=== PATIENT | female | born 1965 | race Two or more races ===

== ENCOUNTER 2021-05-21 07:18 | Outpatient (REF) | payer OTHER, SELFPAY ==
[2021-05-21 08:27] LABS: Alanine Aminotransferase 13 U/L (0-31); Albumin Level 4.3 g/dL (3.5-5.0); Alkaline Phosphatase 88 U/L (39-117); Anion Gap 10 (12-20); Aspartate Amino Transferase 19 U/L (5-31); Bilirubin Total 0.4 mg/dL (0.0-1.0); Blood Urea Nitrogen 16 mg/dL (9-16); Calcium 9.7 mg/dL (8.4-10.2); Carbon Dioxide 29 mmol/L (22-29); Chloride 105 mmol/L (96-108); Cholesterol 255 mg/dL; Estimated Glomerular Filt Rate > 60; Glucose Fasting 80 mg/dL (60-99); HDL Cholesterol 139 mg/dL; LDL Cholesterol Calculated 108 mg/dl; Potassium 4.3 mmol/L (3.3-5.1); Sodium 140 mmol/L (135-145); Total Protein 7.3 g/dL (6.5-8.0); Triglycerides 40 mg/dL
[2021-05-21 08:49] LABS: Vitamin D 25-OH Total 38.7 ng/mL (>30)
== END 2021-05-21 07:19 | disposition home or self-care (01) ==
LOC: HO.LAB 07:18
PROVIDERS: PCP Internal Medicine; Visit Provider Internal Medicine
DX: E78.00 Pure hypercholesterolemia, unspecified (principal); E55.9 Vitamin D deficiency, unspecified
CPT/HCPCS: 36415; 80053; 80061; 82306

== ENCOUNTER 2021-09-10 07:43 | Outpatient (REF) | payer OTHER, SELFPAY ==
--- NOTE | ~2021-09-10 | MM_ITS ---
EXAMINATION: MM SCREENING DIGITAL BREAST TOMOSYNTHESIS, BILATERAL CLINICAL INFORMATION: Screening. Asymptomatic. The lifetime risk of breast cancer based on the Tyrer-Cuzick Model is 15%. COMPARISON: Mammography: 07/08/2020, 02/27/2019, 02/17/2018, 01/30/2017, 01/11/2016 TECHNIQUE: Digital breast tomosynthesis is performed in both the craniocaudal and mediolateral oblique views along with computer-aided detection (CAD). Synthesized 2D images are generated from the tomosynthesis. FINDINGS: The breasts are heterogeneously dense, which may obscure small masses (ACR BI-RADS breast composition Category c). Parenchymal pattern is similar to prior studies. Scattered bilateral stable parenchymal asymmetries are present. There is no developing density. There is no interval mass or architectural abnormality. Again, scattered bilateral fine and some coarse lucent centered calcifications are present, greater in number on left. No interval suspicious calcifications. The axilla and skin contours are unremarkable. MM/MM tomosynthesis screening BI IMPRESSION: No significant changes from prior exams. ASSESSMENT: BI-RADS 2: Benign RECOMMENDATION: Routine annual mammography screening. This patient's information was entered into a reminder system with a target due date for their next mammogram.
== END 2021-09-10 07:44 | disposition home or self-care (01) ==
LOC: HO.MAMMO 07:43
PROVIDERS: Visit Provider Internal Medicine
DX: Z12.31 Encounter for screening mammogram for malignant neoplasm of breast (principal)
CPT/HCPCS: 77063; 77067

== ENCOUNTER → 2021-10-27 09:07 | Outpatient (BNVA) | payer OTHER, SELFPAY | PROVIDERS: PCP Internal Medicine; Visit Provider Physician Assistant | DX: S62.623B Displaced fracture of middle phalanx of left middle finger, initial encounter for open fracture (principal); W31.9XXA Contact with unspecified machinery, initial encounter | CPT/HCPCS: 12031; 73140; 90714; 90715; 99204 ==

== ENCOUNTER → 2021-10-29 09:56 | Outpatient (BNVA) | payer OTHER, SELFPAY | PROVIDERS: PCP Internal Medicine; Visit Provider Physician Assistant Medical | DX: S61.313A Laceration without foreign body of left middle finger with damage to nail, initial encounter (principal); W31.9XXA Contact with unspecified machinery, initial encounter | CPT/HCPCS: 99213 ==

== ENCOUNTER → 2021-11-02 07:57 | Outpatient (BNVA) | payer OTHER, SELFPAY | PROVIDERS: PCP Internal Medicine; Visit Provider Internal Medicine | DX: S62.663B Nondisplaced fracture of distal phalanx of left middle finger, initial encounter for open fracture (principal); W31.9XXA Contact with unspecified machinery, initial encounter | CPT/HCPCS: 99213 ==

== ENCOUNTER → 2021-11-05 08:29 | Outpatient (BNVA) | payer OTHER, SELFPAY | PROVIDERS: PCP Internal Medicine; Visit Provider Internal Medicine | DX: S62.663B Nondisplaced fracture of distal phalanx of left middle finger, initial encounter for open fracture (principal); W31.9XXA Contact with unspecified machinery, initial encounter; L29.9 Pruritus, unspecified; T36.1X5A Adverse effect of cephalosporins and other beta-lactam antibiotics, initial encounter | CPT/HCPCS: 99214 ==

== ENCOUNTER → 2021-11-08 08:02 | Outpatient (BNVA) | payer OTHER, SELFPAY | PROVIDERS: PCP Internal Medicine; Visit Provider Internal Medicine | DX: S61.213A Laceration without foreign body of left middle finger without damage to nail, initial encounter (principal); W23.0XXA Caught, crushed, jammed, or pinched between moving objects, initial encounter | CPT/HCPCS: 99212; 99214 ==

== ENCOUNTER → 2021-11-11 13:45 | Outpatient (BNVA) | payer OTHER, SELFPAY | PROVIDERS: PCP Internal Medicine; Visit Provider Internal Medicine | DX: S61.313A Laceration without foreign body of left middle finger with damage to nail, initial encounter (principal); W31.9XXA Contact with unspecified machinery, initial encounter | CPT/HCPCS: 99213 ==

== ENCOUNTER → 2021-11-16 08:56 | Outpatient (BNVA) | payer OTHER, SELFPAY | PROVIDERS: PCP Internal Medicine; Visit Provider Internal Medicine | DX: S61.313A Laceration without foreign body of left middle finger with damage to nail, initial encounter (principal); W31.9XXA Contact with unspecified machinery, initial encounter | CPT/HCPCS: 99213 ==

== ENCOUNTER → 2021-11-23 07:58 | Outpatient (BNVA) | payer OTHER, SELFPAY | PROVIDERS: PCP Internal Medicine; Visit Provider Internal Medicine | DX: S61.313D Laceration without foreign body of left middle finger with damage to nail, subsequent encounter (principal); S62.663D Nondisplaced fracture of distal phalanx of left middle finger, subsequent encounter for fracture with routine healing; W31.9XXD Contact with unspecified machinery, subsequent encounter; R11.0 Nausea | CPT/HCPCS: 73140; 99214 ==

== ENCOUNTER → 2021-11-25 13:50 | Outpatient (BNVA) | payer OTHER, SELFPAY | PROVIDERS: Visit Provider Physician Assistant | DX: S67.193A Crushing injury of left middle finger, initial encounter (principal); S62.603A Fracture of unspecified phalanx of left middle finger, initial encounter for closed fracture; W31.9XXA Contact with unspecified machinery, initial encounter | CPT/HCPCS: 99212 ==

== ENCOUNTER → 2021-11-30 08:14 | Outpatient (BNVA) | payer OTHER, SELFPAY | PROVIDERS: Visit Provider Internal Medicine | DX: S62.633D Displaced fracture of distal phalanx of left middle finger, subsequent encounter for fracture with routine healing (principal); W31.9XXD Contact with unspecified machinery, subsequent encounter | CPT/HCPCS: 99213 ==

== ENCOUNTER → 2021-12-07 12:59 | Outpatient (BNVA) | payer OTHER, SELFPAY | PROVIDERS: Visit Provider Internal Medicine | DX: S62.663D Nondisplaced fracture of distal phalanx of left middle finger, subsequent encounter for fracture with routine healing (principal); W31.9XXD Contact with unspecified machinery, subsequent encounter; M25.542 Pain in joints of left hand | CPT/HCPCS: 99213 ==

== ENCOUNTER → 2021-12-15 11:28 | Outpatient (BNVA) | payer OTHER, SELFPAY | PROVIDERS: Visit Provider Physician Assistant | DX: S62.639D Displaced fracture of distal phalanx of unspecified finger, subsequent encounter for fracture with routine healing (principal) | CPT/HCPCS: 99212 ==

== ENCOUNTER → 2021-12-23 09:35 | Outpatient (BNVA) | payer OTHER, SELFPAY | PROVIDERS: Visit Provider Internal Medicine | DX: S62.613D Displaced fracture of proximal phalanx of left middle finger, subsequent encounter for fracture with routine healing (principal); W31.9XXD Contact with unspecified machinery, subsequent encounter | CPT/HCPCS: 99213 ==

== ENCOUNTER 2022-03-22 09:30 | Outpatient (RCR) | payer OTHER, SELFPAY ==
--- NOTE | 2021-12-01 13:01 | MHC.OT.OEV ---
[address] [phone] F: [phone] Occupational Therapy Evaluation Diagnosis: R 3RD FINGER CRUSH INJURY Date of Onset: 10/27/21 Date of Surgery: Attending Provider: Pedro Gu Prescribed Treatment: EVAL AND DEBI KILPATRICK Follow Up Appointment: 12/07/21 History of Current Condition: 56-year-old [id number] female who presents the office today after sustaining a crush injury while at work on 10/27/2021 to the left middle finger. XRAYS REVEALED Comminuted fracture distal phalangeal tuft left third distal phalanx with associated laceration soft tissues. SUTURES WERE PLACED AFTER INJURY AND REMOVED TWO WEEKS LATER. FINISHED ANTIBIOTICS 11/30/20. 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 REQUIRED TO LIFT ABOUT 50 POUNDS AT TIMES. HOBBIES: TO EXERCISE, READING, PLAY WITH GRANDKIDS (SIX GRANDCHILDREN RANGES FROM 17-3 YEARS OLD) Living Situation, Family and/or Social Support: LIVES WITH SPOUSE Current Level of Function and Occupation Self Care, Employment, Leisure: [employer] SINCE INJURY. DIFFICULTIES WITH USING A KNIFE/ CUTTING, WASHING DISHES, LIFTING GROCERY BAGS. TROUBLE WITH BUTTONING, PULLING UP PANTS. Sleep: MODERATE DIFFICULTIES WITH SLEEPING Driving: PAIN WITH USING TURN SIGNAL/ LEFT HAND TASKS Pain Assessment Pain Score: 7-9/10 Pain Scale Used: Numeric (0 - 10) Pain Location and Description: LEFT MIDDLE FINGER, DISTAL TIP 7/10 AT REST 9/10 WITH USE Aggravating Factors: FLEXING FINGER, BUMPING/ TOUCHING NAIL BED Alleviating Factors: IBUPROFEN, RESTING; HAS NOT TRIED ICE/HEAT Skin and Soft Tissue Assessment Skin and Soft Tissue: Nail Changes Ecchymosis Comments: ECCHYMOSIS TO NAIL BED IN L MF, WELL ESCHAR TISSUE TO DISTAL FINGER PAD NAIL REMAINS INTACT Sensory Assessment Temperature: Light Touch: Left Impaired Proprioception: Vibration: Comments: REPORTS HYPERSENSITIVITY TO DISTAL END OF MF SEMMES TIKA IMPAIRED TO LIGHT TOUCH L DISTAL END OF MF ULNAR > RADIAL ASPECT Edema Assessment Upper Extremity: Lower Extremity: Comments: CIRCUMFERENCE DIPj L 5.0 CM, R 4.8 CM CIRCUMFERENCE PIPj L 5.9 CM, R 5.6 CM Dexterity Assessment Dexterity: Left Impaired Comments: FUNCTIONAL DEXTERITY TEST: LEFT 54 SECONDS (MIN FUNCTIONAL), RIGHT 20 SECONDS GUARDING LEFT MF WITH DEXTERITY TESTING AROM(PROM) Strength Wrist Flexion: L 52, R 54 Extension: L 65, R 65 Ulnar Deviation: Radial Deviation: Comments: Flexion: Extension: Ulnar Deviation: Radial Deviation: Comments: Digits Index MCP: PIP: DIP: Long MCP: L 88, R 86 PIP: L 0/68, R 86 DIP: L 0/0, R 62 Ring MCP: PIP: DIP: Small MCP: PIP: DIP: Comments: Gross Grasp: R 22 Lateral Pinch: R 5 Two-Point Pinch: R 3 Three-Jaw Lavon: R 4 Comments: VEGETABLE SORTER AND PINCH TESTING DEFERRED ON LEFT Patient Education Primary Language: Excel Vba Developer Required: No Current Knowledge: Understands information with skills for self-management Teaching Method: Demonstration Handouts Phone Call Verbal Education Needs Identified on Evaluation: ADL's Disease Information Equipment Use Exercise Pain Safety How did patient/family demonstrate learning? Patient demonstrates Patient verbalizes Barriers to Learning: None Readiness for Learning: Accepting Who was educated? Patient Comments: Plan of Care Assessment: MS FITZGERALD IS 5 WEEKS S/P TUFT FRACTURE DUE TO A CRUSH INJURY. 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 A 78% LIMITATION IS REPORTED PER THE QUICK DASH ASSESSMENT. SHE WOULD CONTINUE TO BENEFIT FROM SKILLED OT TO ADDRESS ROM, STRENGTH, COORDINATION, DESENSITIZATION STRATEGIES, WOUND CARE, AND WORK CONDITIONING TASKS. STG Duration: 2 WEEKS Short Term Goals: IND HEP IND DESENSITIZATION STRATEGIES IND USE OF HEAT/ICE INCREASE DIP FLEX TO 20 DEGREES INCREASE PIP FLEX TO 80 DEGREES REPORT <5/10 PAIN AT REST LTG Duration: 4 WEEKS Formation Testing Operator Goals: L VEGETABLE SORTER >15 POUNDS INCREASE DIP FLEX TO 40 DEGREES IMPROVE DEXTERITY TO FUNCTIONAL PER FUNCTIONAL DEXTERITY TEST FOR ADLs QUICK DASH <50% TOLERATE LIFTING ABOUT 15 POUNDS WITH <5/10 PAIN USING PROPER BODY MECHANICS Frequency and Duration: The patient will be seen 3X/WEEK FOR 4 WEEKS Treatment Plan: Therapeutic Exercise Therapeutic Activity Home Exercise Program Splinting Neuro Re-ed Patient Education Desensitization/Sensory Re-ed Edema Control ADL Training Ultrasound NMES Iontophoresis Paraffin Fluidotherapy MHP Cold Packs Joint Mobilization Soft Tissue Mobilization Kinesiotaping Electronically Signed By: MARY GILLILAND OTR/L Reviewed/agree with student documentation: N/A Therapist: Please sign and return to therapist, Thank you for your referral.
--- NOTE | 2022-03-22 09:20 | MHC.OT.DC ---
[address] [phone] F: [phone] Occupational Therapy Discharge Note Provider: Pedro Gu Diagnosis: R 3RD FINGER CRUSH INJURY Date of Surgery: Date of Evaluation: 12/01/21 Date of Discharge: 03/22/22 Treatments to Date: Cancellations to Date: 7 No Shows to Date: 1 Discharge Status: Discharge Summary: GOOD INC IN DIPJ FLEX AFTER TREATMENT , GAINS NOT CARRIED OVER FROM LAST APPT CON'T MILD DIGIT EDEMA. FINGERNAIL TRIMED. TENDER AT MEDIAL TIP. WILL BENEFIT FROM MORE AGGRESSIVE HEP Pt GOING TO THE GYM, SHOULD BE ABLE TO TOLERATE LIFTING WHEN SHE RETURNS TO WORK CX AND NO SHOWED LAST SCHEDULED APPTS Electronically Signed By: FAUSTO LIM OT CHT CLT Reviewed/agree with student documentation: N/A Therapist: Please Sign and return to therapist, thank you for your referral.
--- NOTE | 2022-03-22 10:34 | MHC.OT.DC ---
[address] [phone] F: [phone] Occupational Therapy Discharge Note Provider: Pedro Gu Diagnosis: R 3RD FINGER CRUSH INJURY Date of Surgery: Date of Evaluation: 12/01/21 Date of Discharge: 03/22/22 Treatments to Date: 23 Cancellations to Date: 7 No Shows to Date: 1 Discharge Status: Improved Function Independent with HEP Discharge Summary: Pt lapse in rx due to Covid sx . Pt working on ROM and hand strength Carried over gains from last appt PIPj flex 90 deg and DIPj flex 40 deg and inc DIPj flexion today to 45 deg Pt is indep with her HEP , has a digit flexion strap and her own goniometer to self assess She plans to return to the gym , now out of quarantine and she is anxious to RTW Electronically Signed By: FAUSTO LIM OT CHT CLT Reviewed/agree with student documentation: N/A Therapist: Please Sign and return to therapist, thank you for your referral.
== END 2022-03-22 10:34 ==
LOC: HO.OT 09:30
PROVIDERS: Visit Provider Internal Medicine
DX: S62.632D Displaced fracture of distal phalanx of right middle finger, subsequent encounter for fracture with routine healing (principal)
CPT/HCPCS: 29130; 29131; 97035; 97110; 97112; 97140; 97166; 97530; 97760

== ENCOUNTER 2022-07-15 11:56 | Outpatient (REF) | payer OTHER, SELFPAY ==
--- NOTE | ~2022-07-15 | XR_ITS ---
EXAMINATION: XR SHOULDER, RIGHT CLINICAL INFORMATION: Pain COMPARISON: None TECHNIQUE: AP external rotation, Grashey, scapular Y, and axillary views of the right shoulder. FINDINGS: Mild acromioclavicular arthritis. No fracture. Glenohumeral and acromioclavicular alignment is anatomic with normal joint space. No abnormal soft tissue calcifications. XR/XR shoulder RT min 2V IMPRESSION: Mild acromioclavicular arthritis. No acute findings.
== END 2022-07-15 11:57 | disposition home or self-care (01) ==
LOC: HO.XRAY 11:56
PROVIDERS: PCP Internal Medicine; Visit Provider Internal Medicine
DX: M25.511 Pain in right shoulder (principal)
CPT/HCPCS: 73030

== ENCOUNTER 2022-09-09 09:43 | Outpatient (REF) | payer OTHER, SELFPAY | END 2022-09-09 09:44 | disposition home or self-care (01) | LOC: HO.MRI 09:43 | PROVIDERS: Visit Provider Internal Medicine | DX: Z13.89 Encounter for screening for other disorder (principal) ==

== ENCOUNTER 2022-09-16 07:47 | Outpatient (REF) | payer OTHER, SELFPAY ==
--- NOTE | ~2022-09-16 | MM_ITS ---
EXAMINATION: MM SCREENING DIGITAL BREAST TOMOSYNTHESIS, BILATERAL CLINICAL INFORMATION: Screening. Asymptomatic. The lifetime risk of breast cancer based on the Tyrer-Cuzick Model is 14%. COMPARISON: Mammography: 09/10/2021, 07/08/2020, 02/27/2019 TECHNIQUE: Digital breast tomosynthesis is performed in both the craniocaudal and mediolateral oblique views along with computer-aided detection (CAD). Synthesized 2D images are generated from the tomosynthesis. FINDINGS: There are scattered areas of fibroglandular density (ACR BI-RADS breast composition Category b). Breast tissue composition borders on heterogeneously dense. Parenchymal pattern is similar to prior studies. There is no developing density or interval architectural abnormality. Again, there are scattered minor asymmetries similar to prior studies. There are scattered punctate calcifications in each breast similar in number and distribution to prior studies. The axilla and skin contours are unremarkable. MM/MM tomosynthesis screening BI IMPRESSION: No mammographic evidence of malignancy. ASSESSMENT: BI-RADS 2: Benign RECOMMENDATION: Routine annual mammography screening. This patient's information was entered into a reminder system with a target due date for their next mammogram.
== END 2022-09-16 07:48 | disposition home or self-care (01) ==
LOC: HO.MAMMO 07:47
PROVIDERS: PCP Internal Medicine; Visit Provider Internal Medicine
DX: Z12.31 Encounter for screening mammogram for malignant neoplasm of breast (principal)
CPT/HCPCS: 77063; 77067

== ENCOUNTER 2022-09-17 07:26 | Outpatient (REF) | payer OTHER, SELFPAY ==
[2022-09-17 07:43] LABS: MANUAL DIFF FLAG NO
[2022-09-17 08:08] LABS: Basophils Percent Auto 0.8 % (0-2); Eosinophils Absolute Auto 0.5 X10*3/uL (0.0-0.4); Eosinophils Percent Auto 9.6 % (0-4); Hematocrit 45.1 % (37.0-47.0); Hemoglobin 14.4 g/dl (12.0-16.0); Imm Gran Abs Auto 0.01 X10*3/uL (0.00-0.03); Imm Gran Pct Auto 0.2 % (0.0-0.4); Lymphocytes Absolute Auto 2.3 X10*3/uL (1.2-4.9); Lymphocytes Percent Auto 45.2 % (20-40); Mean Corpuscular HGB Conc 31.9 g/dl (31.0-35.0); Mean Corpuscular Hemoglobin 27.3 pg (27.0-33.0); Mean Corpuscular Volume 85.6 fL (80.0-98.0); Mean Platelet Volume 10.3 fL (9.4-12.3); Monocytes Absolute Auto 0.4 X10*3/uL (0.1-1.2); Monocytes Percent Auto 8.6 % (2-11); Neutrophils Absolute Auto 1.8 x10*3/uL (2.0-8.3); Neutrophils Percent Auto 35.6 % (45-73); Platelet Count 270 X10*3/uL (160-400); Red Blood Count 5.27 X10*6/uL (4.20-5.50); Red Cell Distribution Width 13.2 % (11.0-16.0); White Blood Count 5.1 X10*3/uL (4.8-10.8)
[2022-09-17 08:40] LABS: Alanine Aminotransferase 13 U/L (0-31); Albumin Level 4.5 g/dL (3.5-5.0); Alkaline Phosphatase 91 U/L (39-117); Anion Gap 15 (12-20); Aspartate Amino Transferase 20 U/L (5-31); Bilirubin Total 0.3 mg/dL (0.0-1.0); Blood Urea Nitrogen 12 mg/dL (9-16); Calcium 9.9 mg/dL (8.4-10.2); Carbon Dioxide 28 mmol/L (22-29); Chloride 104 mmol/L (96-108); Cholesterol 253 mg/dL; Estimated Glomerular Filt Rate > 60; Glucose Fasting 81 mg/dL (60-99); HDL Cholesterol 109 mg/dL; LDL Cholesterol Calculated 128 mg/dl; Potassium 4.2 mmol/L (3.3-5.1); Sodium 143 mmol/L (135-145); Total Protein 7.4 g/dL (6.5-8.0); Triglycerides 84 mg/dL
[2022-09-17 09:02] LABS: Appearance Urine Clear; Color Urine Yellow; Glucose Urine UA Negative (Negative); Leukocyte Esterase Urine Trace (Negative); Nitrite Urine Negative (Negative); Specific Gravity - Urine <= 1.005 (1.005-1.025); UMIC TRIGGER UACC YES; Urine Blood Negative (Negative); Urine Ketones Negative (Negative); Urine Protein Negative (Neg-Trace)
[2022-09-17 09:03] LABS: TSH reflex Free T4 0.86 uIU/mL (0.32-4.0); Vitamin D 25-OH Total 34.4 ng/mL (>30)
[2022-09-17 09:08] LABS: Bacteria Urine None Seen (None Seen); Hyaline Casts Urine 0-2 /LPF (0-2); RBC Urine 0-2 /HPF (0-2); Squamous Epithelial Cell Urine 0-2 /HPF (0-2); WBC Urine 0-5 /HPF (0-5)
== END 2022-09-17 07:27 | disposition home or self-care (01) ==
LOC: HO.LAB 07:26
PROVIDERS: PCP Internal Medicine; Visit Provider Internal Medicine
DX: Z00.00 Encounter for general adult medical examination without abnormal findings (principal); E78.00 Pure hypercholesterolemia, unspecified; E55.9 Vitamin D deficiency, unspecified
CPT/HCPCS: 36415; 80053; 80061; 81001; 81003; 82306; 84443; 85025

== ENCOUNTER 2022-11-16 06:36 | Day surgery (SDC) | payer OTHER, SELFPAY ==
[2022-11-16] VITALS (17 sets, daily range): BP systolic 108–138; BP diastolic 66–84; PULSE 61–84; RESP 15–21; TEMP 36.4–36.8; O2SAT 90–99; BMI 28.0
[2022-11-16] MEDS: Lactated Ringers 1,000 ML 100 ML IVCONT (07:26)
--- NOTE | 2022-11-16 11:05 | P.OP_ITS ---
Operative Note Operative Note Date of Service: 11/16/22 Narrative: Date of Service: 11/16/22 Pre-op diagnosis: Right RTC tear Post-op diagnosis: same Procedure: Right RTC repair Implants: Cerrato and Nephew Helacoil x 4 Surgeon: Kevin Palomino MD Anesthesia: GETA and regional Was an Apprentice Carpenter used for this Procedure?: Yes Apprentice Carpenter: Mary Richey Estimated blood loss (mL): 20 IV fluids (mL): 1,000 Pathology: none sent Condition: stable Disposition: PACU Procedure in detail: Patient was brought to the operating room and placed the the beach chair position. All bony prominences were well padded and the limb was prepped and draped in standard sterile fashion. A time out was called to identify proper site, proper procedure and proper surgeon. IV antibiotics per weight were administered. I began by making a posterolateral stab incision with a 15 blade. A blunt trochar was placed into the glenohumeral joint and I insufflated the joint with saline and a 30 degree arthroscope was placed. I established an outside- in anterior portal just distal to the biceps tendon. I then began my inspection of the glenohumeral joint. There was normal biceps anchor and labrum. There were no cartilage changes. The sbuscapularis was intract. There was a full thickness superior cuff tear with mild retraction. I then removed the trochar and entered the subacromial space. A direct lateral portal was then established and I performed a bursectomy. The cuff was then examined. There was a full thickness crescentic tear of the supra and infraspinatus that was mobile. The tear was mobile. I establiched an additional posterosuperior portal. I then placed two medial row double loaded anchors and then, using the Scorpion suture pasing device, I brought the suture limbs through the medial cuff. I then debrided the bare area down to bleeding bone and, using a cross bridge configuration, brought four limbs to each of two lateral 5.5mm anchors. This re-approximated the cuff anatomy anatomically. I then performed a 5 mm subacromial decompression. Once I was satisfied with the repair final images were captured and I removed all instrumentation. Portals were closed with nylon. Patient was placed in an abduction sling, extubated and brought to the recovery room in stable condition. There were no known complications.
--- NOTE | 2022-11-16 11:29 | MHC.SHP ---
Pre-Procedural Eval Section A Date of Service: 11/16/22 The patient is an INPATIENT: No Changes since office visit: No Cold of Flu in the past 2 weeks, No New Medical Problems, No Changes in Medication and No Patient answered all questions The History & Physical has been completed within 30 days and I have reviewed it.: Yes Section B Chief Complaint: Complete rotator cuff tear or rupture of right Allergies: Allergies Allergy/AdvReac Type Severity Reaction Status Date / Time amoxicillin [AMOXICILLIN] Allergy Mild RASH Verified 11/16/22 06:59 Penicillins Allergy Rash Verified 11/16/22 06:59 Plan I have reviewed the history and physical and performed a pertinent physical examination on my patient. No changes have occurred unless specified. Time Spent With Patient Time: Total time managing care of this patient today ____ minutes.
[2022-11-16] MEDS: Acetaminophen 1,000 MG/100 ML PIGGYBACK 400 MG IV (11:37)
[2022-11-16] MEDS: fentaNYL citrate/PF 100 MCG/2 ML VIAL 25 MCG IVPUSH ×2 (11:38→12:08)
[2022-11-16] MEDS: oxyCODONE HCl Immed Release 5 MG TABLET PO (11:38)
--- NOTE | 2022-11-16 15:33 | HO.ANESPROP2 ---
HPI - Anesthesia Eval Consult details Narrative: 57 F for right rotator cuff repair PMFSH Active Problems Active Problems: All Active Problems (Updated 11/16/22 @ 06:55 by Salina Wyatt, RN) S/P rotator cuff repair (Acute) Annual physical exam (Acute) Pure hypercholesterolemia (Acute) Frequent bowel movements (Acute) Fracture of finger of left hand (Acute) Closed fracture of tuft of distal phalanx of finger (Acute) Right shoulder pain (Acute) Painful arc syndrome of right shoulder (Acute) Cervical radiculopathy (Acute) Rotator cuff tear arthropathy of right shoulder (Acute) Overweight (BMI 25.0-29.9) (Acute) Depression (Acute) Anxiety (Acute) Insomnia (Acute) Rosacea (Acute) Vitamin D deficiency (Acute) Migraine (Acute) Past Medical History Medical History (Updated 11/16/22 @ 06:55 by Salina Wyatt RN) Anxiety Chronic recurrent major depressive disorder Depression Hyperlipidemia, unspecified Insomnia Migraine Overweight (BMI 25.0-29.9) Rosacea Unspecified hemorrhoids Vitamin D deficiency Family History Family History Father CVD (cardiovascular disease) Diabetes mellitus HTN (hypertension) Mother Diabetes mellitus HTN (hypertension) Family history of problems with anesthesia: No Surgical History Surgical History (Updated 11/16/22 @ 12:36 by Mary Richey PA-C) H/O colonoscopy (~06/2018) H/O tubal ligation Hx laparoscopic cholecystectomy History of Problems with Anesthesia: No Social History Social History Housing: House Alcohol intake: former Patient Tobacco Use Status: Never used Tobacco Second Hand Smoke Exposure: No service: No Current occupational status: employed 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 Cognitive needs: No Hearing needs: No Vision needs: Yes Meds Allergies Allergy/AdvReac Type Severity Reaction Status Date / Time amoxicillin [AMOXICILLIN] Allergy Mild RASH Verified 11/16/22 06:59 Penicillins Allergy Rash Verified 11/16/22 06:59 Home Medications Medication Instructions Recorded Confirmed Last Taken Type ergocalciferol (vitamin D2) 25,000 1 unit PO DAILY 11/16/22 11/16/22 Unknown History unit capsule Exam Exam Date and Time: November 16, 2022 1533 Height,Weight and Vital Signs: Height 5 ft 2 in Weight 69.4 kg Last Vital Signs Temp 98.3 F 11/16/22 13:24 Pulse 66 11/16/22 13:24 Resp 19 11/16/22 13:24 BP 116/73 11/16/22 13:24 Pulse Ox 96 11/16/22 13:24 O2 Del Method 11/16/22 13:24 O2 Flow Rate 1 11/16/22 12:54 Airway Mallampati Class: III TM Dist: >3cm Neck ROM: Full Loose/Missing/Broken Teeth: Yes Heart: S1,S2 Lungs: b/l breath sounds Assessment and Plan Assessment Anesthesia Assessment: Anesthesia Plan Discussed and Chart Reviewed Final Anesthetic Review Family History of Problems with Anesthesia: No History of Problems with Anesthesia: No NPO: Yes ASA Class: II Final Preanesthetic Review: Meds/Allgs Chart Reviewed, Consent Obtained/Reviewed and Anes Risks/Benef Reviewed Patient Risk: Intermediate Procedure Risk: Intermediate Anesthetic Plan Anesthetic Plan: GA and Regional Block Disposition: Standard PACU
== END 2022-11-16 14:18 | disposition home or self-care (01) ==
PROVIDERS: PCP Internal Medicine; Visit Provider Orthopaedic Surgery
PROC: (CPT 29805; principal; 2022-11-16 08:40)
DX: M75.121 Complete rotator cuff tear or rupture of right shoulder, not specified as traumatic (principal); M12.811 Other specific arthropathies, not elsewhere classified, right shoulder; E78.5 Hyperlipidemia, unspecified; E55.9 Vitamin D deficiency, unspecified; G47.00 Insomnia, unspecified; G43.909 Migraine, unspecified, not intractable, without status migrainosus; F33.9 Major depressive disorder, recurrent, unspecified; E66.3 Overweight; Z68.28 Body mass index [BMI] 28.0-28.9, adult; Z88.0 Allergy status to penicillin
CPT/HCPCS: 29827; 29826; C1713; J0131; J0171; J0690; J1100; J2250; J2405; J2550; J2795; J3010

== ENCOUNTER → 2022-11-28 13:07 | Outpatient (BNVA) | payer OTHER, SELFPAY | PROVIDERS: Visit Provider Physician Assistant | DX: Z13.89 Encounter for screening for other disorder (principal) ==

== ENCOUNTER → 2022-12-26 10:53 | Outpatient (BNVA) | payer OTHER, SELFPAY | PROVIDERS: PCP Internal Medicine; Visit Provider Physician Assistant | DX: Z13.89 Encounter for screening for other disorder (principal) ==

== ENCOUNTER → 2023-02-06 10:51 | Outpatient (BNVA) | payer OTHER, SELFPAY | PROVIDERS: PCP Internal Medicine; Visit Provider Physician Assistant | DX: Z13.89 Encounter for screening for other disorder (principal) ==

== ENCOUNTER → 2023-04-03 09:54 | Outpatient (BNVA) | payer OTHER, SELFPAY | PROVIDERS: PCP Internal Medicine; Visit Provider Physician Assistant ==

== ENCOUNTER 2023-05-03 10:00 | Outpatient (RCR) | payer OTHER, SELFPAY ==
--- NOTE | 2022-12-01 17:15 | MHC.PT.EP ---
[facility] [place] Office [place] Office [place] Office [address] Brent Miranda [address] [phone] F: [phone] F: [phone] F: [phone] F: [phone] Physical Therapy Plan of Care Date of Evaluation: Date of Surgery: 11/16/2022 Diagnosis: R shoulder / RTC repair Assessment: Patient is a 57 year old female presenting to PT s/p R RTC repair on 11/16/2022. She presents today with impairments in pain, ROM, shoulder strength, posture, protocol limitations. 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 Clinical presentation today is most consistent with signs and sx associated with s/p R RTC repair on 11/16/2022 and pt will benefit from skilled PT to address the following problems and impairments noted upon evaluation: pain, ROM, shoulder strength, posture, protocol limitations. These problems limit the patient with the following functional activities: ADLs, reaching, lifting. The prescribed treatment plan of care is medically necessary. Co-morbidities of none were identified and taken into considerations of plan of care. Pt was educated on HEP, role of PT, prognosis, POC. Frequency and Duration: The patient will be seen 2 x week x 20 weeks Short Term Goals: Pt will demonstrate full R elbow AROM in 3 weeks. Pt will demonstrate full PROM in 5 weeks. Pt will demonstrate R shoulder strength at least 3/5 in 8 weeks. Pt will demonstrate full AROM in 10 weeks for improved ability to reach. Halfway Goals: Pt will demonstrate R shoulder MMT strength at least 4/5 in 15 weeks. Pt will demonstrate R shoulder MMT strength 5/5 in 20 weeks without compensation for improved ability to perform ADLs at her PLOF. Pt will demonstrate improved SPADI score to <50 in 20 weeks for return to PLOF. Pt will demonstrate ability to lift and reach household items onto a shelf without scapular and UT compensation in 20 weeks for return to PLOF. Treatment Plan: Modalities to reduce pain, spasms and effusion. Manual therapy to restore motion and function. Therapeutic exercise to improve strength and flexibility. Neuromuscular re-education for posture and balance. Therapeutic activities to return to functional activities of daily living. Electronically signed by: Samantha Schwarz PT, DPT, ATC Please sign and return to therapist. Thank you for your referral.
--- NOTE | 2023-05-03 11:02 | MHC.PT.DC ---
[facility] [place] Office [place] Office [address] Office [address] Brent Miranda [address] [phone] F: [phone] F: [phone] F: [phone] F: [phone] Physical Therapy Discharge Report Diagnosis: R shoulder / RTC repair Date of Surgery: 11/16/2022 Date of Evaluation: 12/01/22 Date of Discharge: 05/03/23 Treatments to Date: 44 Cancellations to Date: 0 No Shows to Date: 0 Discharge Status: Achieved Goals Improved Function Independent with HEP Discharge Summary: 05/03/2023: Pt has made good progress since start of care. She is currently demonstrating improvements in all aspects and function. She does however continue to be limited with end range AROM against gravity. She also continues to lack some strength deficits in terms of function. She is independent and compliant with her HEP. At this point we have maximized benefits of skilled PT and skilled PT is no longer indicated. She understands that with continuing with her HEP she will continue to make strength and ROM gains. She also understands that the healing process for this type of surgery is lengthy and that it will take close to a full year before she is starting to feel like she is at her PLOF. At this point I feel confident in her compliance and motivation to continue at home. She is understanding and in agreement with this plan. Electronically signed by: Samantha Schwarz, PT, DPT, ATC Please sign and return to therapist. Thank you for your referral.
== END 2023-05-03 11:02 | disposition home or self-care (01) ==
LOC: HO.PTCHIC 10:00
PROVIDERS: PCP Internal Medicine; Visit Provider Physician Assistant
DX: Z98.890 Other specified postprocedural states (principal)
CPT/HCPCS: 97110; 97140; 97161; 97530

== ENCOUNTER → 2023-05-15 09:57 | Outpatient (BNVA) | payer OTHER, SELFPAY | PROVIDERS: PCP Internal Medicine; Visit Provider Orthopaedic Surgery ==

== ENCOUNTER 2023-06-08 12:48 | Outpatient (AMB) | payer OTHER, SELFPAY ==
--- NOTE | 2023-06-08 12:51 | MHC.OFFVIS ---
Intake Vital Signs 06/08/23 12:55 Height 5 ft 2 in Weight 152 lb BMI 27.8 Intake Visit Reasons: OV - Right RTC Repair 11/16/22 - Need RTW note Intake Note: Eboni is a 57 year old right hand dominant female who presents today for a follow up s/p right shoulder /RTC repair, 11/16/22 NE. Patient reports she is doing well, occasional pain with activity. States good ROM. Currently working light duty and is looking for a clearance to return back to full duty no restrictions. She no longer wants to be precribed meloxicam, finds relief with tylenol and icing. Allergies amoxicillin [AMOXICILLIN] Allergy (Mild, Verified 06/08/23 12:54) RASH Penicillins Allergy (Verified 06/08/23 12:54) Rash HPI OV - Right RTC Repair 11/16/22 - Need RTW note HPI Details 57-year-old right hand dominant female who presents in the office today for 6 months status post right rotator cuff repair, which was performed on 11/16/[address] Palomino. The patient reports she is doing well. She confirms occasional pain with activities. She confirms good ROM. She reports she is no longer taking Meloxicam. She states she finds relief with Tylenol and icing. 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 Patient reports having a pain in her back. REPLACED BY [facility] Medical History Anxiety Chronic recurrent major depressive disorder Depression Hyperlipidemia, unspecified Insomnia Migraine Overweight (BMI 25.0-29.9) Rosacea Unspecified hemorrhoids Vitamin D deficiency Surgical History H/O colonoscopy (~06/2018) H/O tubal ligation Hx laparoscopic cholecystectomy S/P rotator cuff repair (~11/16/22) Family History Father CVD (cardiovascular disease) Diabetes mellitus HTN (hypertension) Mother Diabetes mellitus HTN (hypertension) Social History Housing: House Alcohol intake: former Patient Tobacco Use Status: Never used Tobacco Second Hand Smoke Exposure: No service: No Current occupational status: employed 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 Cognitive needs: No Hearing needs: No Vision needs: Yes Review of Systems Const All systems reviewed & are unremarkable except as noted in HPI and below Physical Exam Vital Signs: BMI result Body Mass Index 27.8 Const General: cooperative and no acute distress Orientation/consciousness: patient oriented x3 Resp Effort & Inspection: normal respiratory effort and able to speak in complete sentences Cardio Rate: regular rate Peripheral pulses: Peripheral pulses 2+ throughout GI Palpation (GI): Soft to palpation Skin Lesions: no lesions Rashes: no rashes Neuro General: patient oriented x3 Extrem Other: Right shoulder: Full shoulder ROM in forward flexion and abduction. Able to reach T12. NVI. Psych Mental Status: mental status grossly normal Assessment & Plan Assessment & Plan (1) S/P rotator cuff repair: Onset Date: ~11/16/22 Comment: Dr. Palomino Code(s): Z98.890 - Other specified postprocedural states Plan Ms. Cobian is a 57-year-old right hand dominant female who presents in the office today for 6 months status post right rotator cuff repair, which was performed on 11/16/[address] Palomino. The patient reports she is doing well. She confirms occasional pain with activities. She confirms good ROM. She reports she is no longer taking Meloxicam. She states she finds relief with Tylenol and icing. 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 The patient was given a work note stating she can work light duty with lifting restriction of 20 pounds. She will increase 5 pounds each week. She has a complaint of lower back pain. Therefore, I placed a referral to Pain Management for further evaluation and treatment of her back pain. Follow up will be in 6 weeks, or sooner if needed. Orders: Referrals Pain Management Referral M54.50 - Low back pain, unspecified Patient Instructions: Scribed for Mary Richey PA-C by Dominique Caballero medical dir, on 06/08/2023 at 12:52 pm, EST. Your attestation Coding Level of Care Code Est Pt Level 3 (38240) Diagnoses S/P rotator cuff repair Z98.890
[2023-06-08 12:55] VITALS: BMI 27.8
== END 2023-06-08 13:54 | disposition home or self-care (01) ==
PROVIDERS: PCP Internal Medicine; Visit Provider Physician Assistant
DX: Z47.89 Encounter for other orthopedic aftercare (principal); Z98.890 Other specified postprocedural states; M54.50 Low back pain, unspecified
CPT/HCPCS: 99213

== ENCOUNTER → 2023-06-08 12:48 | Outpatient (BNVA) | payer OTHER, SELFPAY | PROVIDERS: PCP Internal Medicine; Visit Provider Physician Assistant ==

== ENCOUNTER 2023-07-21 10:53 | Outpatient (AMB) | payer OTHER, SELFPAY ==
--- NOTE | 2023-07-21 11:16 | A.OFFVIS_ITS ---
Intake Vital Signs 07/21/23 11:20 Height 5 ft 2 in Weight 152 lb BMI 27.8 Intake Visit Reasons: OV-Right RTC Repair 11/16/22 Intake Note: Eboni is a 57 year old right hand dominant female who presents today for a follow up s/p right shoulder /RTC repair, 11/16/22 NE. Patient reports she is doing great, no pain or discomfort. She states that she went back to work and she is doing well. Patient reports PT went well and she is performing her exercises at home. Allergies amoxicillin [AMOXICILLIN] Allergy (Mild, Verified 07/21/23 11:20) RASH Penicillins Allergy (Verified 07/21/23 11:20) Rash HPI OV-Right RTC Repair 11/16/22 HPI Details 57-year-old female who presents in the office today 9 months status post right rotator cuff repair, which was performed on 11/16/[address] Palomino. The patient reports she is doing great with no pain or discomfort. She confirms she returned to work and is doing well. She states Physical Therapy went well and confirms she is working on the exercise at home. She reports pain in the left shoulder that mimics the right shoulder pain. [facility] Medical History Anxiety Chronic recurrent major depressive disorder Depression Hyperlipidemia, unspecified Insomnia Migraine Overweight (BMI 25.0-29.9) Rosacea Unspecified hemorrhoids Vitamin D deficiency Surgical History H/O colonoscopy (~06/2018) H/O tubal ligation Hx laparoscopic cholecystectomy S/P rotator cuff repair (~11/16/22) Family History Father CVD (cardiovascular disease) Diabetes mellitus HTN (hypertension) Mother Diabetes mellitus HTN (hypertension) Social History Housing: House Alcohol intake: former Patient Tobacco Use Status: Never used Tobacco Second Hand Smoke Exposure: No service: No Current occupational status: employed 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 Cognitive needs: No Hearing needs: No Vision needs: Yes Review of Systems Const All systems reviewed & are unremarkable except as noted in HPI and below Physical Exam Vital Signs: BMI result Body Mass Index 27.8 Const General: cooperative, healthy appearing and no acute distress Resp Effort & Inspection: normal respiratory effort and able to speak in complete sentences Cardio Rate: regular rate Peripheral pulses: Peripheral pulses 2+ throughout GI Palpation (GI): Soft to palpation Skin Lesions: no lesions Rashes: no rashes Extrem Other: Right shoulder: Normal to inspection. No ecchymosis, erythema, or edema. Full shoulder ROM in all planes. Negative cross-body reach. Negative empty can. Ne gative drop arm. NVI. Assessment & Plan Assessment & Plan (1) S/P rotator cuff repair: Onset Date: ~11/16/22 Code(s): Z98.890 - Other specified postprocedural states Plan Ms. Cobian is a 57-year-old female who presents in the office today 9 months status post right rotator cuff repair, which was performed on 11/16/[address] Palomino. The patient reports she is doing great with no pain or discomfort. She confirms she returned to work and is doing well. She states Physical Therapy went well and confirms she is working on the exercise at home. She reports pain in the left shoulder that mimics the right shoulder pain. 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 She will follow up for the right shoulder PRN, or sooner if needed. She presents with a complaint about left shoulder pain, which she states is similar to the right shoulder pain she has had in the past. We discussed that she can schedule an appointment for further evaluation and treatment. We discussed that I would recommend a cortisone injection before moving forward with an MRI. She confirms working on home exercises that she learned for the right shoulder on the left shoulder. Follow up for the left shoulder is to be scheduled, or sooner if needed. Patient Instructions: Scribed for Mary Richey PA-C by Dominique Caballero medical professionals, on 07/21/2023 at 10:55 am, EST. Coding Level of Care Code Est Pt Level 3 (60727) Diagnoses S/P rotator cuff repair Z98.890
[2023-07-21 11:20] VITALS: BMI 27.8
== END 2023-07-21 11:27 | disposition home or self-care (01) ==
PROVIDERS: PCP Internal Medicine; Visit Provider Physician Assistant
DX: M12.811 Other specific arthropathies, not elsewhere classified, right shoulder (principal)
CPT/HCPCS: 99213

== ENCOUNTER → 2023-07-21 10:53 | Outpatient (BNVA) | payer OTHER, SELFPAY | PROVIDERS: PCP Internal Medicine; Visit Provider Physician Assistant ==

== ENCOUNTER 2023-08-04 10:42 | Outpatient (REF) | payer OTHER, SELFPAY ==
--- NOTE | ~2023-08-04 | XR_ITS ---
EXAMINATION: XR SHOULDER, LEFT CLINICAL INFORMATION: Pain in unspecified shoulder COMPARISON: Right shoulder 07/15/2022 TECHNIQUE: AP , Grashey and and axillary views of the left shoulder. FINDINGS: The bones and soft tissues are normal. No fracture. Glenohumeral and acromioclavicular alignment is anatomic with glenohumeral normal joint space. Mild degenerative change of the acromioclavicular joint. No abnormal soft tissue calcifications. XR/XR shoulder LT min 2V IMPRESSION: Mild degenerative change of the acromioclavicular joint.
== END 2023-08-04 10:43 | disposition home or self-care (01) ==
LOC: HO.HOSX 10:42
PROVIDERS: Visit Provider Physician Assistant
DX: M75.102 Unspecified rotator cuff tear or rupture of left shoulder, not specified as traumatic (principal)
CPT/HCPCS: 20610; 73030; J1040

== ENCOUNTER 2023-08-04 11:27 | Outpatient (AMB) | payer OTHER, SELFPAY ==
[2023-08-04 11:31] VITALS: BMI 27.8
--- NOTE | 2023-08-04 11:31 | A.OFFVIS_ITS ---
Intake Vital Signs 08/04/23 11:31 Height 5 ft 2 in Weight 152 lb BMI 27.8 Handedness Right Intake Visit Reasons: OV-Right RTC Repair 11/16/22 Intake Note: Eboni is a 57 year old right hand dominant female who presents today for a evaluation for her left shoulder pain. Patient reports still having some discomfort on her left shoulder and would like to have an injection. Allergies amoxicillin [AMOXICILLIN] Allergy (Mild, Verified 08/04/23 11:46) RASH Penicillins Allergy (Verified 08/04/23 11:46) Rash HPI OV-Right RTC Repair 11/16/22 HPI Details 57-year-old female who presents in the [facility] today for an evaluation of left shoulder pain. The patient reports continued discomfort. She states she would like a cortisone injection. She is 9 months status post right rotator cuff repair, which was performed on 11/16/[address] Palomino. [facility] Medical History Anxiety Chronic recurrent major depressive disorder Depression Hyperlipidemia, unspecified Insomnia Migraine Overweight (BMI 25.0-29.9) Rosacea Unspecified hemorrhoids Vitamin D deficiency Surgical History H/O colonoscopy (~06/2018) H/O tubal ligation Hx laparoscopic cholecystectomy S/P rotator cuff repair (~11/16/22) Family History Father CVD (cardiovascular disease) Diabetes mellitus HTN (hypertension) Mother Diabetes mellitus HTN (hypertension) Social History Housing: House Alcohol intake: former Patient Tobacco Use Status: Never used Tobacco Second Hand Smoke Exposure: No service: No Current occupational status: employed 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 Cognitive needs: No Hearing needs: No Vision needs: Yes Review of Systems Const All systems reviewed & are unremarkable except as noted in HPI and below Physical Exam Vital Signs: BMI result Body Mass Index 27.8 Const General: cooperative, healthy appearing and no acute distress Resp Effort & Inspection: normal respiratory effort and able to speak in complete sen tences Cardio Rate: regular rate Peripheral pulses: Peripheral pulses 2+ throughout GI Palpation (GI): Soft to palpation Skin Lesions: no lesions Rashes: no rashes Extrem Other: Left shoulder: Normal to inspection. No ecchymosis, erythema, or edema. Full shoulder ROM in all planes. Negative cross-body reach. 3/5 strength with empty can. Negative drop arm. NVI. Office Procedures Joint Injection/Drain Joint Injection/Drain Primary Site: left shoulder Prep: site was prepped using aseptic technique, ethochloride spray was applied and injection warnings given Injected: 80 mg of, DepoMedrol, with 8 mL of (2% plain lido ) and in the subcromial space Approach Used: posterolateral Procedure: The patient tolerated the procedure well, but had some pain with the injection and there was some relief with the local anesthesia Coding 05434 - Large joint Procedure code (CPT) selection complete Results Reviewed Results Reviewed: 08/04/23 11:51 Lidocaine HCl 2 % MPF [Xylocaine 2 % MPF] 5 ml .ROUTE .STK-MED ONE methylPREDNISolone acetate [DEPO-MedroL] 80 mg .ROUTE .STK-MED ONE Assessment & Plan Assessment & Plan (1) Painful arc syndrome of left shoulder: Code(s): M75.102 - Unspecified rotator cuff tear or rupture of left shoulder, not specified as traumatic Plan Ms. Cobian is a 57-year-old female who presents in the office today for an evaluation of left shoulder pain. The patient reports continued discomfort. She states she would like a cortisone injection. She is 9 months status post right rotator cuff repair, which was performed on 11/16/[address] Palomino. The patient was offered a cortisone injection in the left shoulder with 80 mg of DepoMedrol. The patient was explained the risk, benefits, and alternatives to receiving this injection. After receiving consent for the injection, the patient had the procedure done while in office today. The patient tolerated the procedure well with no complications. Follow up will be PRN, or sooner if needed. X-rays of the left shoulder which were obtained while in the office today and were reviewed by me, Mary Richey PA-C, revealed no acute fractures or dislocation. Orders: Orders XR shoulder LT min 2V Today M25.519 - Pain in unspecified shoulder Patient Instructions: Scribed for Mary Richey PA-C by Dominique Rodeen, medical lab assistant, on 08/04/2023 at 11:45 am, EST. Coding Level of Care Code Est Pt Level 3 (45827) Diagnoses Painful arc syndrome of left shoulder M75.102 CPT Codes Coding - 98081 Large joint: 22396 - Large joint ([id number])
== END 2023-08-04 12:15 | disposition home or self-care (01) ==
PROVIDERS: PCP Internal Medicine; Visit Provider Physician Assistant
DX: M75.102 Unspecified rotator cuff tear or rupture of left shoulder, not specified as traumatic (principal)
CPT/HCPCS: 20610; 99213

== ENCOUNTER 2023-09-08 06:38 | Outpatient (REF) | payer OTHER, SELFPAY ==
[2023-09-08 06:50] LABS: MANUAL DIFF FLAG NO
[2023-09-08 07:27] LABS: Basophils Percent Auto 0.8 % (0-2); Eosinophils Absolute Auto 0.5 X10*3/uL (0.0-0.4); Eosinophils Percent Auto 9.9 % (0-4); Hemoglobin 14.5 g/dl (12.0-16.0); Imm Gran Abs Auto 0.02 X10*3/uL (0.00-0.03); Imm Gran Pct Auto 0.4 % (0.0-0.4); Lymphocytes Absolute Auto 2.3 X10*3/uL (1.2-4.9); Lymphocytes Percent Auto 47.9 % (20-40); Mean Corpuscular HGB Conc 32.2 g/dl (31.0-35.0); Mean Platelet Volume 10.5 fL (9.4-12.3); Monocytes Absolute Auto 0.4 X10*3/uL (0.1-1.2); Monocytes Percent Auto 7.4 % (2-11); Neutrophils Absolute Auto 1.6 x10*3/uL (2.0-8.3); Neutrophils Percent Auto 33.6 % (45-73); Platelet Count 265 X10*3/uL (160-400); Red Blood Count 5.17 X10*6/uL (4.20-5.50); Red Cell Distribution Width 13.4 % (11.0-16.0); White Blood Count 4.8 X10*3/uL (4.8-10.8)
[2023-09-08 07:56] LABS: Alanine Aminotransferase 16 U/L (0-31); Albumin Level 4.5 g/dL (3.5-5.0); Alkaline Phosphatase 94 U/L (39-117); Anion Gap 13 (12-20); Aspartate Amino Transferase 21 U/L (5-31); Bilirubin Total 0.5 mg/dL (0.0-1.0); Blood Urea Nitrogen 15 mg/dL (9-16); Calcium 9.9 mg/dL (8.4-10.2); Carbon Dioxide 25 mmol/L (22-29); Chloride 105 mmol/L (96-108); Cholesterol 263 mg/dL (<200); Estimated Glomerular Filt Rate > 60; Glucose Fasting 83 mg/dL (60-99); HDL Cholesterol 130 mg/dL (>40); LDL Cholesterol Calculated 122 mg/dL (<100); Potassium 4.4 mmol/L (3.3-5.1); Sodium 139 mmol/L (135-145); Total Protein 7.6 g/dL (6.5-8.0); Triglycerides 59 mg/dL (<150)
[2023-09-08 08:23] LABS: TSH reflex Free T4 1.07 uIU/mL (0.32-4.0); Vitamin D 25-OH Total 38.7 ng/mL (>30)
== END 2023-09-08 06:39 | disposition home or self-care (01) ==
LOC: HO.LAB 06:38
PROVIDERS: PCP Internal Medicine; Visit Provider Internal Medicine
DX: Z00.00 Encounter for general adult medical examination without abnormal findings (principal); E55.9 Vitamin D deficiency, unspecified; E78.00 Pure hypercholesterolemia, unspecified; R30.0 Dysuria
CPT/HCPCS: 36415; 80053; 80061; 82306; 84443; 85025

== ENCOUNTER 2023-09-22 07:34 | Outpatient (REF) | payer OTHER, SELFPAY | END 2023-09-22 07:35 | disposition home or self-care (01) | LOC: HO.MAMMO 07:34 | PROVIDERS: PCP Internal Medicine; Visit Provider Internal Medicine | DX: Z12.31 Encounter for screening mammogram for malignant neoplasm of breast (principal) | CPT/HCPCS: 77063; 77067 ==

== ENCOUNTER → 2023-09-22 07:45 | Outpatient (BNV) | payer OTHER, SELFPAY | PROVIDERS: PCP Internal Medicine; Visit Provider Radiology Diagnostic Radiology | DX: Z12.31 Encounter for screening mammogram for malignant neoplasm of breast (principal) | CPT/HCPCS: 77063; 77067 ==

== ENCOUNTER 2023-09-22 08:34 | Outpatient (AMB) | payer OTHER, SELFPAY ==
[2023-09-22 08:35] VITALS: BP 122/78; PULSE 79; O2SAT 97; BMI 27.9
--- NOTE | 2023-09-22 08:35 | A.OFFPC_ITS ---
Vital Signs 09/22/23 08:35 Height 5 ft 2 in Weight 152 lb 6 oz BMI 27.9 BP 122/78 Blood Pressure Location Lt brachial Position Sitting Pulse 79 Pulse Source Pulse Oximeter Pulse Oximetry (%) 97 Oxygen Delivery Method Room Air Intake Visit Reasons: physical Commercial Or Institutional Cleaner Required: No Accompanied by: Self / Same As Patient Allergies amoxicillin [AMOXICILLIN] Allergy (Mild, Verified 09/22/23 09:16) RASH Penicillins Allergy (Verified 09/22/23 09:16) Rash Medication List - Last Reconciled 09/22/23 by North Reynolds MD cholecalciferol (vitamin D3) 50 mcg PO DAILY lorazepam 0.5 mg (1/2 x 1 mg) PO BID PRN Tobacco use date assessed: 09/22/23 Dental Screening Dental Screen Date: 09/22/23 Did you have a dental visit in the last 12 months?: Yes Did you have a dental problem in the last 6 months where you did not have access to dental care?: No Was dental information given to patient?: Patient has dentist HPI physical HPI Details Patient comes in today for her annual physical examination States that she feels okay She denies any headaches or dizziness Denies any chest pains, no SOB No nausea/vomiting, no abdominal pain No change in bowel habits noted Denies any acute urinary symptoms Had her follow up labs done a couple of weeks ago - to discuss her results Patient just had her annual mammogram done earlier today She is due for repeat mammogram and is scheduled to see GI next month for initial intake Last pap smear was done in 2019; she has never had an abnormal pap smear in the past and we can schedule this for next year She is also now due for osteoporosis screening as it is now over 5 years since she last had her menstrual period COUNTS INCLUDE 234 BEDS AT THE [facility] Medical History Overweight (BMI 25.0-29.9) Depression Insomnia Rosacea Vitamin D deficiency Chronic recurrent major depressive disorder Unspecified hemorrhoids Anxiety Hyperlipidemia, unspecified Migraine Surgical History S/P rotator cuff repair (~11/16/22) Hx laparoscopic cholecystectomy H/O colonoscopy (~06/2018) H/O tubal ligation Family History Father CVD (cardiovascular disease) Diabetes mellitus HTN (hypertension) Mother Diabetes mellitus HTN (hypertension) Social History Housing: House Alcohol intake: former Patient Tobacco Use Status: Never used Tobacco Second Hand Smoke Exposure: No service: No Current occupational status: employed 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 Cognitive needs: No Hearing needs: No Vision needs: Yes Questionnaire PHQ-9 Over the last 2 weeks, how often have you been bothered by any of the following problems? 1. Little interest or pleasure in doing things: not at all 2. Feeling down, depressed, or hopeless: not at all 3. Trouble falling or staying asleep, or sleeping too much: not at all 4. Feeling tired or having little energy: not at all 5. Poor appetite or overeating: not at all 6. Feeling bad about yourself - or that you are a failure or have let yourself or your family down: not at all 7. Trouble concentrating on things, such as reading the newspaper or watching television: not at all 8. Moving or speaking so slowly that other people could have noticed. Or the opposite - being so fidgety or restless that you have been moving around a lot more than usual: not at all 9. Thoughts that you would be better off or of hurting yourself in some way: not at all Total score: 0 Depression Screening Interpretation: Negative Depression Screening Done: Yes 29249 - PHQ-9 Billing: Yes Source: Developed by Drs. Alexander Shipley, Ceci Bob, Marvel Marrero and colleagues, with an educational amarjit from [employer]. Thrive Questionnaire Date Thrive assessed: 09/22/23 I am a: Patient What is your living situation today?: I have a steady place to live Within the past 12 months, did the food you bought not last and you didn't have the money to get more?: Never true Within the past 12 months, did you worry whether your food would run out before you got money to buy more?: Never true Do you have trouble paying for medicines?: No Do you have trouble getting transportation to medical appointments?: No Do you have trouble paying your heating and electricity bill?: No Do you have trouble taking care of your child, family member or friend?: No Do you have trouble with day-to-day activities such as bathing, preparing meals, shopping, managing finances, etc.?: No Are you currently unemployed and looking for a job?: No Are you interested in more education?: No Please select the resources that you would like help with: None Currently or been in a relationship where the following occur: no concerns reported AUDIT C Alcohol Use Questionnaire (AUDIT-C) 1. How often do you have a drink containing alcohol?: Never 3. How often do you have six or more drinks on one occasion?: Never Total Score: 0 Score Reviewed/Action Taken: Yes CASSANDRA-7 AMB Questionnaire CASSANDRA-7 Date CASSANDRA - 7 assessed: 09/22/23 Feeling nervous, anxious, or on edge: 2 = More than half the days Not being able to stop or control worryin = More than half the days Worrying too much about different things: 0 = Not at all Trouble relaxin = Not at all Being so restless that it is hard to sit still: 0 = Not at all Becoming easily annoyed or irritable: 0 = Not at all Feeling afraid as if something awful might happen: 0 = Not at all Total CASSANDRA-7 score (0-4 normal; 5-9 mild; 10-14 moderate; 15-21 severe): 4 Source: Developed by Drs. Alexander Shipley, Ceci Bob, Marvel Marrero and colleagues, with an educational amarjit from [employer]. Review of Systems Const Denies chills, Denies fatigue, Denies fever(s), Denies headache(s) and Denies malaise Eyes Denies blurry vision, Denies change in vision, Denies irritation and Denies itchy eyes ENT Denies dysphagia, Denies dizziness, Denies otalgia, Denies headache(s), Denies nasal congestion, Denies neck pain, Denies odynophagia, Denies sinus pain and Denies sore throat Card Denies chest pain, Denies rapid heart rate, Denies irregular heart rhythm, Denies palpitations and Denies dyspnea Resp Denies chest congestion, Denies cough, Denies dyspnea and Denies wheezing GI Denies abdominal pain, Denies bloating, Denies constipation, Denies dysphagia, Denies heartburn, Denies diarrhea, Denies nausea, Denies odynophagia and Denies vomiting Denies hematuria, Denies urinary frequency, Denies dysuria, Denies urinary incontinence and Denies urinary urgency Musc Denies back pain, Denies arthralgias, Denies joint swelling, Denies muscle weakness and Denies neck pain Skin/Breast Denies breast pain, Denies breast mass, Denies change in pigmentation, Denies lesions, Denies rash and Denies unusual bruising Neuro Denies dizziness, Denies headache(s) and Denies paresthesias Psych Denies anxiety and Denies depression Endo Denies fatigue and Denies palpitations William/Lymph Denies easy bruising Aller/Immun Denies itchy eyes and Denies wheezing Physical exam (Primary Care) Vital Signs: Last Vital Signs Pulse 79 09/22/23 08:35 BP 122/78 09/22/23 08:35 Pulse Ox 97 09/22/23 08:35 Oxygen Delivery Method Room Air 09/22/23 08:35 BMI result Body Mass Index 27.9 Tobacco/Smoking Status: Tobacco use Status Tobacco use date assessed 09/22/23 09/22/23 08:39 Patient Tobacco Use Status Never used Tobacco 09/22/23 08:39 PHQ-9: PHQ-9 Score PHQ-9: Total score 0 09/22/23 08:39 Depression Screening Interpretation: Negative Thrive Assessment: Date of Thrive Assessment Date Thrive assessed 09/22/23 09/22/23 08:47 Currently or been in a relationship where the following occur: no concerns reported Const General: no acute distress, alert and awake Orientation/consciousness: patient oriented x3 HENMT Head: Yes normocephalic and Yes atraumatic Ears: external ears normal, TM's normal bilaterally and EAC's normal General nose exam: No nasal discharge present Face and sinus: Yes normal facial exam and Yes sinuses nontender Teeth and gingiva: dentition normal Throat: Yes posterior oropharynx normal and Yes tonsils normal (no TP congestion) Eyes Eyelids: Yes eyelids normal Conjunctivae: conjunctivae normal Pupils: Equal, round and reactive pupils present EOM: EOMs intact bilaterally Neck Neck: Yes no lymphadenopathy and Yes supple Thyroid: Thyroid normal Resp Auscultation: clear to auscultation bilaterally, no rales and no wheezes Cardio Rate: regular rate Rhythm: regular rhythm Heart sounds: no murmurs GI Palpation (GI): Soft to palpation, nontender and No hepatosplenomegaly present Auscultation: normal bowel sounds General: Yes no CVA tenderness Back/Spine/Pelvis Back: no CVA tenderness Thoracic/Lumbar Spine: thoracic and lumbar spine normal to inspection Skin Lesions: no lesions Rashes: no rashes Neuro General: patient oriented x3, moves all extremities, no focal motor deficits and CN's II-XI intact bilaterally Cranial nerves: Yes Equal, round and reactive pupils present Cognition (Neuro): normal cognition Gait exam (Neuro): Normal gait present Extrem General: Yes no clubbing, cyanosis or edema Results Reviewed Results Reviewed: Laboratory Tests 09/08/23 06:48 WBC 4.8 Hgb 14.5 Hct 45.0 Plt Count 265 Sodium 139 Potassium 4.4 Creatinine 0.71 Estimated GFR > 60 Fasting Glucose 83 Calcium 9.9 AST 21 ALT 16 Triglycerides 59 Cholesterol 263 H LDL Cholesterol, Calc 122 H HDL Cholesterol 130 25-OH Vitamin D Total 38.7 TSH 1.07 Assessment and Plan Assessment & Plan (1) Annual physical exam: Code(s): Z00.00 - Encounter for general adult medical examination without abnormal findings Plan: Results of her labs done a couple of weeks ago reviewed and discussed with patient She just had her mammogram done earlier this morning Is scheduled to see GI next month for intake and will then have her repeat colonoscopy scheduled Will have her pap smear done next year with her next annual physical exam BMD will be ordered - this will be her index screen (2) Pure hypercholesterolemia: Code(s): E78.00 - Pure hypercholesterolemia, unspecified Plan: Advised that her HDL cholesterol remains very high but as this is beneficial to her, no further intervention is needed other than diet modification to help lower her LDL cholesterol Reinforced low cholesterol diet Will recheck her fasting lipids in 6 months for follow up (3) Migraine: Code(s): G43.909 - Migraine, unspecified, not intractable, without status migrainosus Qualifiers: Migraine type: unspecified Status migrainosus presence: without status migrainosus Intractability: not intractable Qualified Code(s): G43.909 - Migraine, unspecified, not intractable, without status migrainosus Plan: Stable Was taking Meloxicam 15 mg QD PRN in the past but she is currently now back on Ibuprofen 800 mg TID for her shoulder pain; advised that this should also help with her headaches if they occur but patient states that she has NOT had any increased headaches in a while (4) Vitamin D deficiency: Code(s): E55.9 - Vitamin D deficiency, unspecified Plan: Corrected - continue OTC Vitamin D3 2000 units QD (5) Rotator cuff tear arthropathy of right shoulder: Comment: Right rotator cuff repair 11/16/2022 [place] Code(s): M75.101 - Unspecified rotator cuff tear or rupture of right shoulder, not specified as traumatic; M12.811 - Other specific arthropathies, not elsewhere classified, right shoulder Plan: S/P right rotator cuff surgery with Dr. Palomino in October 2022 States that her right shoulder symptoms have improved with physical therapy but still flare up on and off Follow up with orthopedics as scheduled (6) Rosacea: Code(s): L71.9 - Rosacea, unspecified Plan: Follow up with dermatology as scheduled/as needed (7) Insomnia: Code(s): G47.00 - Insomnia, unspecified Qualifiers: Insomnia type: unspecified Qualified Code(s): G47.00 - Insomnia, unspecified Plan: Sleep hygiene reinforced States that Lorazepam helps when needed Advised again that she can also try taking OTC Melatonin either 3 mg or 6 mg Q HS PRN if she wants to (8) Anxiety: Code(s): F41.9 - Anxiety disorder, unspecified Plan: Continue Lorazepam 0.5 mg BID PRN (9) Depression: Comment: hx of, not current Code(s): F32.A - Depression, unspecified Qualifiers: Depression Type: major depressive disorder Major depression recurrence: recurrent Active/Remission status: currently active Major depression episode severity: unspecified Qualified Code(s): F33.9 - Major depressive disorder, recurrent, unspecified Plan: Stable - states that exercising regularly helps her manage her depression Has declined offer for Rx in the past and continues to decline - prefers not to take any more Rx as much as possible (10) Overweight (BMI 25.0-29.9): Code(s): E66.3 - Overweight Plan: Reinforced diet/exercise as tolerated/lose weight (11) Osteoporosis screening: Code(s): Z13.820 - Encounter for screening for osteoporosis Plan: Will send patient for BMD for osteoporosis screening - this will be her index screen Plan Follow up in 6 months Orders: Orders XR DEXA axial skeleton Today Z78.0 - Asymptomatic menopausal state Comprehensive [place]. Panel Fast 6 Months E78.00 - Pure hypercholesterolemia, unspecified UA CC w/rflx Micro + Cult 6 Months R30.0 - Dysuria Lipid Panel 6 Months E78.00 - Pure hypercholesterolemia, unspecified Coding Level of Care Code Est Pt Prev Care 40-64y(27980) Diagnoses Annual physical exam Z00.00 Pure hypercholesterolemia E78.00 Migraine without status migrainosus, not intractable, unspecified migraine type G43.909 Migraine type: unspecified Status migrainosus presence: without status migrainosus Intractability: not intractable Vitamin D deficiency E55.9 Rotator cuff tear arthropathy of right shoulder M75.101; M12.811 Rosacea L71.9 Insomnia, unspecified type G47.00 Insomnia type: unspecified Anxiety F41.9 Episode of recurrent major depressive disorder, unspecified depression episode severity F33.9 Depression Type: major depressive disorder Major depression recurrence: recurrent Active/Remission status: currently active Major depression episode severity: unspecified Overweight (BMI 25.0-29.9) E66.3 Osteoporosis screening Z13.820
== END 2023-09-22 09:43 | disposition home or self-care (01) ==
PROVIDERS: Visit Provider Internal Medicine
DX: Z00.00 Encounter for general adult medical examination without abnormal findings (principal); E78.00 Pure hypercholesterolemia, unspecified; G43.909 Migraine, unspecified, not intractable, without status migrainosus; F33.9 Major depressive disorder, recurrent, unspecified; E55.9 Vitamin D deficiency, unspecified; M75.101 Unspecified rotator cuff tear or rupture of right shoulder, not specified as traumatic; M12.811 Other specific arthropathies, not elsewhere classified, right shoulder; L71.9 Rosacea, unspecified; G47.00 Insomnia, unspecified; F41.9 Anxiety disorder, unspecified; E66.3 Overweight; Z13.820 Encounter for screening for osteoporosis
CPT/HCPCS: 99396

== ENCOUNTER 2023-10-06 10:58 | Outpatient (AMB) | payer OTHER, SELFPAY ==
--- NOTE | 2023-10-06 11:30 | MHC.OFFVIS ---
Intake Intake Visit Reasons: Newprob-Right knee pain Intake Note: Eboni is a 57 year old female who presents today for a evaluation of her right knee pain. Patient reports off and on pain for a month, also having some swelling. No hx of injections. Hx of 3 + months talking ibuprofen with no relief. She is interested in getting an injection. Allergies amoxicillin [AMOXICILLIN] Allergy (Mild, Verified 10/06/23 11:33) RASH Penicillins Allergy (Verified 10/06/23 11:33) Rash HPI Newprob-Right knee pain HPI Details 57-year-old female who presents in the office today for an evaluation of right knee pain. The patient reports intermittent pain for a month. She also reports some edema in the right knee. She confirms taking ibuprofen for 3+ months with no relief. She denies a history of cortisone injections. She is interested in getting a cortisone injection while in the office today. [facility] Medical History Overweight (BMI 25.0-29.9) Depression Insomnia Rosacea Vitamin D deficiency Chronic recurrent major depressive disorder Unspecified hemorrhoids Anxiety Hyperlipidemia, unspecified Migraine Surgical History S/P rotator cuff repair (~11/16/22) Hx laparoscopic cholecystectomy H/O colonoscopy (~06/2018) H/O tubal ligation Family History Father CVD (cardiovascular disease) Diabetes mellitus HTN (hypertension) Mother Diabetes mellitus HTN (hypertension) Social History Housing: House Alcohol intake: former Patient Tobacco Use Status: Never used Tobacco Second Hand Smoke Exposure: No service: No Current occupational status: employed 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 Cognitive needs: No Hearing needs: No Vision needs: Yes Review of Systems Const All systems reviewed & are unremarkable except as noted in HPI and below Physical Exam Const General: cooperative, healthy appearing and no acute distress Resp Effort & Inspection: normal respiratory effort and able to speak in complete sentences Cardio Rate: regular rate Peripheral pulses: Peripheral pulses 2+ throughout GI Palpation (GI): Soft to palpation Skin Lesions: no lesions Rashes: no rashes Extrem Other: Right knee: Normal to inspection. No ecchymosis, erythema, or joint effusion. No tenderness to palpation to the lateral joint line. Tenderness to palpation to the medial joint line Full knee extension and flexion. Negative Micah's. NVI. Office Procedures Joint Injection/Drain Joint Injection/Drain Primary Site: right knee Prep: site was prepped using aseptic technique, ethochloride spray was applied and injection warnings given Injected: 80 mg of, DepoMedrol, with 8 mL of (2% plain lido ) and in the joint Procedure: The patient tolerated the procedure well, but had some pain with the injection and there was some relief with the local anesthesia Coding 69978 - Large joint Procedure code (CPT) selection complete Assessment & Plan Assessment & Plan (1) Internal derangement of right knee: Code(s): M23.91 - Unspecified internal derangement of right knee Plan Ms. Cobian is a 57-year-old female who presents in the office today for an evaluation of right knee pain. The patient reports intermittent pain for a month. She also reports some edema in the right knee. She confirms taking ibuprofen for 3+ months with no relief. She denies a history of cortisone injections. She is interested in getting a cortisone injection while in the office today. The patient was offered a cortisone injection in the right knee with 80 mg of DepoMedrol. The patient was explained the risk, benefits, and alternatives to receiving this injection. After receiving consent for the injection, the patient had the procedure done while in office today. The patient tolerated the procedure well with no complications. Follow up will be PRN, or sooner if needed. X-rays of the right knee which were obtained while in the office today and were reviewed by me, Mary iRchey PA-C, revealed no acute fracture or dislocation. Orders: Orders XR knee standing BI Today M25.569 - Pain in unspecified knee XR knee RT 2V Today M25.569 - Pain in unspecified knee Patient Instructions: Scribed for Mary Richey PA-C by Dominique Caballero medical territory manager, on 10/06/2023 at 11:03 am, EST. Coding Level of Care Code Est Pt Level 4 (15921) Diagnoses Internal derangement of right knee M23.91 CPT Codes Coding - 32545 Large joint: 58119 - Large joint ([id number])
== END 2023-10-06 12:16 | disposition home or self-care (01) ==
PROVIDERS: PCP Internal Medicine; Visit Provider Physician Assistant
DX: M23.91 Unspecified internal derangement of right knee (principal)
CPT/HCPCS: 20610; 99213

== ENCOUNTER 2023-10-06 11:08 | Outpatient (REF) | payer OTHER, SELFPAY ==
--- NOTE | ~2023-10-06 | XR_ITS ---
EXAMINATION: XR KNEE, RIGHT XR KNEE AP STANDING CLINICAL INFORMATION: Pain. COMPARISON: Radiographs dated 01/01/2011. TECHNIQUE: Lateral and axial views of the right knee were obtained. AP bilateral standing view of the knees was obtained. FINDINGS: Bony alignment and mineralization are normal. The bilateral lateral and medial joint space compartments and the right patellofemoral compartment are well-maintained. No fracture, dislocation or effusion is seen. There is no varus or valgus configuration. No foreign body is noted. XR/XR knee RT 3V IMPRESSION: Unremarkable AP bilateral knees and right knee radiographs.
--- NOTE | ~2023-10-06 | XR_ITS ---
EXAMINATION: XR KNEE, RIGHT XR KNEE AP STANDING CLINICAL INFORMATION: Pain. COMPARISON: Radiographs dated 01/01/2011. TECHNIQUE: Lateral and axial views of the right knee were obtained. AP bilateral standing view of the knees was obtained. FINDINGS: Bony alignment and mineralization are normal. The bilateral lateral and medial joint space compartments and the right patellofemoral compartment are well-maintained. No fracture, dislocation or effusion is seen. There is no varus or valgus configuration. No foreign body is noted. XR/XR knee standing BI IMPRESSION: Unremarkable AP bilateral knees and right knee radiographs.
== END 2023-10-06 11:09 | disposition home or self-care (01) ==
LOC: HO.HOSX 11:08
PROVIDERS: Visit Provider Physician Assistant
DX: M23.91 Unspecified internal derangement of right knee (principal)
CPT/HCPCS: 20610; 73562; 73564; 73565; J1040

== ENCOUNTER 2023-10-20 10:35 | Outpatient (REF) | payer OTHER, SELFPAY ==
--- NOTE | ~2023-10-20 | MM_ITS ---
EXAMINATION: BONE DENSITOMETRY CLINICAL INDICATION: Asymptomatic menopausal state. COMPARISON: This is the patient's baseline examination. TECHNIQUE: Using a [employer] DXA System (software version: 13.1) manufactured by [employer], dual-energy x-ray absorptiometry was performed of the lumbar spine and left hip. The images are of good technical quality. Summary results are attached. FINDINGS: LEFT FEMUR, NECK: BMD 0.957 g/cm2, Z-score 0.4, T-score -0.6, normal. LEFT FEMUR, TOTAL: BMD 0.999 g/cm2, Z-score 0.5, T-score -0.1, normal. AP SPINE L1-L4: BMD 0.851 g/cm2, Z-score -2.1, T-score -2.7, osteoporosis. IDENTIFIED RISK FACTORS: Hysterectomy, menopause. HISTORY OF FRACTURE: None listed. MEDICATIONS: Vitamin D. MM/XR DEXA axial skeleton IMPRESSION: 1. DIAGNOSIS: Osteoporosis based on the lowest T-score value of -2.7 in the lumbar spine applying World Health Organization criteria. 2. 10-YEAR FRACTURE RISK PREDICTION, FRAX: According to the guidelines, FRAX calculation should only be performed on patients in the osteopenia bone density category. Therefore, FRAX was not performed on this patient. 3. Treatment Recommendations: NOF guidelines recommend consideration for treatment in postmenopausal women and men age 50 and older presenting with the following: -A hip or vertebral (clinical or morphometric) fracture. -T-score less than or equal to -2.5 at the femoral neck or spine after appropriate evaluation to exclude secondary causes. -Low bone mass at the hip or spine and a 10-year fracture probability by FRAX of greater than or equal to 3% for hip fracture or greater than or equal to 20% for major osteoporotic fracture based on the [place] adapted WHO algorithm. 4. Other Recommendations: All treatment decisions require clinical judgment and consideration of individual patient factors, including patient preferences, comorbidities, previous drug use, risk factors not captured in the FRAX model (e.g. frailty, falls, vitamin D deficiency, increased bone turnover, interval significant decline in bone density) and possible under or overestimation of fracture risk by FRAX. Additional medical evaluation for secondary cause of low bone mineral density may be appropriate. FUTURE SCAN RECOMMENDATION: People with diagnosed cases of osteoporosis or at high risk for fracture should have regular bone mineral density tests. For patients eligible for Medicare, routine testing is allowed once every 2 years. The testing frequency can be increased to one year for patients who have rapidly progressing disease, those who are receiving or discontinuing medical therapy to restore bone mass, or have additional risk factors.
== END 2023-10-20 10:36 | disposition home or self-care (01) ==
LOC: HO.MAMMO 10:35
PROVIDERS: PCP Internal Medicine; Visit Provider Internal Medicine
DX: Z13.820 Encounter for screening for osteoporosis (principal); Z78.0 Asymptomatic menopausal state
CPT/HCPCS: 77080

== ENCOUNTER 2023-10-24 07:55 | Outpatient (AMB) | payer OTHER, SELFPAY ==
--- NOTE | 2023-10-24 08:25 | MHC.OFFVIS ---
Intake Vital Signs 10/24/23 08:26 Height 5 ft 3 in Weight 152 lb BMI 26.9 BP 125/65 Blood Pressure Location Lt brachial Position Sitting Pulse 78 Intake Visit Reasons: Colonoscopy Screening Intake Note: Patient 2nd pre colonoscopy screening. Patient cc: hemorrhoids on and off, denies any other GI issues. 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 female here today for pre colonoscopy screening.? Patient was sent to us by her PCP.? Patient had her 1st colonoscopy in 2018 tubular adenoma found in transverse colon.? Patient denies any gastrointestinal symptoms in the past or at present.? Denies family history of gastrointestinal disease, colon polyps, or cancer.? Denies history of difficulty with sedation or anesthesia in the past.? Negative for history of sleep apnea.? Denies any history of cardiac, renal, pulmonary, or hepatic disease.?? No history of infectious? diseases like hepatitis A, B, C, HIV or tuberculosis.? Patient is not on any anticoagulation therapy. [facility] Medical History Overweight (BMI 25.0-29.9) Depression Insomnia Rosacea Vitamin D deficiency Chronic recurrent major depressive disorder Unspecified hemorrhoids Anxiety Hyperlipidemia, unspecified Migraine Surgical History S/P rotator cuff repair (~11/16/22) Hx laparoscopic cholecystectomy H/O colonoscopy (~06/2018) H/O tubal ligation Family History Father CVD (cardiovascular disease) Diabetes mellitus HTN (hypertension) Mother Diabetes mellitus HTN (hypertension) Social History Housing: House Alcohol intake: former Patient Tobacco Use Status: Never used Tobacco Second Hand Smoke Exposure: No service: No Current occupational status: employed 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 Cognitive needs: No Hearing needs: No Vision needs: Yes Review of Systems Const Denies weight gain and Denies weight loss ENT Reports no additional complaints, Denies dysphagia and Denies odynophagia Card Reports no additional complaints Resp Reports no additional complaints GI Denies abdominal pain, Denies belching, Denies melena, Denies bloating, Denies change in bowel habits, Denies dysphagia, Denies excessive flatus, Denies dyspepsia, Denies heartburn, Denies diarrhea, Denies loose stools, Denies nausea, Denies odynophagia and Denies vomiting Musc Reports no additional complaints Neuro Reports no additional complaints Psych Reports no additional complaints Endo Reports no additional complaints Physical Exam Vital Signs: Last Vital Signs Pulse 78 10/24/23 08:26 BP 125/65 10/24/23 08:26 BMI result Body Mass Index 26.9 Const General: healthy appearing, no acute distress and well developed Nutritional Appearance: well nourished Orientation/consciousness: patient oriented x3 HEENT Head: Yes normal to inspection, Yes normocephalic and Yes atraumatic Face and sinus: Yes normal facial exam Mouth: Normal oral and palatal mucosa present Throat: Yes posterior oropharynx normal, Yes tonsils normal and Yes uvula midline Eyes General: appearance normal, both eyes and all related structures Neck Neck: Yes normal visual inspection, Yes full ROM and Yes trachea midline Thyroid: Thyroid normal Resp Effort & Inspection: normal respiratory effort, able to speak in complete sentences, no tracheal deviation and symmetric chest movement Auscultation: clear to auscultation bilaterally Cardio Rate: regular rate Heart sounds: S1 normal heart sound present and S2 normal heart sound present GI Inspection: Yes normal to inspection and No distended Palpation (GI): Soft to palpation, not firm, nontender and No hepatosplenomegaly present Auscultation: normal bowel sounds General: Yes no CVA tenderness Back/Spine/Pelvis Back: no CVA tenderness Skin General skin exam: elasticity normal, turgor normal and dry skin Neuro General: patient oriented x3 Psych Appearance: grossly normal Mental Status: mental status grossly normal Affect: normal affect Assessment & Plan Assessment & Plan (1) Screen for colon cancer: Code(s): Z12.11 - Encounter for screening for malignant neoplasm of colon Plan: Patient denies any GI, cardiac or respiratory symptoms.? Denies any issues with anesthesia in the past.? Denies any history of sleep apnea.? No history infectious diseases in the past or present.? Not on any anticoagulation therapy.? No family or personal history of colon cancer or polyps.? Patient denies melena, hematochezia, unintentional weight loss or ribbon like stools.? Discussed at length the pre-procedure,? prep, diet & medications as well as what to expect prior, during and after the procedure.?? Stressed the importance of good bowel prep. ?Recommended the use of Vaseline or Calmoseptine OTC & baby wipes with bowel movements to promote comfort.? ?Patient verbalizes understanding and agrees to plan of care.? She was given the opportunity to ask questions and all questions answered.? We will see her after the procedure.? Medications: New polyethylene glycol 3350 (Miralax) As directed by gastroenterology department at [facility] 238 grams PO ONCE 238 grams 0RF Z12.11 - Encounter for screening for malignant neoplasm of colon bisacodyl (Dulcolax (bisacodyl)) take 4 tabs at noon the day before your colonoscopy 20 mg (4 x 5 mg) PO ONCE 1 day 4 tabs 0RF Z12.11 - Encounter for screening for malignant neoplasm of colon bisacodyl (Dulcolax (bisacodyl)) take 4 tabs at noon the day before your colonoscopy 20 mg (4 x 5 mg) PO ONCE 1 day 4 tabs 0RF Z12.11 - Encounter for screening for malignant neoplasm of colon polyethylene glycol 3350 (Miralax) As directed by gastroenterology department at [facility] 238 grams PO ONCE 238 grams 0RF Z12.11 - Encounter for screening for malignant neoplasm of colon Coding Level of Care Code New Pt Level 3 (95343) Diagnoses Screen for colon cancer Z12.11 Time Spent (min) 40 Comment 30 minutes spent with patient and additional 10 minutes spent reviewing her records
[2023-10-24 08:26] VITALS: BP 125/65; PULSE 78; BMI 26.9
== END 2023-10-24 08:51 | disposition home or self-care (01) ==
PROVIDERS: PCP Internal Medicine; Visit Provider Nurse Practitioner Family
DX: Z12.11 Encounter for screening for malignant neoplasm of colon (principal); Z01.818 Encounter for other preprocedural examination
CPT/HCPCS: 99203

== ENCOUNTER → 2023-10-24 07:55 | Outpatient (BNVA) | payer OTHER, SELFPAY | PROVIDERS: PCP Internal Medicine; Visit Provider Nurse Practitioner Family ==

== ENCOUNTER 2024-01-16 09:06 | Day surgery (SDC) | payer OTHER, SELFPAY ==
--- NOTE | 2024-01-15 10:08 | HO.ANESPROP2 ---
Documented by User: Ingris Kwan NP 01/15/24 10:08 HPI - Anesthesia Eval Consult details Narrative: 58yo F for Colonoscopy PMFSH Active Problems Active Problems: All Active Problems (Updated 10/06/23 @ 11:43 by Dominique Caballero) Internal derangement of right knee (Acute) Osteoporosis screening (Acute) Painful arc syndrome of left shoulder (Acute) Stiffness of right hand joint (Acute) Hand pain, right (Acute) S/P rotator cuff repair (Acute ~11/16/22) Annual physical exam (Acute) Pure hypercholesterolemia (Acute) Frequent bowel movements (Acute) Fracture of finger of left hand (Acute) Closed fracture of tuft of distal phalanx of finger (Acute) Right shoulder pain (Acute) Painful arc syndrome of right shoulder (Acute) Cervical radiculopathy (Acute) Rotator cuff tear arthropathy of right shoulder (Acute) Overweight (BMI 25.0-29.9) (Acute) Depression (Acute) Anxiety (Acute) Insomnia (Acute) Rosacea (Acute) Vitamin D deficiency (Acute) Migraine (Acute) Past Medical History Medical History Overweight (BMI 25.0-29.9) Depression Insomnia Rosacea Vitamin D deficiency Chronic recurrent major depressive disorder Unspecified hemorrhoids Anxiety Hyperlipidemia, unspecified Migraine Family History Family History Father CVD (cardiovascular disease) Diabetes mellitus HTN (hypertension) Mother Diabetes mellitus HTN (hypertension) Family history of problems with anesthesia: No Surgical History Surgical History S/P rotator cuff repair (~11/16/22) Hx laparoscopic cholecystectomy H/O colonoscopy (~06/2018) H/O tubal ligation History of Problems with Anesthesia: No Social History Social History Housing: House Alcohol intake: former Patient Tobacco Use Status: Never used Tobacco Second Hand Smoke Exposure: No Use of substances other than those prescribed or required for medical reasons: No Are you DNR?: No Advance Directives: No Advance Directives Information Provided: Yes service: No Current occupational status: employed 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 Cognitive needs: No Hearing needs: No Vision needs: Yes Meds Allergies Allergy/AdvReac Type Severity Reaction Status Date / Time amoxicillin [AMOXICILLIN] Allergy Severe RASH Verified 01/16/24 09:44 Penicillins Allergy Severe Rash Verified 01/16/24 09:44 Home Medications Medication Instructions Recorded Confirmed Last Taken Type cholecalciferol (vitamin D3) 50 50 mcg PO DAILY 03/17/23 09/22/23 Unknown History mcg (2,000 unit) capsule Assessment and Plan Assessment Anesthesia Assessment: Chart Reviewed Final Anesthetic Review Family History of Problems with Anesthesia: No History of Problems with Anesthesia: No Documented by User: Maria Alejandra Spencer MD 01/16/24 10:13 [facility] Active Problems Active Problems: All Active Problems (Updated 01/16/24 @ 10:00 by Maria Alejandra Spencer MD) Internal derangement of right knee (Acute) Osteoporosis screening (Acute) Painful arc syndrome of left shoulder (Acute) Stiffness of right hand joint (Acute) Hand pain, right (Acute) S/P rotator cuff repair (Acute ~11/16/22) Annual physical exam (Acute) Pure hypercholesterolemia (Acute) Frequent bowel movements (Acute) Fracture of finger of left hand (Acute) Closed fracture of tuft of distal phalanx of finger (Acute) Right shoulder pain (Acute) Painful arc syndrome of right shoulder (Acute) Cervical radiculopathy (Acute) Rotator cuff tear arthropathy of right shoulder (Acute) Overweight (BMI 25.0-29.9) (Acute) Depression (Acute) Anxiety (Acute) Insomnia (Acute) Rosacea (Acute) Vitamin D deficiency (Acute) Migraine (Acute) Past Medical History Medical History Overweight (BMI 25.0-29.9) Depression Insomnia Rosacea Vitamin D deficiency Chronic recurrent major depressive disorder Unspecified hemorrhoids Anxiety Hyperlipidemia, unspecified Migraine Family History Family History Father CVD (cardiovascular disease) Diabetes mellitus HTN (hypertension) Mother Diabetes mellitus HTN (hypertension) Family history of problems with anesthesia: No Surgical History Surgical History S/P rotator cuff repair (~11/16/22) Hx laparoscopic cholecystectomy H/O colonoscopy (~06/2018) H/O tubal ligation History of Problems with Anesthesia: No Social History Social History Housing: House Alcohol intake: former Patient Tobacco Use Status: Never used Tobacco Second Hand Smoke Exposure: No Use of substances other than those prescribed or required for medical reasons: No Are you DNR?: No Advance Directives: No Advance Directives Information Provided: Yes service: No Current occupational status: employed 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 Cognitive needs: No Hearing needs: No Vision needs: Yes Meds Allergies Allergy/AdvReac Type Severity Reaction Status Date / Time amoxicillin [AMOXICILLIN] Allergy Severe RASH Verified 01/16/24 09:44 Penicillins Allergy Severe Rash Verified 01/16/24 09:44 Home Medications Medication Instructions Recorded Confirmed Last Taken Type cholecalciferol (vitamin D3) 50 50 mcg PO DAILY 03/17/23 09/22/23 Unknown History mcg (2,000 unit) capsule Exam Height,Weight and Vital Signs: Height 5 ft 2 in Weight 69.003 kg Vital Signs Temp Pulse Resp BP Pulse Ox O2 Del Method 01/16/24 09:54 98.4 F 81 16 130/85 97 Room Air Airway Mallampati Class: II TM Dist: >3cm (Small chin. TMD barely 3cm) Neck ROM: Full Loose/Missing/Broken Teeth: No (Denies broken, loose, missing teeth) Heart: RRR Lungs: CTAB Assessment and Plan Assessment Anesthesia Assessment: Anesthesia Plan Discussed and Chart Reviewed Final Anesthetic Review Family History of Problems with Anesthesia: No History of Problems with Anesthesia: No NPO: Yes ASA Class: II Final Preanesthetic Review: No Changes in Pt Med Stat, Meds/Allgs Chart Reviewed, Consent Obtained/Reviewed and Anes Risks/Benef Reviewed Patient Risk: Low Procedure Risk: Low Assessment/Block/Sedation in SS: Assess/Block/Sedation-SS Anesthetic Plan Anesthetic Plan: TIVA Disposition: Standard PACU
[2024-01-16 09:42] VITALS: BMI 27.8
[2024-01-16 09:54] VITALS: BP 130/85; PULSE 81; RESP 16; TEMP 36.9; O2SAT 97
--- NOTE | 2024-01-16 10:11 | P.HPSUR_ITS ---
Pre-Procedural Eval Section A - 24 Hr Update-Section A only Date of Service: 01/16/24 Section B - Complete if H&P > 30 days Chief Complaint: Encounter for screening for malignant neoplasm of Relevant Family History (Specify if Yes): No Relevant Social History: None Present Medications: see Short Stay Collaborative assessment Medical History: Significant History (Overweight (BMI 25.0-29.9) Depression In somnia Rosacea Vitamin D deficiency Chronic recurrent major depressive disorder Unspecified hemorrhoids Anxiety Hyperlipidemia, unspecified Migraine) History of Previous Operations: Relevant previous surgery/procedure and date(s) (S/P rotator cuff repair (~11/16/22) Hx laparoscopic cholecystectomy H/O colonoscopy (~06/2018) H/O tubal ligation) Allergies: Allergies Allergy/AdvReac Type Severity Reaction Status Date / Time amoxicillin [AMOXICILLIN] Allergy Severe RASH Verified 01/16/24 09:44 Penicillins Allergy Severe Rash Verified 01/16/24 09:44 Review of Systems Sugical H&P ROS: Negative: Constitution, Cardiovascular, Respiratory, Neurological, Psychiatric, Hem-Onc, Allergic/Immunologic, Gastrointestinal, Genitourinary, Musculoskeletal, Integumentary, Endocrine and Eyes/Ears/Nose/Throat Exam Surgical H&P Exam: Normal: HEENT, Normal: Heart, Normal: Lungs, Normal: Extremities, Normal: Abdomen, Normal: Skin and Normal: Neurological Plan Diagnosis/Plan: Unchanged I have reviewed the history and physical and performed a pertinent physical examination on my patient. No changes have occurred unless specified. Time Spent With Patient Time: Total time managing care of this patient today ____ minutes.
--- NOTE | 2024-01-16 10:12 | P.OP_ITS ---
Operative Note Operative Note Date of Service: 01/16/24 Narrative: Operative Information Procedure Description: Colonoscopy Indication: screening Anesthesia: MAC COLONOSCOPY Instrument: Olympus variable stiffness pediatric scope 190L Colonoscopy Monitoring: Vital signs and clinical assessment, continuous EKG monitoring, Pulse oximetry, Carbon Dioxide monitoring and blood pressure monitoring were done throughout the procedure. Colon withdrawal time was 10 minutes. Procedure: The patient was placed in the left lateral decubitis position and pre-procedure medications were administered. After a digital rectal examination of the ano-rectum, the video colonoscope was inserted into the rectum and advanced through the colon to the cecum/TI. The colonoscope was slowly withdrawn in a retrograde panoramic fashion and the colon mucosa was carefully examined including a retroflexed view of the rectum. Findings and interventions are described below. Procedure Difficulty: easy Findings: Terminal Ileum-normal Cecum:normal Right sided retroflexion- normal Ascending Colon: scattered diverticula seen Transverse Colon -normal Descending Colon: moderate diverticulosis Sigmoid Colon: moderate severe diverticulosis Rectum: Retroflexion with medium sized internal hemorrhoids, grade I, 5-7 mm sessile polyp removed with cold forceps Anorectum - normal Colon preparation: [place] Bowel Preparation Scale Right colon; 2 Transverse colon: 2 Left colon; 3 (0 = Unprepared colon segment with mucosa not seen due to solid stool that cannot be cleared. 1 = Portion of mucosa of the colon segment seen, but other areas of the colon segment not well seen due to staining, residual stool and/or opaque liquid. 2 = Minor amount of residual staining, small fragments of stool and/or opaque liquid, but mucosa of colon segment seen well. 3 = Entire mucosa of colon segment seen well with no residual staining, small fragments of stool or opaque liquid) Impression and Post Procedure Diagnosis: polyp internal hemorrhoids diverticular disease Plan: High fiber diet leaflet Avoid straining at stool, epsom salts and sitz bath, anusol supps or cream Repeat Colonoscopy in 5-7 years if adenomatous polyp, 10 yrs if hyperplastic or earlier if clinically indicated Above findings were reviewed with the patient and relevant handouts were provided if indicated.
[2024-01-16 10:42] VITALS: BP 107/68; PULSE 80; RESP 16; TEMP 36.3; O2SAT 96
[2024-01-16 10:57] VITALS: BP 126/80; PULSE 60; RESP 16; O2SAT 100
[2024-01-16 11:12] VITALS: BP 128/79; PULSE 60; RESP 16; TEMP 36.3; O2SAT 100
== END 2024-01-16 12:08 | disposition home or self-care (01) ==
PROVIDERS: PCP Internal Medicine; Visit Provider Internal Medicine Gastroenterology
PROC: 0DJD8ZZ Inspection of Lower Intestinal Tract, Via Natural or Artificial Opening Endoscopic (ICD-10-PCS; CPT 45378; principal; 2024-01-16 12:30)
DX: Z12.11 Encounter for screening for malignant neoplasm of colon (principal); K62.1 Rectal polyp; K57.30 Diverticulosis of large intestine without perforation or abscess without bleeding; K64.0 First degree hemorrhoids; E78.5 Hyperlipidemia, unspecified; F33.9 Major depressive disorder, recurrent, unspecified; F41.9 Anxiety disorder, unspecified; E55.9 Vitamin D deficiency, unspecified; E66.3 Overweight; Z68.26 Body mass index [BMI] 26.0-26.9, adult; Z79.899 Other long term (current) drug therapy; Z88.0 Allergy status to penicillin; Z90.49 Acquired absence of other specified parts of digestive tract; Z98.890 Other specified postprocedural states
CPT/HCPCS: 45380; 88305; J2704

== ENCOUNTER → 2024-01-16 09:06 | Outpatient (BNV) | payer OTHER, SELFPAY | PROVIDERS: PCP Internal Medicine; Visit Provider Internal Medicine Gastroenterology | DX: Z12.11 Encounter for screening for malignant neoplasm of colon (principal); K57.90 Diverticulosis of intestine, part unspecified, without perforation or abscess without bleeding; K64.0 First degree hemorrhoids | CPT/HCPCS: 45380 ==

== ENCOUNTER 2024-01-26 10:40 | Outpatient (AMB) | payer OTHER, SELFPAY ==
[2024-01-26 10:59] VITALS: BP 123/76; PULSE 62; BMI 27.4
--- NOTE | 2024-01-26 10:59 | A.OFFVIS_ITS ---
Intake Vital Signs 01/26/24 10:59 Height 5 ft 2 in Weight 149 lb 14.629 oz BMI 27.4 BP 123/76 Blood Pressure Location Rt brachial Position Sitting Pulse 62 Pulse Source Pulse Oximeter Intake Visit Reasons: s/p colon Intake Note: Patient here s/p colonoscopy on 01-16-24. Pt states she is feeling well. Pt denies any N/V/D. Allergies amoxicillin [AMOXICILLIN] Allergy (Severe, Verified 01/26/24 11:00) RASH Penicillins Allergy (Severe, Verified 01/26/24 11:00) Rash HPI s/p colon HPI Details LAST VISIT Screen for colon cancer Patient denies any GI, cardiac or respiratory symptoms.? Denies any issues with anesthesia in the past.? Denies any history of sleep apnea.? No history infectious diseases in the past or present.? Not on any anticoagulation therapy.? No family or personal history of colon cancer or polyps.? Patient denies melena, hematochezia, unintentional weight loss or ribbon like stools.? Discussed at length the pre-procedure,? prep, diet & medications as well as what to expect prior, during and after the procedure.?? Stressed the importance of good bowel prep. ?Recommended the use of Vaseline or Calmoseptine OTC & baby wipes with bowel movements to promote comfort.? ?Patient verbalizes understanding and agrees to plan of care.? She was given the opportunity to ask questions and all questions answered.? We will see her after the procedure.? Plan Medications New polyethylene glycol 3350 (Miralax) As directed by gastroenterology department at [facility] 238 grams PO ONCE 238 grams 0RF Z12.11 bisacodyl (Dulcolax (bisacodyl)) take 4 tabs at noon the day before your colonoscopy 20 mg (4 x 5 mg) PO ONCE 1 day 4 tabs 0R F Z12.11 COLONOSCOPY Findings: Terminal Ileum-normal Cecum:normal Right sided retroflexion- normal Ascending Colon: scattered diverticula seen Transverse Colon -normal Descending Colon: moderate diverticulosis Sigmoid Colon: moderate severe diverticulosis Rectum: Retroflexion with medium sized internal hemorrhoids, grade I, 5-7 mm sessile polyp removed with cold forceps Anorectum - normal Colon preparation: [place] Bowel Preparation Scale Right colon; 2 Transverse colon: 2 Left colon; 3 (0 = Unprepared colon segment with mucos a not seen due to solid stool that cannot be cleared. 1 = Portion of mucosa of the colon segme nt seen, but other areas of the colon segment not well seen due to staining, residual stool and/or opaque liquid. 2 = Minor amount of residual staining, s mall fragments of stool and/or opaque liquid, but mucosa of colon segment seen well. 3 = Entire mucosa of colon segment seen well with no residual staining, small fragments of stool or opaque liquid) Impression and Post Procedure Diagnosis: polyp internal hemorrhoids diverticular disease Plan: High fiber diet leaflet Avoid straining at stool, epsom salts and sitz bath, anusol supps or cream Repeat Colonoscopy in 5-7 years if adenomatous polyp, 10 yrs if hyperplastic or earlier if clinically indicated PATHOLOGY RESULTS: Diagnosis Colon, rectal polyp: Hyperplastic polyp TODAY'S VISIT Patient is here today for follow-up and to discuss colonoscopy results. Patient denies any ill effects from the prep, anesthesia or procedure itself. However patient does reports to feeling constipated for couple days after the procedure. Currently patient states that she is moving her bowels well without any issues. Patient is trying to increase fiber in her diet. Not usually eating vegetables but patient does include food in her diet. Hyperplastic polyp found, diverticulosis and internal hemorrhoids. Colonoscopy will be repeated in 10 years, sooner if clinically necessary. Patient denies any melena, hematochezia, unintentional weight loss or ribbon like stools. Patient denies any dyspepsia, dysphagia or odynophagia. Patient denies any GI concerning symptoms today. [facility] Medical History (Updated 01/26/24 @ 11:30 by Mariana Johnson [facility]-) Diverticular disease Overweight (BMI 25.0-29.9) Depression Insomnia Rosacea Vitamin D deficiency Chronic recurrent major depressive disorder Unspecified hemorrhoids Anxiety Hyperlipidemia, unspecified Migraine Surgical History (Updated 01/26/24 @ 11:02 by Cuca Gaming MA) S/P colonoscopy (01/16/24) S/P rotator cuff repair (~11/16/22) Hx laparoscopic cholecystectomy H/O colonoscopy (~06/2018) H/O tubal ligation Family History Father CVD (cardiovascular disease) Diabetes mellitus HTN (hypertension) Mother Diabetes mellitus HTN (hypertension) Social History Housing: House Alcohol intake: former Patient Tobacco Use Status: Never used Tobacco Second Hand Smoke Exposure: No service: No Current occupational status: employed 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 Cognitive needs: No Hearing needs: No Vision needs: Yes Review of Systems Const Denies weight gain and Denies weight loss ENT Reports no additional complaints, Denies dysphagia and Denies odynophagia Card Reports no additional complaints Resp Reports no additional complaints GI Denies abdominal pain, Denies belching, Denies melena, Denies bloating, Denies change in bowel habits, Denies dysphagia, Denies excessive flatus, Denies dyspepsia, Denies heartburn, Denies diarrhea, Denies loose stools, Denies nausea, Denies odynophagia and Denies vomiting Musc Reports no additional complaints Neuro Reports no additional complaints Psych Reports no additional complaints Endo Reports no additional complaints Physical Exam Vital Signs: Last Vital Signs Pulse 62 01/26/24 10:59 BP 123/76 01/26/24 10:59 BMI result Body Mass Index 27.4 Const General: healthy appearing, no acute distress and well developed Nutritional Appearance: obese Orientation/consciousness: patient oriented x3 Resp Effort & Inspection: normal respiratory effort, able to speak in complete sentences, no tracheal deviation and symmetric chest movement Auscultation: clear to auscultation bilaterally Cardio Rate: regular rate GI Inspection: Yes normal to inspection, No distended and Yes obesity Palpation (GI): Soft to palpation, not firm, nontender and No hepatosplenomegaly present Auscultation: normal bowel sounds General: Yes no CVA tenderness Back/Spine/Pelvis Back: no CVA tenderness Skin General skin exam: elasticity normal, turgor normal and dry skin Neuro General: patient oriented x3 Psych Appearance: grossly normal Mental Status: mental status grossly normal Assessment & Plan Assessment & Plan (1) Diverticular disease: Code(s): K57.90 - Diverticulosis of intestine, part unspecified, without perforation or abscess without bleeding (2) Status post colonoscopy: Code(s): Z98.890 - Other specified postprocedural states Plan Colonoscopy with in 10 years, sooner if necessary. Diverticulosis found, high- fiber diet recommended. List of food high in fiber given to patient. Patient can also start probiotic daily. She will follow-up on as needed basis. Patient is agreeable to this plan and verbalizes understanding of instructions. She was given the opportunity to ask questions and all questions answered. Thank you for allowing me to participate in her care Coding Level of Care Code Est Pt Level 3 (52660) Diagnoses Diverticular disease K57.90 Status post colonoscopy Z98.890 Time Spent (min) 25 Comment 15 minutes spent with patient and additional 10 minutes spent reviewing her records
== END 2024-01-26 11:27 | disposition home or self-care (01) ==
PROVIDERS: PCP Internal Medicine; Referring Provider Internal Medicine; Visit Provider Nurse Practitioner Family
DX: K57.90 Diverticulosis of intestine, part unspecified, without perforation or abscess without bleeding (principal); Z98.890 Other specified postprocedural states
CPT/HCPCS: 99213

== ENCOUNTER → 2024-01-26 10:40 | Outpatient (BNVA) | payer OTHER, SELFPAY | PROVIDERS: PCP Internal Medicine; Visit Provider Nurse Practitioner Family ==

== ENCOUNTER 2024-04-05 12:13 | Outpatient (AMB) | payer OTHER, SELFPAY ==
--- NOTE | 2024-04-05 12:28 | MHC.OFFVIS ---
Vital Signs 04/05/24 12:29 Height 5 ft 2 in Weight 149 lb BMI 27.2 Intake Visit Reasons: OV - Right Knee Pain - Last Injection done 09/2023 Intake Note: Eboni is a 57 year old female who presents today for a follow up of her right knee internal derangement, last injection 10/06/23. Patient reports that she is having continued increasing pain and swelling. She explains that her swelling is felt throughout the whole leg. She is taking Ibuprofen 800, Ice and biofreeze application with little to no relief. She is unsure if she would like to repeat injection at this time. Allergies amoxicillin [AMOXICILLIN] Allergy (Severe, Verified 04/05/24 12:33) RASH Penicillins Allergy (Severe, Verified 04/05/24 12:33) Rash HPI HPI OV - Right Knee Pain - Last Injection done 09/2023: Details: 58-year-old female who presents in the office today for a follow up of right knee pain. I last saw the patient in the office on 10/06/2023 when she received a cortisone injection. While in the office the patient reports continued increased pain and edema. She states the edema is throughout the entire right lower extremity. Confirms the use of Ibuprofen 800 mg, ice, and Biofreeze, with no relief. Patient reports intermittent numbness in the entire right lower extremity. [facility] Medical History Diverticular disease Overweight (BMI 25.0-29.9) Depression Insomnia Rosacea Vitamin D deficiency Chronic recurrent major depressive disorder Unspecified hemorrhoids Anxiety Hyperlipidemia, unspecified Migraine Surgical History S/P colonoscopy (01/16/24) S/P rotator cuff repair (~11/16/22) Hx laparoscopic cholecystectomy H/O colonoscopy (~06/2018) H/O tubal ligation Family History Father CVD (cardiovascular disease) Diabetes mellitus HTN (hypertension) Mother Diabetes mellitus HTN (hypertension) Social History Housing: House Alcohol intake: former Patient Tobacco Use Status: Never used Tobacco Second Hand Smoke Exposure: No service: No Current occupational status: employed 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 Cognitive needs: No Hearing needs: No Vision needs: Yes Review of Systems Const All systems reviewed & are unremarkable except as noted in HPI and below Physical Exam Vital Signs: BMI result Body Mass Index 27.2 Const General: cooperative, healthy appearing and no acute distress Resp Effort & Inspection: normal respiratory effort and able to speak in complete sentences Cardio Rate: regular rate Peripheral pulses: Peripheral pulses 2+ throughout GI Palpation (GI): Soft to palpation Skin Lesions: no lesions Rashes: no rashes Extrem Other: Right knee: Normal to inspection. No ecchymosis, erythema, or joint effusion. No tenderness to palpation to the lateral joint line. Tenderness to palpation to the medial joint line Full knee extension and flexion. Negative Micah's. NVI. Office Procedures Joint Injection/Drain Joint Injection/Drain Primary Site: right knee Prep: site was prepped using aseptic technique, ethochloride spray was applied and injection warnings given Injected: 80 mg of, DepoMedrol, with 8 mL of (2% plain lido ) and in the joint Procedure: The patient tolerated the procedure well, but had some pain with the injection and there was some relief with the local anesthesia Coding 57123 - Large joint Procedure code (CPT) selection complete Assessment & Plan Assessment & Plan (1) Internal derangement of right knee: Code(s): M23.91 - Unspecified internal derangement of right knee Category: Medical Plan Ms. Cobian is a 58-year-old female who presents in the office today for a follow up of right knee pain. I last saw the patient in the office on 10/06/2023 when she received a cortisone injection. While in the office the patient reports continued increased pain and edema. She states the edema is throughout the entire right lower extremity. Confirms the use of Ibuprofen 800 mg, ice, and Biofreeze, with no relief. Patient reports intermittent numbness in the entire right lower extremity. The patient was offered a cortisone injection in the right knee with 80 mg of DepoMedrol. The patient was explained the risk, benefits, and alternatives to receiving this injection. After receiving consent for the injection, the patient had the procedure done while in the office today. The patient tolerated the procedure well with no complications. Due to the patient reporting numbness in the right lower extremity we have scheduled an appointment with Physiatry for further evaluation and treatment. Follow up will Orthopedics will be PRN, or sooner if needed. Patient Instructions: Scribed by Dominique Caballero medical claims examiner, for Mary Richey PA-C on 04/05/2024 at 12:16 pm, EST. Coding Level of Care Code Est Pt Level 3 (03876) Diagnoses Internal derangement of right knee M23.91 CPT Codes Coding - 78541 Large joint: 32546 - Large joint ([id number])
[2024-04-05 12:29] VITALS: BMI 27.2
== END 2024-04-05 13:58 | disposition home or self-care (01) ==
PROVIDERS: PCP Internal Medicine; Visit Provider Physician Assistant
DX: M23.91 Unspecified internal derangement of right knee (principal)
CPT/HCPCS: 20610; 99213

== ENCOUNTER → 2024-04-05 12:13 | Outpatient (BNVA) | payer OTHER, SELFPAY | PROVIDERS: PCP Internal Medicine; Visit Provider Physician Assistant | DX: M23.91 Unspecified internal derangement of right knee (principal) | CPT/HCPCS: 20610; J1010 ==

== ENCOUNTER 2024-05-02 09:52 | Outpatient (AMB) | payer OTHER, SELFPAY ==
--- NOTE | 2024-05-02 09:54 | A.OFFVIS_ITS ---
Vital Signs 05/02/24 09:56 Height 5 ft 2 in Weight 147 lb BMI 26.9 Intake Visit Reasons: Newprob-whole lower back pain Intake Note: Eboni is a 58 year old female who presents today for a new problem visit with complaints of bilateral lower back pain. Referred by Mary Richey. Patient reports she has been having numbness and tingling in her right knee for about a year. She works lifting 50 lbs and standing all day which causes her more discomfort. She came in for a cortisone injection in her right knee with Mary Richey on 04/05/24 and was advised to schedule an appointment for a possible pinched nerve. She expresses her back pain is intermittent. As she is having numbness in the right lower extremity. Allergies amoxicillin [AMOXICILLIN] Allergy (Severe, Verified 05/02/24 09:56) RASH Penicillins Allergy (Severe, Verified 05/02/24 09:56) Rash Medication List - Last Reconciled 05/02/24 by Helen Summers MD acetaminophen (Tylenol Extra Strength) 1,000 mg PO Q6H PRN cholecalciferol (vitamin D3) 50 mcg PO DAILY ibuprofen 800 mg PO TID lorazepam 0.5 mg (1/2 x 1 mg) PO BID PRN HPI Comments Details: Right leg numbness (knee, tingling to foot, then thigh) since September. No injury. Was not working, was recovering from RTC right shoulder surgery. When she started working again, the numbness got worse and knee pain. Right knee was swollen. She already had 2 steroid injections from ortho, not anymore swollen, knee pain subsided. But still the numbness sometimes, not as constant. Denies any associated with back pain. No foot drop. [facility] Medical History (Updated 05/02/24 @ 10:20 by Helen Summers MD) Patellofemoral pain syndrome Diverticular disease Overweight (BMI 25.0-29.9) Depression Insomnia Rosacea Vitamin D deficiency Chronic recurrent major depressive disorder Unspecified hemorrhoids Anxiety Hyperlipidemia, unspecified Migraine Surgical History S/P colonoscopy (01/16/24) S/P rotator cuff repair (~11/16/22) Hx laparoscopic cholecystectomy H/O colonoscopy (~06/2018) H/O tubal ligation Family History Father CVD (cardiovascular disease) Diabetes mellitus HTN (hypertension) Mother Diabetes mellitus HTN (hypertension) Social History Housing: House Alcohol intake: former Patient Tobacco Use Status: Never used Tobacco Second Hand Smoke Exposure: No service: No Current occupational status: employed 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 Cognitive needs: No Hearing needs: No Vision needs: Yes Review of Systems Const All systems reviewed & are unremarkable except as noted in HPI and below Physical Exam Vital Signs: BMI result Body Mass Index 26.9 Constitutional: Patient appears to be in no acute distress, well nourished and well developed. Patient was appropriately conversant and oriented. Good historian. MSK: No specific abnormalities found on inspection of the spine and all extremities. No pain with palpation over the lumbar area. Lumbar ROM was full. Bilateral hip, knee and ankle ROM WNL. No ligamentous laxity or crepitance. No increased effusion. Straight-leg raising test negative. FABERE test negative. No tenderness or effusion or redness or right knee. No medial or joint line tenderness. Good patellar movement. Negative patellar grind. No Ng's cyst. No calf tenderness or swelling. No footdrop. Strength is 5/5 in all muscle groups tested. No increased tone noted. Neurological: Neurologic examination of the upper and lower extremities was nonfocal with inta ct sensation, muscle stretch reflexes and without focal motor deficits . Bales?s negative bilaterally. Babinski was down going bilaterally. Clonus was negative. Gait is non-antalgic without loss of balance. Results Reviewed Results Reviewed: I independently reviewed the results of the following: Right knee x-ray showed narrowing of patellofemoral space with tracking laterally. Although the x-ray reading was read as unremarkable. Images shown to patient. I reviewed records from the following: Ortho Assessment & Plan Assessment & Plan (1) Patellofemoral pain syndrome: Code(s): M22.2X9 - Patellofemoral disorders, unspecified knee Category: Medical Qualifiers: Laterality: right Qualified Code(s): M22.2X1 - Patellofemoral disorders, right knee (2) Peroneal neuropathy: Code(s): G57.30 - Lesion of lateral popliteal nerve, unspecified lower limb Category: Medical Qualifiers: Laterality: right Qualified Code(s): G57.31 - Lesion of lateral popliteal nerve, right lower limb Plan She had right leg numbness associated with knee pain. Denies any back pain. No signs of lumbar radiculopathy or myelopathy. Suspect that she may or may not have had a peroneal neuropathy because of the knee effusion. But there are no more evidence of that now. Continue to watch. Did notice poor tracking patella on x-ray. Encouraged physical therapy. Patient has long-term goal of running the marathon. If numbness should come back, patient to call our office. We can consider EMG if that happens. Assessment and plan discussed with patient, and patient was agreeable. All questions were answered thoroughly. Follow up in physiatry as needed. Helen Summers MD, RENAN Board Certified, [place] Board [employer] and Rehabilitation (ABPMR) Board Certified, [place] Board of Electrodiagnostic Medicine (ABEM) Orders: Orders PT Evaluation and Treatment Today G57.30 - Lesion of lateral popliteal nerve, unspecified lower limb, M22.2X9 - Patellofemoral disorders, unspecified knee Coding Level of Care Code New Pt Level 4 (16508) Diagnoses Patellofemoral pain syndrome of right knee M22.2X1 Laterality: right Neuropathy of right peroneal nerve G57.31 Laterality: right
[2024-05-02 09:56] VITALS: BMI 26.9
== END 2024-05-02 10:18 | disposition home or self-care (01) ==
PROVIDERS: PCP Internal Medicine; Visit Provider Physical Medicine & Rehabilitation
DX: M22.2X1 Patellofemoral disorders, right knee (principal); G57.31 Lesion of lateral popliteal nerve, right lower limb
CPT/HCPCS: 99203

== ENCOUNTER → 2024-05-02 09:52 | Outpatient (BNVA) | payer OTHER, SELFPAY | PROVIDERS: PCP Internal Medicine; Visit Provider Physical Medicine & Rehabilitation ==

== ENCOUNTER 2024-05-17 07:46 | Outpatient (REF) | payer OTHER, SELFPAY ==
[2024-05-17 08:36] LABS: Alanine Aminotransferase 13 U/L (0-31); Albumin Level 4.3 g/dL (3.5-5.0); Alkaline Phosphatase 91 U/L (39-117); Anion Gap 10 (12-20); Aspartate Amino Transferase 18 U/L (5-31); Bilirubin Total 0.4 mg/dL (0.0-1.0); Blood Urea Nitrogen 13 mg/dL (9-16); Calcium 9.9 mg/dL (8.4-10.2); Carbon Dioxide 30 mmol/L (22-29); Chloride 107 mmol/L (96-108); Cholesterol 254 mg/dL (<200); Estimated Glomerular Filt Rate > 60; Glucose Fasting 84 mg/dL (60-99); HDL Cholesterol 125 mg/dL (>40); LDL Cholesterol Calculated 122 mg/dL (<100); Potassium 4.4 mmol/L (3.3-5.1); Sodium 143 mmol/L (135-145); Total Protein 7.4 g/dL (6.5-8.0); Triglycerides 37 mg/dL (<150)
[2024-05-17 09:17] LABS: Appearance Urine Clear; Color Urine Yellow; Glucose Urine UA Negative (Negative); Leukocyte Esterase Urine Negative (Negative); Nitrite Urine Negative (Negative); Urine Blood Negative (Negative); Urine Ketones Negative (Negative); Urine Protein Negative (Neg-Trace)
== END 2024-05-17 07:47 | disposition home or self-care (01) ==
LOC: HO.LAB 07:46
PROVIDERS: PCP Internal Medicine; Visit Provider Internal Medicine
DX: Z00.00 Encounter for general adult medical examination without abnormal findings (principal); R30.0 Dysuria; E78.00 Pure hypercholesterolemia, unspecified
CPT/HCPCS: 36415; 80053; 80061; 81003

== ENCOUNTER 2024-06-21 11:00 | Outpatient (RCR) | payer OTHER, SELFPAY ==
--- NOTE | 2024-05-31 11:50 | MHC.PT.EP ---
[facility] [place] Office [place] Office [place] Office [address] [phone] F: [phone] F: [phone] F: [phone] F: [phone] Physical Therapy Plan of Care Date of Evaluation: 05/31/24 Date of Surgery: n/a Diagnosis: patellofemoral disorders of knee Assessment: Patient is a 58 year old female presenting to PT with complaints of pain in her R knee. Pt reports onset of pain began about 2 years ago due to insidious onset. She presents today with impairments in pain, ROM, hip strength, knee strength. 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 Pt expresses snf goal of reducing pain, and is motivated to work towards this in PT. Clinical presentation today is most consistent with signs and sx associated with R knee pain and pt will benefit from skilled PT 2 week x 4 weeks to address the following problems and impairments noted upon evaluation: pain, ROM, hip strength, knee strength. These problems limit the patient with the following functional activities: ambulating, stair negotiation, ADLs, work. The prescribed treatment plan of care is medically necessary. Co-morbidities of none were identified and taken into considerations of plan of care. Pt was educated on HEP, role of PT, prognosis, POC. Frequency and Duration: The patient will be seen 2 x week x 4 weeks Short Term Goals: Pt will demonstrate R knee flexion of 130 in 2 weeks. Pt will demonstrate R knee MMT strength of 5/5 in 2 weeks. Pt will demonstrate improved hip MMT strength by 1/3 grade in 2 weeks for improved lumbopelvic stability. Care Home Goals: Pt will demonstrate improved LEFI score by 9 points in 4 weeks for improved functional mobility. Pt will demonstrate ability to ambulate with min to no pain x 1 mile in 4 weeks for return to PLOF. Pt will demonstrate ability to negotiate stairs with min to no pain in 4 weeks for return to PLOF. Treatment Plan: Modalities to reduce pain, spasms and effusion. Manual therapy to restore motion and function. Therapeutic exercise to improve strength and flexibility. Neuromuscular re-education for posture and balance. Therapeutic activities to return to functional activities of daily living. Electronically signed by: Samantha Schwarz, PT, DPT, ATC Please sign and return to therapist. Thank you for your referral.
--- NOTE | 2024-07-05 08:08 | MHC.PT.DC ---
[facility] [place] Office [place] Office [place] Office [address] [facility] [phone] F: [phone] F: [phone] F: [phone] F: [phone] Physical Therapy Discharge Report Diagnosis: patellofemoral disorders of knee Date of Surgery: n/a Date of Evaluation: 05/31/24 Date of Discharge: 07/05/24 Treatments to Date: 4 Cancellations to Date: 2 No Shows to Date: 0 Discharge Status: Patient Elected to Stop Discharge Summary: Pt called stating she was ready to be d/c. Electronically signed by: Samantha Schwarz, PT, DPT, ATC Please sign and return to therapist. Thank you for your referral.
== END 2024-07-05 08:08 | disposition home or self-care (01) ==
LOC: HO.PTCHIC 11:00
PROVIDERS: PCP Internal Medicine; Visit Provider Physical Medicine & Rehabilitation
DX: M22.2X1 Patellofemoral disorders, right knee (principal); G57.31 Lesion of lateral popliteal nerve, right lower limb
CPT/HCPCS: 97110; 97140; 97161

== ENCOUNTER 2024-08-06 12:44 | Outpatient (AMB) | payer OTHER, SELFPAY ==
--- NOTE | 2024-08-06 12:47 | A.OFFPC_ITS ---
Vital Signs 08/06/24 12:48 Height 5 ft 2 in Weight 148 lb 8 oz BMI 27.2 BP 118/82 Blood Pressure Location Lt brachial Position Sitting Pulse 86 Pulse Source Pulse Oximeter Pulse Oximetry (%) 98 Oxygen Delivery Method Room Air Intake Visit Reasons: pain underneath right rib Measuring Clerk Required: No Accompanied by: Self / Same As Patient Allergies amoxicillin [AMOXICILLIN] Allergy (Severe, Verified 08/11/24 21:14) RASH Penicillins Allergy (Severe, Verified 08/11/24 21:14) Rash Medication List - Last Reconciled 08/11/24 by North Reynolds MD acetaminophen (Tylenol Extra Strength) 1,000 mg PO Q6H PRN cholecalciferol (vitamin D3) 50 mcg PO DAILY famotidine 20 mg PO BID 14 days ibuprofen 800 mg PO TID lorazepam 0.5 mg (1/2 x 1 mg) PO BID PRN omeprazole 20 mg PO DAILY 90 days Tobacco use date assessed: 08/06/24 Dental Screening Dental Screen Date: 08/06/24 Did you have a dental visit in the last 12 months?: Yes Did you have a dental problem in the last 6 months where you did not have access to dental care?: No Was dental information given to patient?: Patient has dentist HPI pain underneath right rib HPI Details Patient comes in today for further evaluation of a few recent issues States that she has been experiencing recurrent epigastric pain for the past few weeks Notes that the pain over her epigastric area got significantly worse recently and she ended up going to urgent care ([facility]) in [place] a couple of weeks ago on 07/23/2024 States that they did an urinalysis on her in the clinic and was advised that her U/A came out normal She was started on Omeprazole and was reportedly advised to see her PCP about getting further work ups for her symptoms, either an upper GI series or EGD States that she also has a raised lesion just to the right side of her umbilicus (she thinks this is a scar tissue from her previous laparoscopic surgeries - cholecystectomy and tubal ligation) that has been hurting lately Also reports (+) periumbilical pain in addition to her on and off epigastric pain for the past few weeks Patient relates (+) nausea at times when her abdominal pain flares up; denies any vomiting She denies any fever, headaches or dizziness Denies any chest pains, no increased SOB She has not noticed any blood in her stool lately and denies any change in bowel habits lately [facility] Medical History (Updated 08/06/24 @ 13:24 by North Reynolds MD) Patellofemoral pain syndrome Diverticular disease Overweight (BMI 25.0-29.9) Depression Insomnia Rosacea Vitamin D deficiency Chronic recurrent major depressive disorder Unspecified hemorrhoids Anxiety Hyperlipidemia, unspecified Migraine Surgical History S/P colonoscopy (01/16/24) S/P rotator cuff repair (~11/16/22) Hx laparoscopic cholecystectomy H/O colonoscopy (~06/2018) H/O tubal ligation Family History Father CVD (cardiovascular disease) Diabetes mellitus HTN (hypertension) Mother Diabetes mellitus HTN (hypertension) Social History Housing: House Alcohol intake: former Patient Tobacco Use Status: Never used Tobacco Second Hand Smoke Exposure: No service: No Current occupational status: employed 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 Cognitive needs: No Hearing needs: No Vision needs: Yes Questionnaire PHQ-9 Over the last 2 weeks, how often have you been bothered by any of the following problems? 1. Little interest or pleasure in doing things: not at all 2. Feeling down, depressed, or hopeless: not at all 3. Trouble falling or staying asleep, or sleeping too much: not at all 4. Feeling tired or having little energy: not at all 5. Poor appetite or overeating: not at all 6. Feeling bad about yourself - or that you are a failure or have let yourself or your family down: not at all 7. Trouble concentrating on things, such as reading the newspaper or watching television: not at all 8. Moving or speaking so slowly that other people could have noticed. Or the opposite - being so fidgety or restless that you have been moving around a lot more than usual: not at all 9. Thoughts that you would be better off or of hurting yourself in some way: not at all Total score: 0 Depression Screening Interpretation: Negative Depression Screening Done: Yes 33354 - PHQ-9 Billing: Yes Source: Developed by Drs. Alexander Shipley, Ceci Bob, Marvel Marrero and colleagues, with an educational amarjit from [employer]. Thrive Questionnaire Date Thrive assessed: 08/06/24 I am a: Patient What is your living situation today?: I have a steady place to live Within the past 12 months, did the food you bought not last and you didn't have the money to get more?: Never true Within the past 12 months, did you worry whether your food would run out before you got money to buy more?: Never true Do you have trouble paying for medicines?: No Do you have trouble getting transportation to medical appointments?: No Do you have trouble paying your heating and electricity bill?: No Do you have trouble taking care of your child, family member or friend?: No Do you have trouble with day-to-day activities such as bathing, preparing meals, shopping, managing finances, etc.?: No Are you currently unemployed and looking for a job?: No Are you interested in more education?: No Please select the resources that you would like help with: None Currently or been in a relationship where the following occur: No concerns reported THRIVE Score: 0 AUDIT C Alcohol Use Questionnaire (AUDIT-C) 1. How often do you have a drink containing alcohol?: Never 3. How often do you have six or more drinks on one occasion?: Never Total Score: 0 Score Reviewed/Action Taken: Yes CASSANDRA-7 AMB Questionnaire CASSANDRA-7 Date CASSANDRA - 7 assessed: 08/06/24 Feeling nervous, anxious, or on edge: 2 = More than half the days Not being able to stop or control worryin = More than half the days Worrying too much about different things: 0 = Not at all Trouble relaxin = Not at all Being so restless that it is hard to sit still: 0 = Not at all Becoming easily annoyed or irritable: 0 = Not at all Feeling afraid as if something awful might happen: 0 = Not at all Total CASSANDRA-7 score (0-4 normal; 5-9 mild; 10-14 moderate; 15-21 severe): 4 Source: Developed by Drs. Alexander Shipley, Ceci Bob, Marvel Marrero and colleagues, with an educational amarjit from [employer]. Review of Systems Const Denies chills, Denies fatigue, Denies fever(s) and Denies headache(s) ENT Denies dysphagia, Denies dizziness, Denies otalgia, Denies headache(s), Denies neck pain, Denies odynophagia and Denies sore throat Card Denies chest pain, Denies irregular heart rhythm, Denies palpitations and Denies dyspnea Resp Denies chest congestion, Denies cough and Denies dyspnea GI Reports abdominal pain (recurrent, over the epigastric area - see HPI), Denies hematochezia, Denies constipation, Denies dysphagia, Denies heartburn, Denies diarrhea, Reports nausea (on and off), Denies odynophagia and Denies vomiting Denies urinary frequency, Denies dysuria and Denies urinary urgency Musc Denies back pain, Denies arthralgias and Denies neck pain Skin/Breast Denies rash Neuro Denies dizziness and Denies headache(s) Psych Denies anxiety and Denies depression Endo Denies fatigue and Denies palpitations William/Lymph Denies easy bruising Physical exam (Primary Care) Vital Signs: Last Vital Signs Pulse 86 08/06/24 12:48 BP 118/82 08/06/24 12:48 Pulse Ox 98 08/06/24 12:48 Oxygen Delivery Method Room Air 08/06/24 12:48 BMI result Body Mass Index 27.2 Tobacco/Smoking Status: Tobacco use Status Tobacco use date assessed 08/06/24 08/06/24 12:54 Patient Tobacco Use Status Never used Tobacco 08/06/24 12:54 PHQ-9: PHQ-9 Score PHQ-9: Total score 0 08/06/24 13:19 Depression Screening Interpretation: Negative Thrive Assessment: Date of Thrive Assessment Date Thrive assessed 08/06/24 08/06/24 12:54 Currently or been in a relationship where the following occur: No concerns reported Const General: no acute distress and alert HENMT Ears: TM's normal bilaterally and EAC's normal Throat: Yes posterior oropharynx normal and Yes tonsils normal (no TP congestion) Neck Neck: Yes no lymphadenopathy and Yes supple Thyroid: Thyroid normal Resp Auscultation: clear to auscultation bilaterally, no rales and no wheezes Cardio Rate: regular rate Rhythm: regular rhythm Heart sounds: no murmurs GI Other: (+) small protruding scar tissue over the right edge of the umbilicus Palpation (GI): Tenderness to palpation present (GI) (mild) in the epigastrum, no guarding, not rigid and No Rebound tenderness present Auscultation: normal bowel sounds General: Yes no CVA tenderness Back/Spine/Pelvis Back: no CVA tenderness Skin Rashes: no rashes Extrem General: Yes no clubbing, cyanosis or edema Assessment and Plan Assessment & Plan (1) Epigastric abdominal pain: Code(s): R10.13 - Epigastric pain Plan: Discussed dietary restrictions in GERD/gastritis with patient Will start her for now on Omeprazole 20 mg QD and Famotidine 20 mg BID x 14 days Will also send her for an upper GI series SANDI for further evaluation Plan To return as scheduled for her annual physical examination in September 2024 Orders: Orders [place] upper GI series 08/06/24 R10.13 - Epigastric pain Medications: New omeprazole 20 mg PO DAILY 90 days 90 caps 1RF famotidine 20 mg PO BID 14 days 28 tabs 0RF Coding Level of Care Code Est Pt Level 3 (37272) Diagnoses Epigastric abdominal pain R10.13
[2024-08-06 12:48] VITALS: BP 118/82; PULSE 86; O2SAT 98; BMI 27.2
== END 2024-08-06 13:31 | disposition home or self-care (01) ==
PROVIDERS: PCP Internal Medicine; Visit Provider Internal Medicine
DX: R10.13 Epigastric pain (principal)

== ENCOUNTER → 2024-08-06 12:44 | Outpatient (BNVA) | payer OTHER, SELFPAY | PROVIDERS: PCP Internal Medicine; Visit Provider Internal Medicine | DX: R10.13 Epigastric pain (principal) | CPT/HCPCS: 96127 ==

== ENCOUNTER 2024-09-27 07:45 | Outpatient (REF) | payer OTHER, SELFPAY ==
--- NOTE | ~2024-09-27 | MM_ITS ---
EXAMINATION: MM SCREENING DIGITAL BREAST TOMOSYNTHESIS, BILATERAL CLINICAL INFORMATION: Screening. Asymptomatic. COMPARISON: Mammography: Comparison is made with available priors TECHNIQUE: Digital breast mammography with tomosynthesis is performed in both the craniocaudal and mediolateral oblique views along with computer-aided detection (CAD). FINDINGS: The breasts are heterogeneously dense, which may obscure small masses (ACR BI-RADS breast composition Category c). Left: There are no significant masses, abnormal calcifications, or other abnormalities. Right: Asymmetry with questioned architectural distortion lateral breast middle depth on CC view. No suspicious calcifications or other abnormal findings. MM/MM tomosynthesis screening BI IMPRESSION: Additional imaging is recommended ASSESSMENT: BI-RADS BI-RADS 0 - Incomplete: Needs additional Imaging. RECOMMENDATION: 1. Additional views of the right breast 2. Targeted ultrasound if warranted after review of the additional views. 3. Radiology department staff will contact the patient for additional imaging. Additional Imaging required This examination should not preclude the clinical evaluation of a suspicious palpable abnormality. This patient's information was entered into a reminder system with a target due date for their next mammogram. Electronically signed by: Maryan Rosas DO 10/08/2024 09:13 AM EST
== END 2024-09-27 07:46 | disposition home or self-care (01) ==
LOC: HO.MAMMO 07:45
PROVIDERS: PCP Internal Medicine; Visit Provider Internal Medicine
DX: Z12.31 Encounter for screening mammogram for malignant neoplasm of breast (principal)
CPT/HCPCS: 77063; 77067; 88175; 90471; 90656; 96127

== ENCOUNTER → 2024-09-27 07:45 | Outpatient (BNV) | payer OTHER, SELFPAY | PROVIDERS: PCP Internal Medicine; Visit Provider Internal Medicine | DX: Z12.31 Encounter for screening mammogram for malignant neoplasm of breast (principal) | CPT/HCPCS: 77063; 77067 ==

== ENCOUNTER 2024-09-27 08:48 | Outpatient (AMB) | payer OTHER, SELFPAY ==
[2024-09-27 08:49] VITALS: BP 110/78; PULSE 71; O2SAT 97; BMI 26.7
--- NOTE | 2024-09-27 08:49 | A.OFFPC_ITS ---
Vital Signs 09/27/24 08:49 Height 5 ft 2 in Weight 146 lb 4 oz BMI 26.7 BP 110/78 Blood Pressure Location Lt brachial Position Sitting Pulse 71 Pulse Source Pulse Oximeter Pulse Oximetry (%) 97 Oxygen Delivery Method Room Air Intake Visit Reasons: pe Waterproofing Supervisor Required: No Accompanied by: Self / Same As Patient Allergies amoxicillin [AMOXICILLIN] Allergy (Severe, Verified 09/27/24 09:11) RASH Penicillins Allergy (Severe, Verified 09/27/24 09:11) Rash Medication List - Last Reconciled 09/27/24 by North Reynolds MD acetaminophen (Tylenol Extra Strength) 1,000 mg PO Q6H PRN cholecalciferol (vitamin D3) 50 mcg PO DAILY famotidine 20 mg PO BID 14 days ibuprofen 800 mg PO TID lorazepam 0.5 mg (1/2 x 1 mg) PO BID PRN omeprazole 20 mg PO DAILY 90 days Tobacco use date assessed: 09/27/24 Dental Screening Dental Screen Date: 09/27/24 Did you have a dental visit in the last 12 months?: Yes Did you have a dental problem in the last 6 months where you did not have access to dental care?: No Was dental information given to patient?: Patient has dentist HPI pe HPI Details Patient comes in today for her annual physical examination States that she feels okay Denies any headaches or dizziness Denies any chest pains, no SOB No nausea/vomiting, no abdominal pain - states that her previous epigastric pain has mostly subsided and she stopped taking Omeprazole as it was starting to bother her a lot (very dry mouth and bitter aftertaste) States that she has not yet been contacted regarding her upper GI series that we previously ordered for her No change in bowel habits noted She denies any acute urinary symptoms Needs her Lorazepam Rx refilled today Would also like to get her flu shot today [facility] Medical History (Updated 09/27/24 @ 09:28 by North Reynolds MD) Osteoporosis Patellofemoral pain syndrome Diverticular disease Overweight (BMI 25.0-29.9) Depression Insomnia Rosacea Vitamin D deficiency Chronic recurrent major depressive disorder Unspecified hemorrhoids Anxiety Hyperlipidemia, unspecified Migraine Surgical History S/P colonoscopy (01/16/24) S/P rotator cuff repair (~11/16/22) Hx laparoscopic cholecystectomy H/O colonoscopy (~06/2018) H/O tubal ligation Family History Father CVD (cardiovascular disease) Diabetes mellitus HTN (hypertension) Mother Diabetes mellitus HTN (hypertension) Social History Housing: House Alcohol intake: former Patient Tobacco Use Status: Never used Tobacco e-Cigarette/Vaping Use: Never Used Second Hand Smoke Exposure: No service: No Current occupational status: employed 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 Cognitive needs: No Hearing needs: No Vision needs: Yes Questionnaire PHQ-9 Over the last 2 weeks, how often have you been bothered by any of the following problems? 1. Little interest or pleasure in doing things: not at all 2. Feeling down, depressed, or hopeless: not at all 3. Trouble falling or staying asleep, or sleeping too much: not at all 4. Feeling tired or having little energy: not at all 5. Poor appetite or overeating: not at all 6. Feeling bad about yourself - or that you are a failure or have let yourself or your family down: not at all 7. Trouble concentrating on things, such as reading the newspaper or watching television: not at all 8. Moving or speaking so slowly that other people could have noticed. Or the opposite - being so fidgety or restless that you have been moving around a lot more than usual: not at all 9. Thoughts that you would be better off or of hurting yourself in some way: not at all Total score: 0 Depression Screening Interpretation: Negative Depression Screening Done: Yes 10923 - PHQ-9 Billing: Yes Source: Developed by Drs. Alexander Shipley, Ceci Bob, Marvel Marrero and colleagues, with an educational amarjit from [employer]. Thrive Questionnaire Date Thrive assessed: 09/27/24 I am a: Patient What is your living situation today?: I have a steady place to live Within the past 12 months, did the food you bought not last and you didn't have the money to get more?: Never true Within the past 12 months, did you worry whether your food would run out before you got money to buy more?: Never true Do you have trouble paying for medicines?: No Do you have trouble getting transportation to medical appointments?: No Do you have trouble paying your heating and electricity bill?: No Do you have trouble taking care of your child, family member or friend?: No Do you have trouble with day-to-day activities such as bathing, preparing meals, shopping, managing finances, etc.?: No Are you currently unemployed and looking for a job?: No Are you interested in more education?: No Please select the resources that you would like help with: None Currently or been in a relationship where the following occur: No concerns reported THRIVE Score: 0 AUDIT C Alcohol Use Questionnaire (AUDIT-C) 1. How often do you have a drink containing alcohol?: Never 3. How often do you have six or more drinks on one occasion?: Never Total Score: 0 Score Reviewed/Action Taken: Yes CASSANDRA-7 AMB Questionnaire CASSANDRA-7 Date CASSANDRA - 7 assessed: 09/27/24 Feeling nervous, anxious, or on edge: 0 = Not at all Not being able to stop or control worryin = Not at all Worrying too much about different things: 0 = Not at all Trouble relaxin = Not at all Being so restless that it is hard to sit still: 0 = Not at all Becoming easily annoyed or irritable: 0 = Not at all Feeling afraid as if something awful might happen: 0 = Not at all Total CASSANDRA-7 score (0-4 normal; 5-9 mild; 10-14 moderate; 15-21 severe): 0 Source: Developed by Drs. Alexander Shipley, Ceci oBb, Marvel Marrero and colleagues, with an educational amarjit from [employer]. Review of Systems Const Denies chills, Denies fatigue, Denies fever(s), Denies headache(s) and Denies malaise Eyes Denies blurry vision, Denies change in vision, Denies irritation and Denies itchy eyes ENT Denies dysphagia, Denies dizziness, Denies otalgia, Denies headache(s), Denies nasal congestion, Denies neck pain, Denies odynophagia, Denies sinus pain and Denies sore throat Card Denies chest pain, Denies rapid heart rate, Denies irregular heart rhythm, Denies palpitations and Denies dyspnea Resp Denies chest congestion, Denies cough, Denies dyspnea and Denies wheezing GI Denies abdominal pain, Denies bloating, Denies constipation, Denies dysphagia, Denies heartburn, Denies diarrhea, Denies nausea, Denies odynophagia and Denies vomiting Denies hematuria, Denies urinary frequency, Denies dysuria, Denies urinary incontinence and Denies urinary urgency Musc Denies back pain, Reports arthralgias (over both shoulders, on and off), Denies joint swelling, Denies muscle weakness and Denies neck pain Skin/Breast Denies breast pain, Denies breast mass, Denies change in pigmentation, Denies lesions, Denies rash and Denies unusual bruising Neuro Denies dizziness, Denies headache(s) and Denies paresthesias Psych Denies anxiety and Denies depression Endo Denies fatigue and Denies palpitations William/Lymph Denies easy bruising Aller/Immun Denies itchy eyes and Denies wheezing Physical exam (Primary Care) Vital Signs: Last Vital Signs Pulse 71 09/27/24 08:49 BP 110/78 09/27/24 08:49 Pulse Ox 97 09/27/24 08:49 Oxygen Delivery Method Room Air 09/27/24 08:49 BMI result Body Mass Index 26.7 Tobacco/Smoking Status: Tobacco use Status Tobacco use date assessed 09/27/24 09/27/24 08:52 Patient Tobacco Use Status Never used Tobacco 09/27/24 08:52 e-Cigarette/Vaping Use Never Used 09/27/24 08:52 PHQ-9: PHQ-9 Score PHQ-9: Total score 0 09/27/24 08:54 Depression Screening Interpretation: Negative Thrive Assessment: Date of Thrive Assessment Date Thrive assessed 09/27/24 09/27/24 08:52 Currently or been in a relationship where the following occur: No concerns reported Const General: no acute distress, alert and awake Orientation/consciousness: patient oriented x3 HENMT Head: Yes normocephalic and Yes atraumatic Ears: external ears normal, TM's normal bilaterally and EAC's normal General nose exam: No nasal discharge present Face and sinus: Yes normal facial exam and Yes sinuses nontender Teeth and gingiva: dentition normal Throat: Yes posterior oropharynx normal and Yes tonsils normal (no TP congestion) Eyes Eyelids: Yes eyelids normal Conjunctivae: conjunctivae normal Pupils: Equal, round and reactive pupils present EOM: EOMs intact bilaterally Neck Neck: Yes no lymphadenopathy and Yes supple Thyroid: Thyroid normal Resp Auscultation: clear to auscultation bilaterally, no rales and no wheezes Cardio Rate: regular rate Rhythm: regular rhythm Heart sounds: no murmurs GI Palpation (GI): Soft to palpation, nontender and No hepatosplenomegaly present Auscultation: normal bowel sounds General: Yes no CVA tenderness External Female Exam: normal external appearance Speculum Exam - Vagina: normal appearance of the vagina Speculum Exam - Cervix: normal appearance of the cervix Bimanual exam- vagina & uterus: normal bimanual exam Bimanual Exam- Adnexa, other: no masses Back/Spine/Pelvis Back: no CVA tenderness Thoracic/Lumbar Spine: thoracic and lumbar spine normal to inspection Skin Lesions: no lesions Rashes: no rashes Neuro General: patient oriented x3, moves all extremities, no focal motor deficits and CN's II-XI intact bilaterally Cranial nerves: Yes Equal, round and reactive pupils present Cognition (Neuro): normal cognition Gait exam (Neuro): Normal gait present Extrem General: Yes no clubbing, cyanosis or edema Office Procedures Flu Questionnaire Does the patient have a severe egg allergy?: No Does the patient have severe life threatening allergies?: No Does the patient have a fever or illness today?: No Has the patient ever had Guillain-[place] Syndrome?: No Has the patient ever had any past reaction to a flu shot?: No Immunizations Fluarix Triv [id number] (PF) 45 mcg (15 mcg x 3)/0.5 mL IM syringe Performing Provider: North Reynolds MD [facility] [place] [facility] Administered by: GRACY An on 09/27/24 09:00 Dose Route Admin Location Dispensed Lot Number Expiration Date [facility] Senior Product Marketing Manager 0.5 mL IM Left Deltoid 0.5 mL [id number] 05/19/25 [id number] [facility] V[facility] Given Date VIS Provided VIS Publication Date 09/27/24 Single Vaccine 21 Eligibility Eligibility Date Funding Source Not [facility] Eligible 09/27/24 Private Coding Level of Care Code Est Pt Prev Care 40-64y(87147) Diagnoses Annual physical exam Z00.00 Pure hypercholesterolemia E78.00 Migraine without status migrainosus, not intractable, unspecified migraine type G43.909 Migraine type: unspecified Status migrainosus presence: without status migrainosus Intractability: not intractable Vitamin D deficiency E55.9 Age-related osteoporosis without current pathological fracture M81.0 Osteoporosis type: age-related Presence of current pathological fracture: without current pathological fracture Rotator cuff tear arthropathy of right shoulder M75.101; M12.811 Rosacea L71.9 Insomnia, unspecified type G47.00 Insomnia type: unspecified Anxiety F41.9 Episode of recurrent major depressive disorder, unspecified depression episode severity F33.9 Depression Type: major depressive disorder Major depression recurrence: recurrent Active/Remission status: currently active Major depression episode severity: unspecified Overweight (BMI 25.0-29.9) E66.3 Cervical cancer screening Z12.4 Additional Codes PHQ-9 - 66271 - PHQ-9 Billing: Yes ([id number]) Assessment & Plan Assessment & Plan (1) Annual physical exam: Code(s): Z00.00 - Encounter for general adult medical examination without abnormal findings Category: Medical Plan: Check labs She is up-to-date with her colon cancer screening (due for repeat in 2033) and annual mammogram (just had this done earlier this morning) She is due for her annual gynecology exam and pap smear, which will be done today (2) Pure hypercholesterolemia: Code(s): E78.00 - Pure hypercholesterolemia, unspecified Category: Medical Plan: Reinforced low cholesterol diet Will recheck her fasting lipids SANDI for follow up (3) Migraine: Code(s): G43.909 - Migraine, unspecified, not intractable, without status migrainosus Category: Medical Qualifiers: Migraine type: unspecified Status migrainosus presence: without status migrainosus Intractability: not intractable Qualified Code(s): G43.909 - Migraine, unspecified, not intractable, without status migrainosus Plan: Stable She was taking Meloxicam 15 mg QD PRN in the past but is currently back on Ibuprofen 800 mg TID for her shoulder pain Have advised her that this should also help with her headaches and can be taken as needed (4) Vitamin D deficiency: Code(s): E55.9 - Vitamin D deficiency, unspecified Category: Medical Plan: Continue Vitamin D3 2000 units QD Will recheck her Vitamin D level for follow up (5) Osteoporosis: Code(s): M81.0 - Age-related osteoporosis without current pathological fracture Category: Medical Qualifiers: Osteoporosis type: age-related Presence of current pathological fracture: without current pathological fracture Qualified Code(s): M81.0 - Age- related osteoporosis without current pathological fracture Plan: Her BMD (baseline exam) done last October 2023 revealed (+) osteoporosis based on the lowest T-score value of -2.7 in the lumbar spine Her left femur BMD is normal Will check her urine NTx for further evaluation Have advised her that if her urine NTx is normal, then I would recommend she start taking Alendronate to help address her osteoporosis as this appears quite advanced for her age If urine NTx is abnormal, would then refer her to endocrinology for further evaluation and management Would also recommend she get lumbar spine x-rays for further evaluation at this time Discussed fall precautions and have advised her that she should start taking OTC Calcium supplements daily and continue on her Vitamin D supplements as well Will recheck her BMD in 2 years for follow up (6) Rotator cuff tear arthropathy of right shoulder: Comment: Right rotator cuff repair 11/16/2022 [place] Code(s): M75.101 - Unspecified rotator cuff tear or rupture of right shoulder, not specified as traumatic; M12.811 - Other specific arthropathies, not elsewhere classified, right shoulder Category: Medical Plan: S/P right rotator cuff surgery with Dr. Palomino in October 2022 States that her right shoulder symptoms have improved with physical therapy but still flare up on and off States that her left shoulder has also been bothering her lately and orthopedics is contemplating sending her for an MRI of her left shoulder as well Follow up with orthopedics as scheduled (7) Rosacea: Code(s): L71.9 - Rosacea, unspecified Category: Medical Plan: Follow up with dermatology as scheduled/as needed (8) Insomnia: Code(s): G47.00 - Insomnia, unspecified Category: Medical Qualifiers: Insomnia type: unspecified Qualified Code(s): G47.00 - Insomnia, unspecified Plan: Sleep hygiene reinforced Patient states that Lorazepam helps when needed She has been advised again that she can also try taking OTC Melatonin either 3 mg or 6 mg Q HS PRN if she wants to (9) Anxiety: Code(s): F41.9 - Anxiety disorder, unspecified Category: Medical Plan: Continue Lorazepam 0.5 mg BID PRN (10) Depression: Comment: hx of, not current Code(s): F32.A - Depression, unspecified Category: Medical Qualifiers: Depression Type: major depressive disorder Major depression recurrence: recurrent Active/Remission status: currently active Major depression episode severity: unspecified Qualified Code(s): F33.9 - Major depressive disorder, recurrent, unspecified Plan: Stable - states that exercising regularly helps her manage her depression She has refused offer to start her on Rx in the past and continues to decline - prefers not to take any more Rx as much as possible (11) Overweight (BMI 25.0-29.9): Code(s): E66.3 - Overweight Category: Medical Plan: Reinforced diet/exercise as tolerated/lose weight (12) Cervical cancer screening: Code(s): Z12.4 - Encounter for screening for malignant neoplasm of cervix Category: Medical Plan: Pap smear done today Pelvic exam normal Plan As requested, flu vaccine given today Follow up in 6 months Orders: Orders Lipid Panel Today E78.00 - Pure hypercholesterolemia, unspecified, Z00.00 - Encounter for general adult medical examination without abnormal findings Vitamin D 25-OH Total Today E55.9 - Vitamin D deficiency, unspecified, Z00.00 - Encounter for general adult medical examination without abnormal findings Collagen Crosslinks NTX Today M81.0 - Age-related osteoporosis without current pathological fracture Vitamin B12 and Folate Today E53.8 - Deficiency of other specified B group vitamins Influenza 0078-3732 Immunization Today Z23 - Encounter for immunization Complete Blood Count Auto Diff Today D64.9 - Anemia, unspecified, Z00.00 - Encounter for general adult medical examination without abnormal findings Comprehensive [place]. Panel Fast Today E78.00 - Pure hypercholesterolemia, unspecified, Z00.00 - Encounter for general adult medical examination without abnormal findings TSH reflex Free T4 Today E78.00 - Pure hypercholesterolemia, unspecified, Z00.00 - Encounter for general adult medical examination without abnormal findings UA CC w/rflx Micro + Cult Today R30.0 - Dysuria, Z00.00 - Encounter for general adult medical examination without abnormal findings Pap Smear Today Z12.4 - Encounter for screening for malignant neoplasm of cervix Medications: New 2 calcium carbonate (Oyster Shell Calcium 500) 500 mg PO DAILY 90 days 90 tabs 3RF M81.0 - Age-related osteoporosis without current pathological fracture Refilled lorazepam 0.5 mg (1/2 x 1 mg) PO BID PRN 30 tabs 1RF anxiety
== END 2024-09-27 09:55 | disposition home or self-care (01) ==
PROVIDERS: PCP Internal Medicine; Visit Provider Internal Medicine
DX: Z00.00 Encounter for general adult medical examination without abnormal findings (principal); E78.00 Pure hypercholesterolemia, unspecified; G43.909 Migraine, unspecified, not intractable, without status migrainosus; F33.9 Major depressive disorder, recurrent, unspecified; E55.9 Vitamin D deficiency, unspecified; M81.0 Age-related osteoporosis without current pathological fracture; M75.101 Unspecified rotator cuff tear or rupture of right shoulder, not specified as traumatic; M12.811 Other specific arthropathies, not elsewhere classified, right shoulder; L71.9 Rosacea, unspecified; G47.00 Insomnia, unspecified; F41.9 Anxiety disorder, unspecified; E66.3 Overweight; Z23 Encounter for immunization

== ENCOUNTER 2024-09-28 07:09 | Outpatient (REF) | payer OTHER, SELFPAY ==
[2024-09-28 07:46] LABS: MANUAL DIFF FLAG NO
[2024-09-28 08:04] LABS: Basophils Percent Auto 0.9 % (0-2); Eosinophils Absolute Auto 0.4 X10*3/uL (0.0-0.4); Eosinophils Percent Auto 9.5 % (0-4); Hematocrit 44.6 % (37.0-47.0); Hemoglobin 14.6 g/dl (12.0-16.0); Imm Gran Abs Auto 0.01 X10*3/uL (0.00-0.03); Imm Gran Pct Auto 0.2 % (0.0-0.4); Lymphocytes Absolute Auto 1.8 X10*3/uL (1.2-4.9); Lymphocytes Percent Auto 39.2 % (20-40); Mean Corpuscular HGB Conc 32.7 g/dl (31.0-35.0); Mean Corpuscular Hemoglobin 27.4 pg (27.0-33.0); Mean Corpuscular Volume 83.8 fL (80.0-98.0); Mean Platelet Volume 10.2 fL (9.4-12.3); Monocytes Absolute Auto 0.4 X10*3/uL (0.1-1.2); Monocytes Percent Auto 9.7 % (2-11); Neutrophils Absolute Auto 1.8 x10*3/uL (2.0-8.3); Neutrophils Percent Auto 40.5 % (45-73); Platelet Count 253 X10*3/uL (160-400); Red Blood Count 5.32 X10*6/uL (4.20-5.50); Red Cell Distribution Width 13.1 % (11.0-16.0); White Blood Count 4.5 X10*3/uL (4.8-10.8)
[2024-09-28 08:41] LABS: Alanine Aminotransferase 18 U/L (0-31); Albumin Level 4.4 g/dL (3.5-5.0); Alkaline Phosphatase 101 U/L (39-117); Anion Gap 15 (12-20); Aspartate Amino Transferase 28 U/L (5-31); Bilirubin Total 0.6 mg/dL (0.0-1.0); Blood Urea Nitrogen 14 mg/dL (9-16); Carbon Dioxide 26 mmol/L (22-29); Chloride 105 mmol/L (96-108); Cholesterol 254 mg/dL (<200); Estimated Glomerular Filt Rate > 60; Glucose Fasting 85 mg/dL (60-99); HDL Cholesterol 128 mg/dL (>40); LDL Cholesterol Calculated 116 mg/dL (<100); Potassium 4.3 mmol/L (3.3-5.1); Sodium 142 mmol/L (135-145); Total Protein 7.7 g/dL (6.5-8.0); Triglycerides 51 mg/dL (<150)
[2024-09-28 09:01] LABS: Vitamin D 25-OH Total 36.3 ng/mL (>30)
[2024-09-28 09:07] LABS: Folate 12.7 ng/mL (> or = 4.0); Vitamin B12 461 pg/mL (200-900)
[2024-09-28 10:57] LABS: Appearance Urine Clear; Color Urine Yellow; Glucose Urine UA Negative (Negative); Leukocyte Esterase Urine Trace (Negative); Nitrite Urine Negative (Negative); Specific Gravity - Urine <= 1.005 (1.005-1.025); UMIC TRIGGER UACC YES; Urine Blood Negative (Negative); Urine Ketones Negative (Negative); Urine Protein Negative (Neg-Trace)
[2024-09-28 11:01] LABS: Bacteria Urine None Seen (None Seen); Hyaline Casts Urine 0-2 /LPF (0-2); RBC Urine 0-2 /HPF (0-2); Squamous Epithelial Cell Urine 0-2 /HPF (0-2); WBC Urine 0-5 /HPF (0-5)
== END 2024-09-28 07:10 | disposition home or self-care (01) ==
LOC: HO.LAB 07:09
PROVIDERS: PCP Internal Medicine; Visit Provider Internal Medicine
DX: Z00.00 Encounter for general adult medical examination without abnormal findings (principal); E78.00 Pure hypercholesterolemia, unspecified; E55.9 Vitamin D deficiency, unspecified; E53.8 Deficiency of other specified B group vitamins; D64.9 Anemia, unspecified
CPT/HCPCS: 36415; 80053; 80061; 81001; 82306; 82607; 82746; 84443; 85025

== ENCOUNTER 2024-10-10 13:40 | Outpatient (REF) | payer OTHER, SELFPAY ==
--- NOTE | ~2024-10-10 | MM_ITS ---
EXAMINATION: MM DIAGNOSTIC DIGITAL BREAST TOMOSYNTHESIS, RIGHT CLINICAL INFORMATION: Diagnostic exam; follow-up one view asymmetries seen in the lateral aspect right breast, middle depth CC view. COMPARISON: Mammography: A screening mammography 09/27/2024, and prior available exams. TECHNIQUE: Digital breast tomosynthesis is performed in the following views: Full field 3-D right MLO view, as well as 3-D spot compression right CC view x2. Computer-aided diagnosis was used for this study. FINDINGS: The breasts are heterogeneously dense, which may obscure small masses (ACR BI-RADS breast composition Category c). Diagnostic views demonstrate no persistent mass or distortion in the lateral aspect right CC view, and there is no correlate on the full field MLO view. Observed findings are consistent with superimposition artifact/summation artifact of overlapping fibroglandular tissues. There are no right breast suspicious findings. MM/MM tomosynthesis added views R IMPRESSION: -There are no persistent findings right breast suspicious for malignancy. -Recommend the patient resume routine annual screening. ASSESSMENT: BI-RADS BI-RADS 1 - Negative RECOMMENDATION: 1 year F/U Results were provided to the patient at time of visit by the technologist. This patient's information was entered into a reminder system with a target due date for their next mammogram. Electronically signed by: Alirio Keyes MD 10/10/2024 02:14 PM [facility]
== END 2024-10-10 13:41 | disposition home or self-care (01) ==
LOC: HO.MAMMO 13:40
PROVIDERS: PCP Internal Medicine; Visit Provider Internal Medicine
DX: N64.89 Other specified disorders of breast (principal)
CPT/HCPCS: 77061; 77065

== ENCOUNTER → 2024-10-10 14:00 | Outpatient (BNV) | payer OTHER, SELFPAY | PROVIDERS: PCP Internal Medicine; Visit Provider Radiology Diagnostic Radiology | DX: R92.331 Mammographic heterogeneous density, right breast (principal) | CPT/HCPCS: 77061; 77065 ==

== ENCOUNTER 2024-10-14 08:35 | Outpatient (REF) | payer OTHER, SELFPAY ==
--- NOTE | ~2024-10-14 | FL_ITS ---
EXAMINATION: XR FLUOROSCOPY UPPER GI WITH AIR CLINICAL INFORMATION: Epigastric pain. Abdominal bloating. Frequent bowel movements. COMPARISON: None TECHNIQUE: Fluoroscopic air contrast upper GI examination was performed utilizing standard techniques with thin and thick barium and effervescent granules. Numerous spot images were obtained. FINDINGS: Dual and single contrast images of the esophagus demonstrate normal caliber, contour, and mucosal pattern. No evidence of stricture, mass, or ulcerations identified. Esophageal peristalsis was normal. Surgical clips are present in the upper quadrant. A very small type I hiatal hernia is present. No significant gastroesophageal reflux was seen during the course of the examination and on reflux views. Dual contrast and single contrast images of the stomach demonstrated normal contour and mucosal pattern without evidence of mass, ulceration, or other abnormality. Contrast freely passed into the gastric antrum and duodenal bulb without delay. Single and air-contrast images of the duodenal bulb demonstrate no abnormality. The duodenal sweep has a normal appearance, course, and mucosal fold appearance. The imaged proximal jejunum has a normal fold pattern and caliber. There is rapid transit of the barium column, with the distal ileum/right colon opacified in less than 10 minutes. There is dilution of the barium as it passes distally to the colon. No definite abnormal mucosal pattern. There are a few small bowel diverticula noted. FLUOROSCOPY TIME: 5 minutes 57 seconds Number of Spot Images: 8 Number of Cine: 15 DOSE AREA PRODUCT: [id number] uGy-m2 (microgray-meter squared) FL/FL upper GI w air IMPRESSION: 1. Very small type I hiatal hernia. 2. Status postcholecystectomy. 3. Rapid transit of the barium column with the distal ileum/right colon opacified in less than 10 minutes. The contrast becomes very dilute as it passes distally. Given this and patient's symptoms of abdominal bloating, frequent bowel movements, findings could suggest underlying malabsorption disorder. This procedure was performed by Danyel Bailey PA-C, and supervised by Dr. Keyes Electronically signed by: Alirio Keyes MD 10/15/2024 02:07 PM MARIBEL
== END 2024-10-14 08:36 | disposition home or self-care (01) ==
LOC: HO.XRAY 08:35
PROVIDERS: PCP Internal Medicine; Visit Provider Internal Medicine
DX: R10.13 Epigastric pain (principal)
CPT/HCPCS: 74246

== ENCOUNTER → 2024-10-14 08:37 | Outpatient (BNV) | payer OTHER, SELFPAY | PROVIDERS: PCP Internal Medicine; Visit Provider Physician Assistant Surgical | DX: K44.9 Diaphragmatic hernia without obstruction or gangrene (principal) | CPT/HCPCS: 74246 ==

== ENCOUNTER 2025-02-03 08:22 | Outpatient (REF) | payer BC, SELFPAY ==
--- NOTE | ~2025-02-03 | XR_ITS ---
EXAMINATION: XR SHOULDER 2 OR MORE VIEWS LEFT HISTORY: M25.519 - Pain in unspecified shoulder COMPARISON: Comparison is made with the prior examination dated 08/04/2023. FINDINGS: Three views of the left shoulder are submitted. Osseous mineralization is normal. There is no fracture or dislocation. The glenohumeral joint is maintained. There is marked narrowing of the AC joint. The soft tissues are unremarkable. XR/XR shoulder LT min 2V IMPRESSION: Mild narrowing of the AC joint without change. Electronically signed by: Alexander Lopez MD 02/04/2025 07:59 AM EDT
== END 2025-02-03 08:23 | disposition home or self-care (01) ==
LOC: HO.HOSX 08:22
PROVIDERS: Visit Provider Physician Assistant
DX: M25.511 Pain in right shoulder (principal); M75.102 Unspecified rotator cuff tear or rupture of left shoulder, not specified as traumatic
CPT/HCPCS: 20610; 73030; J1010; J2003

== ENCOUNTER 2025-02-03 14:45 | Outpatient (AMB) | payer BC, SELFPAY ==
--- NOTE | 2025-02-03 15:00 | MHC.OFFVIS ---
Vital Signs 02/03/25 15:14 Height 5 ft 2 in Weight 146 lb BMI 26.7 Intake Visit Reasons: OV-LT shoulder inj last inj 08/04/23 Intake Note: Eboni is a 59 year old female who presents today for a follow up visit of her painful arc syndrome of left shoulder. Patient received a left shoulder injection on 08/04/23 reports she would like to repeat this injection today. She states that her pain is moving to her neck and down her spine. Patient would like to know how her x rays show. Hx of right rotator cuff repair DOS: 11/16/2022 w/ Dr Kevin Palomino. Allergies amoxicillin [AMOXICILLIN] Allergy (Severe, Verified 02/03/25 15:14) RASH Penicillins Allergy (Severe, Verified 02/03/25 15:14) Rash HPI HPI OV-LT shoulder inj last inj 08/04/23: Details: Ms. Cobian is a 59-year-old female who presents the office today for ongoing left shoulder pain. She last received an injection in 08/04/2023 which gave her great relief. She is looking for repeat injection today. [facility] Medical History (Updated 09/27/24 @ 09:28 by North Reynolds MD) Osteoporosis Patellofemoral pain syndrome Diverticular disease Overweight (BMI 25.0-29.9) Depression Insomnia Rosacea Vitamin D deficiency Chronic recurrent major depressive disorder Unspecified hemorrhoids Anxiety Hyperlipidemia, unspecified Migraine Surgical History S/P colonoscopy (01/16/24) S/P rotator cuff repair (~11/16/22) Hx laparoscopic cholecystectomy H/O colonoscopy (~06/2018) H/O tubal ligation Family History Father CVD (cardiovascular disease) Diabetes mellitus HTN (hypertension) Mother Diabetes mellitus HTN (hypertension) Social History Housing: House Alcohol intake: former Patient Tobacco Use Status: Never used Tobacco e-Cigarette/Vaping Use: Never Used Second Hand Smoke Exposure: No service: No Current occupational status: employed 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 Cognitive needs: No Hearing needs: No Vision needs: Yes Review of Systems Const All systems reviewed & are unremarkable except as noted in HPI and below Physical Exam Vital Signs: BMI result Body Mass Index 26.7 Const General: cooperative, healthy appearing and no acute distress Resp Effort & Inspection: normal respiratory effort and able to speak in complete sentences Cardio Rate: regular rate Peripheral pulses: Peripheral pulses 2+ throughout GI Palpation (GI): Soft to palpation Skin Lesions: no lesions Rashes: no rashes Extrem Other: Left shoulder: Normal to inspection. No ecchymosis, erythema, or edema. Full shoulder ROM in all planes. Negative cross-body reach. 3/5 strength with empty can. Negative drop arm. NVI. Assessment & Plan Assessment & Plan (1) Painful arc syndrome of left shoulder: Code(s): M75.102 - Unspecified rotator cuff tear or rupture of left shoulder, not specified as traumatic Category: Medical Plan The patient was offered a cortisone injection in the left shoulder with 80 mg of DepoMedrol. The patient was explained the risks, benefits, and alternatives to receiving this injection. After receiving consent for the injection, the patient had the procedure done while in the office today. The patient tolerated the procedure well with no complications. Follow-up will be p.r.n., or sooner if needed Orders: Orders XR shoulder LT min 2V Today M25.519 - Pain in unspecified shoulder Coding Level of Care Code Est Pt Level 3 (08926) Diagnoses Painful arc syndrome of left shoulder M75.102
[2025-02-03 15:14] VITALS: BMI 26.7
== END 2025-02-03 15:25 | disposition home or self-care (01) ==
LOC: HO.HOS 14:45
PROVIDERS: PCP Internal Medicine; Visit Provider Physician Assistant
DX: M75.102 Unspecified rotator cuff tear or rupture of left shoulder, not specified as traumatic (principal)
CPT/HCPCS: 20610; 99213

== ENCOUNTER → 2025-02-03 14:50 | Outpatient (BNV) | payer BC, SELFPAY | PROVIDERS: Visit Provider Radiology Diagnostic Radiology | DX: M25.512 Pain in left shoulder (principal) | CPT/HCPCS: 73030 ==

== ENCOUNTER 2025-02-07 13:14 | Outpatient (REF) | payer BC, SELFPAY ==
--- NOTE | ~2025-02-07 | XR_ITS ---
CLINICAL HISTORY: M79.671 - Pain in right foot Three views of the right foot. COMPARISON: None FINDINGS: No ankle joint effusion. Small plantar calcaneal spur. Normal tarsometatarsal alignment. Tarsals, metatarsals and phalanges appear intact. IMPRESSION: 1. No radiographic evidence of acute injury to the right foot. This document has been electronically signed by: Blu Meléndez MD on 02/10/2025 16:20:24
== END 2025-02-07 13:15 | disposition home or self-care (01) ==
LOC: HO.XRAY 13:14
PROVIDERS: PCP Internal Medicine
DX: M79.671 Pain in right foot (principal); K90.9 Intestinal malabsorption, unspecified; M81.0 Age-related osteoporosis without current pathological fracture
CPT/HCPCS: 73630; 96127

== ENCOUNTER 2025-02-07 13:14 | Outpatient (AMB) | payer BC, SELFPAY ==
[2025-02-07 13:18] VITALS: BP 130/90; PULSE 78; TEMP 36.9; O2SAT 97; BMI 27.4
--- NOTE | 2025-02-07 13:18 | A.OFFPC_ITS ---
Vital Signs 02/07/25 13:18 Height 5 ft 2 in Weight 149 lb 12.8 oz BMI 27.4 BP 130/90 H Blood Pressure Location Lt brachial Position Sitting Pulse 78 Pulse Source Pulse Oximeter Temp 98.4 F Temp Source Oral Pulse Oximetry (%) 97 Oxygen Delivery Method Room Air Intake Visit Reasons: Foot Pain Air Valve Repairer Required: No Accompanied by: Self / Same As Patient Allergies amoxicillin [AMOXICILLIN] Allergy (Severe, Verified 02/07/25 13:46) RASH Penicillins Allergy (Severe, Verified 02/07/25 13:46) Rash Medication List - Last Reconciled 02/07/25 by LETICIA Giraldo acetaminophen (Tylenol Extra Strength) 1,000 mg PO Q6H PRN calcium carbonate (Oyster Shell Calcium 500) 500 mg PO DAILY 90 days cholecalciferol (vitamin D3) 50 mcg PO DAILY ibuprofen 800 mg PO TID lorazepam 0.5 mg (1/2 x 1 mg) PO BID PRN Tobacco use date assessed: 02/07/25 Dental Screening Dental Screen Date: 02/07/25 Did you have a dental visit in the last 12 months?: Yes Did you have a dental problem in the last 6 months where you did not have access to dental care?: No Was dental information given to patient?: Patient has dentist HPI Foot Pain HPI Details The patient is a 59-year-old female past medical history of osteoporosis epigastric abdominal pain, diverticulitis disease, painful arc syndrome of left shoulder, status post rotator cuff repair in 2021. Patient of Dr. Reynolds The patient is presenting with complaints of right foot pain, specifically on the top of her foot Reports that this has been going on for 2 months now She has been massaging her foot with no relief and taking Tylenol OTC-no relief Patient reports she has a history of osteoporosis Patient is requesting to be started on diclofenac sodium tablets Patient reports that she had a GI series/labs and urine tests done and she would like to know the results GI series showed malabsorption, discussed with Dr. Reynolds who recommended the patient be referred to GI [facility] Medical History (Updated 02/17/25 @ 15:53 by LETICIA Giraldo) Osteoporosis Patellofemoral pain syndrome Diverticular disease Overweight (BMI 25.0-29.9) Depression Insomnia Rosacea Vitamin D deficiency Chronic recurrent major depressive disorder Unspecified hemorrhoids Anxiety Hyperlipidemia, unspecified Migraine Surgical History S/P colonoscopy (01/16/24) S/P rotator cuff repair (~11/16/22) Hx laparoscopic cholecystectomy H/O colonoscopy (~06/2018) H/O tubal ligation Family History Father CVD (cardiovascular disease) Diabetes mellitus HTN (hypertension) Mother Diabetes mellitus HTN (hypertension) Social History Housing: House Alcohol intake: former Patient Tobacco Use Status: Never used Tobacco e-Cigarette/Vaping Use: Never Used Second Hand Smoke Exposure: No service: No Current occupational status: employed 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 Cognitive needs: No Hearing needs: No Vision needs: Yes Questionnaire PHQ-9 Over the last 2 weeks, how often have you been bothered by any of the following problems? 1. Little interest or pleasure in doing things: not at all 2. Feeling down, depressed, or hopeless: not at all 3. Trouble falling or staying asleep, or sleeping too much: not at all 4. Feeling tired or having little energy: not at all 5. Poor appetite or overeating: not at all 6. Feeling bad about yourself - or that you are a failure or have let yourself or your family down: not at all 7. Trouble concentrating on things, such as reading the newspaper or watching television: not at all 8. Moving or speaking so slowly that other people could have noticed. Or the opposite - being so fidgety or restless that you have been moving around a lot more than usual: not at all 9. Thoughts that you would be better off or of hurting yourself in some way: not at all Total score: 0 Depression Screening Interpretation: Negative Depression Screening Done: Yes 65228 - PHQ-9 Billing: Yes Source: Developed by Drs. Alexander Shipley, Ceci Bob, Marvel Marrero and colleagues, with an educational amarjit from [employer]. Thrive Questionnaire Date Thrive assessed: 02/07/25 I am a: Patient What is your living situation today?: I have a steady place to live Within the past 12 months, did the food you bought not last and you didn't have the money to get more?: Never true Within the past 12 months, did you worry whether your food would run out before you got money to buy more?: Never true Do you have trouble paying for medicines?: No Do you have trouble getting transportation to medical appointments?: No Do you have trouble paying your heating and electricity bill?: No Do you have trouble taking care of your child, family member or friend?: No Do you have trouble with day-to-day activities such as bathing, preparing meals, shopping, managing finances, etc.?: No Are you currently unemployed and looking for a job?: No Are you interested in more education?: No Please select the resources that you would like help with: None Currently or been in a relationship where the following occur: No concerns reported THRIVE Score: 0 AUDIT C Alcohol Use Questionnaire (AUDIT-C) 2. How many drinks containing alcohol do you have on a typical day when you are drinking?: 1 or 2 3. How often do you have six or more drinks on one occasion?: Never Total Score: 0 CASSANDRA-7 AMB Questionnaire CASSANDRA-7 Date CASSANDRA - 7 assessed: 02/07/25 Feeling nervous, anxious, or on edge: 0 = Not at all Not being able to stop or control worryin = Not at all Worrying too much about different things: 0 = Not at all Trouble relaxin = Not at all Being so restless that it is hard to sit still: 0 = Not at all Becoming easily annoyed or irritable: 0 = Not at all Feeling afraid as if something awful might happen: 0 = Not at all Total CASSANDRA-7 score (0-4 normal; 5-9 mild; 10-14 moderate; 15-21 severe): 0 Source: Developed by Drs. Alexander Shipley, Ceci Bob, Marvel Marrero and colleagues, with an educational amarjit from [employer] CASSANDRA-7 Assessment Billing CASSANDRA-7 Assessment Tool: CASSANDRA-7 Assessment 10901 Review of Systems Const Denies headache(s) Eyes Denies loss of vision ENT Denies vertigo, Denies dizziness, Denies headache(s) and Denies sore throat Card Denies chest pain, Denies leg edema and Denies lightheadedness Resp Denies cough, Denies hemoptysis and Denies wheezing GI Denies abdominal pain, Denies melena, Denies constipation, Denies diarrhea and Denies vomiting Denies urinary frequency, Denies dysuria and Denies urinary urgency Musc Denies arthralgias, Denies joint swelling, Denies numbness, Denies tingling and Reports other (Top of right foot pain) Neuro Denies Abnormal speech present, Denies behavioral changes, Denies vertigo, Denies dizziness, Denies headache(s), Denies loss of vision, Denies memory loss, Denies numbness and Denies tingling Psych Denies anxiety, Denies behavioral changes, Denies depression, Denies memory loss and Denies panic attacks William/Lymph Denies easy bleeding and Denies easy bruising Aller/Immun Denies wheezing Physical exam (Primary Care) Vital Signs: Last Vital Signs Temp 98.4 F 02/07/25 13:18 Pulse 78 02/07/25 13:18 BP 130/90 H 02/07/25 13:18 Pulse Ox 97 02/07/25 13:18 Oxygen Delivery Method Room Air 02/07/25 13:18 BMI result Body Mass Index 27.4 Tobacco/Smoking Status: Tobacco use Status Tobacco use date assessed 02/07/25 02/07/25 13:28 Patient Tobacco Use Status Never used Tobacco 02/07/25 13:28 e-Cigarette/Vaping Use Never Used 02/07/25 13:28 PHQ-9: PHQ-9 Score PHQ-9: Total score 0 02/07/25 13:50 Depression Screening Interpretation: Negative Thrive Assessment: Date of Thrive Assessment Date Thrive assessed 02/07/25 02/07/25 13:28 Currently or been in a relationship where the following occur: No concerns reported Const General: healthy appearing, no acute distress, alert and awake Nutritional Appearance: well nourished Orientation/consciousness: oriented to person, oriented to place and oriented to time HENMT Ears: TM's normal bilaterally General nose exam: Normal nasal mucous membranes and turbinates present Eyes Conjunctivae: conjunctivae normal Sclerae: sclerae normal Pupils: Equal, round and reactive pupils present Neck Neck: Yes no lymphadenopathy and Yes no JVD Thyroid: Thyroid normal Carotids: no bruits Resp Effort & Inspection: normal respiratory effort and not tachypneic Auscultation: no crackles, no rales, no rhonchi and no wheezes Cardio Rate: regular rate Rhythm: regular rhythm Heart sounds: no murmurs and normal S1 and S2 GI Palpation (GI): Soft to palpation, nontender, no hepatomegaly and no splenomegaly Auscultation: normal bowel sounds Skin General skin exam: no rashes or lesions noted and dry skin Neuro General: oriented to person, oriented to place and oriented to time Cranial nerves: Yes Equal, round and reactive pupils present Speech: No Abnormal speech present Gait exam (Neuro): Normal gait present Motor exam (neuro): no tremor noted Extrem Right upper extremity: full ROM Left upper extremity: full ROM Right lower extremity: full ROM and foot Details: normal capillary refill, tenderness, toes with normal ROM and no edema; no unusual warmth; no edema Left lower extremity: full ROM; no edema Psych Mental Status: mental status grossly normal Speech and movement: Normal speech and movement present Affect: normal affect Attitude: cooperative Thought process: Normal thought process present Coding Level of Care Code Est Pt Level 3 (46519) Diagnoses Right foot pain M79.671 Intestinal malabsorption, unspecified type K90.9 Intestinal malabsorption type: unspecified Additional Codes CASSANDRA-7 Assessment Billing - CASSANDRA-7 Assessment Tool: CASSANDRA-7 Assessment 33741 ([id number]) PHQ-9 - 21587 - PHQ-9 Billing: Yes ([id number]) Time Spent (min) 29 Assessment & Plan Assessment & Plan (1) Right foot pain: Code(s): M79.671 - Pain in right foot Category: Medical Plan: Diclofenac sodium 50 mg t.i.d. ordered per patient request. Discussed with the patient that she can not take any other NSAIDs while on this medication. Patient verbalized understanding and said that she used to be on meloxicam that did not work for her and it was the same case. Right foot x-ray ordered to further evaluate (2) Malabsorption: Code(s): K90.9 - Intestinal malabsorption, unspecified Category: Medical Qualifiers: Intestinal malabsorption type: unspecified Qualified Code(s): K90.9 - Intestinal malabsorption, unspecified Plan: GI series completed 10/14/2024 suggest malabsorption disorder. Referred to GI for further evaluation Orders: Orders XR foot RT min 3V 02/07/25 M79.671 - Pain in right foot Medications: New diclofenac sodium 50 mg PO TID PRN 90 tabs 2RF pain 30 days M25.641 - Stiffness of right hand, not elsewhere classified
== END 2025-02-07 14:14 | disposition home or self-care (01) ==
LOC: HO.HMCH 13:15
PROVIDERS: PCP Internal Medicine
DX: M79.671 Pain in right foot (principal); K90.9 Intestinal malabsorption, unspecified

== ENCOUNTER → 2025-02-07 14:23 | Outpatient (BNV) | payer BC, SELFPAY | PROVIDERS: PCP Internal Medicine; Visit Provider Radiology Diagnostic Radiology | DX: M79.671 Pain in right foot (principal) | CPT/HCPCS: 73630 ==

== ENCOUNTER 2025-02-19 14:31 | Outpatient (REF) | payer BC, SELFPAY ==
[2025-02-19 17:30] LABS: C Reactive Protein 0.43 mg/dL (< or = 0.50); Lipase 38 U/L (8-78); Magnesium 2.3 mg/dL (1.6-2.6)
[2025-02-20 21:13] LABS: Transglutaminase IgA 1.2 U/mL
[2025-02-25 09:24] LABS: H Pylori Breath Test Positive (Negative)
== END 2025-02-19 14:32 | disposition home or self-care (01) ==
LOC: HO.LAB 14:31
PROVIDERS: PCP Internal Medicine; Visit Provider Nurse Practitioner Family
DX: R10.9 Unspecified abdominal pain (principal); K58.9 Irritable bowel syndrome, unspecified; N18.9 Chronic kidney disease, unspecified; K21.9 Gastro-esophageal reflux disease without esophagitis
CPT/HCPCS: 36415; 83013; 83690; 83735; 86140; 86364

== ENCOUNTER 2025-02-19 14:31 | Outpatient (AMB) | payer BC, SELFPAY ==
--- NOTE | 2025-02-19 14:47 | MHC.OFFVIS ---
Vital Signs 02/19/25 14:54 Height 5 ft 2 in Weight 147 lb BMI 26.9 BP 120/86 Blood Pressure Location Rt brachial Position Sitting Pulse 78 Pulse Source Pulse Oximeter Pulse Oximetry (%) 96 Oxygen Delivery Method Room Air Intake Visit Reasons: Intestinal Malabsorption - 1 YR FUV Intake Note: ESTABLISHED PATIENT for malabsorption. S/P GI series per Dr. Choi. AMOS w/ Raegan 01/2024 [place] [facility] [place] Chief Complaint; C/O intermittent / mixed constipation and diarrhea, bloating, no signs of bleeding per rectum, generalized abd pain and cramping. Pt reports sx have been worse since starting calcium per PCP. No additional concerns at this time. 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 Diverticulosis found, high-fiber diet recommended. List of food high in fiber given to patient. Patient can also start probiotic daily. She will follow-up on as needed basis. Patient is agreeable to this plan and verbalizes understanding of instructions. She was given the opportunity to ask questions and all questions answered. ? Thank you for allowing me to participate in her care TODAY'S VISIT UPPER GI SERIES 10/14/2024 IMPRESSION: 1. Very small type I hiatal hernia. 2. Status postcholecystectomy. 3. Rapid transit of the barium column with the distal ileum/right colon opacified in less than 10 minutes. The contrast becomes very dilute as it passes distally. Given this and patient's symptoms of abdominal bloating, frequent bowel movements, findings could suggest underlying malabsorption disorder. [facility] Medical History Osteoporosis Patellofemoral pain syndrome Diverticular disease Overweight (BMI 25.0-29.9) Depression Insomnia Rosacea Vitamin D deficiency Chronic recurrent major depressive disorder Unspecified hemorrhoids Anxiety Hyperlipidemia, unspecified Migraine Surgical History S/P colonoscopy (01/16/24) S/P rotator cuff repair (~11/16/22) Hx laparoscopic cholecystectomy H/O colonoscopy (~06/2018) H/O tubal ligation Family History Father CVD (cardiovascular disease) Diabetes mellitus HTN (hypertension) Mother Diabetes mellitus HTN (hypertension) Social History Housing: House Alcohol intake: former Patient Tobacco Use Status: Never used Tobacco e-Cigarette/Vaping Use: Never Used Second Hand Smoke Exposure: No service: No Current occupational status: employed 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 Cognitive needs: No Hearing needs: No Vision needs: Yes Review of Systems Const Denies weight gain and Denies weight loss ENT Reports no additional complaints, Denies dysphagia and Denies odynophagia Card Reports no additional complaints Resp Reports no additional complaints GI Reports abdominal pain (Cramping), Denies belching, Denies melena, Reports bloating, Denies change in bowel habits, Reports constipation, Denies dysphagia, Denies excessive flatus, Reports dyspepsia, Denies heartburn, Denies diarrhea, Reports loose stools, Denies nausea, Denies odynophagia and Denies vomiting Reports no additional complaints Musc Reports no additional complaints Neuro Reports no additional complaints Psych Reports no additional complaints Endo Reports no additional complaints Physical Exam Vital Signs: Last Vital Signs Pulse 78 02/19/25 14:54 BP 120/86 02/19/25 14:54 Pulse Ox 96 02/19/25 14:54 Oxygen Delivery Method Room Air 02/19/25 14:54 BMI result Body Mass Index 26.9 Const General: healthy appearing, no acute distress and well developed Nutritional Appearance: obese Orientation/consciousness: patient oriented x3 Resp Effort & Inspection: normal respiratory effort, able to speak in complete sentences, no tracheal deviation and symmetric chest movement Auscultation: clear to auscultation bilaterally Cardio Rate: regular rate GI Inspection: Yes normal to inspection, No distended and Yes obesity Palpation (GI): Soft to palpation, not firm, nontender and No hepatosplenomegaly present Auscultation: normal bowel sounds General: Yes no CVA tenderness Back/Spine/Pelvis Back: no CVA tenderness Skin General skin exam: elasticity normal, turgor normal and dry skin Neuro General: patient oriented x3 Psych Appearance: grossly normal Mental Status: mental status grossly normal Assessment & Plan Assessment & Plan (1) Epigastric abdominal pain: Code(s): R10.13 - Epigastric pain Category: Medical (2) Postprandial abdominal bloating: Code(s): R14.0 - Abdominal distension (gaseous) (3) Postprandial diarrhea: Code(s): K52.9 - Noninfective gastroenteritis and colitis, unspecified (4) Post-cholecystectomy syndrome: Code(s): K91.5 - Postcholecystectomy syndrome Plan Will check for malabsorption, check for celiac. Fecal calprotectin, CRP, H pylori breath test in the office today. Patient reports epigastric pain as well will check lipase. Patient reports postprandial loose stools we will do GI panel as well fecal fat qualitative and pancreatic last days to rule out pancreatic insufficiency. Patient is status post cholecystectomy, possible post cholecystectomy syndrome. Patient was encouraged to eat a low fat meals as even healthy fat like avocado can worsen her symptoms. We will discuss low FODMAP diet. List of food recommended as well as list of food to avoid given to patient. Patient will start taking 1-2 fiber supplements daily. I will send Citrucel in. However patient can take senna to help her empty her bowels. Patient was encouraged to increase fluid intake and activity to promote better bowel motility. Reviewed report from her upper GI study possible that contrast was diluted by bile. Patient might require to take bile salt binder is like Questran. Will await for lab results and re-evaluate patient symptoms after changing her diet. Patient has been dealing with this ever since she had her cholecystectomy for many years. Unlikely malabsorption. Patient denies any weight loss in the past few years. F/u in 6 months sooner if needed. Patient is agreeable to this plan and verbalizes understanding of instructions. She was given the opportunity to ask questions and all questions answered. Thank you for allowing me to participate in her care Orders: Orders Transglutaminase IgA Today R10.9 - Unspecified abdominal pain Fecal Fat Qualitative Today R19.7 - Diarrhea, unspecified Calprotectin, Fecal Today R15.9 - Full incontinence of feces C Reactive Protein Today K58.9 - Irritable bowel syndrome, unspecified H Pylori Breath Test Today K21.9 - Gastro-esophageal reflux disease without esophagitis Lipase Today R10.9 - Unspecified abdominal pain Magnesium Today N18.9 - Chronic kidney disease, unspecified GI Panel Today R19.7 - Diarrhea, unspecified Pancreatic Elastase-1 Today R10.9 - Unspecified abdominal pain Medications: New methylcellulose (laxative) (Citrucel) take it with full glass of water 1,000 mg (2 x 500 mg) PO DAILY 60 tabs 2RF K52.9 - Noninfective gastroenteritis and colitis, unspecified sennosides (Natural Senna Laxative) 17.2 mg (2 x 8.6 mg) PO BEDTIME 60 tabs 3RF constipation K59.00 - Constipation, unspecified Coding Level of Care Code Est Pt Level 4 (80143) Diagnoses Epigastric abdominal pain R10.13 Postprandial abdominal bloating R14.0 Postprandial diarrhea K52.9 Post-cholecystectomy syndrome K91.5 Time Spent (min) 40 Comment 25 minutes spent with patient and additional 15 minutes spent reviewing her records
[2025-02-19 14:54] VITALS: BP 120/86; PULSE 78; O2SAT 96; BMI 26.9
== END 2025-02-19 15:22 | disposition home or self-care (01) ==
LOC: HO.HGI 14:32
PROVIDERS: PCP Internal Medicine; Visit Provider Nurse Practitioner Family
DX: R10.13 Epigastric pain (principal); R14.0 Abdominal distension (gaseous); K52.9 Noninfective gastroenteritis and colitis, unspecified; K91.5 Postcholecystectomy syndrome
CPT/HCPCS: 99214

== ENCOUNTER 2025-02-28 06:30 | Outpatient (REF) | payer BC, SELFPAY ==
[2025-02-28 12:52] LABS: Adenovirus F 40/41 Not Detected (Not Detect.); Astrovirus Not Detected (Not Detect.); Campylobacter Not Detected (Not Detect.); Cryptosporidium Not Detected (Not Detect.); Cyclospora cayetanensis Not Detected (Not Detect.); E. coli EAEC Not Detected (Not Detect.); E. coli EPEC Not Detected (Not Detect.); E. coli ETEC Not Detected (Not Detect.); E. coli STEC Not Detected (Not Detect.); Entamoeba histolytica Not Detected (Not Detect.); Giardia lamblia Not Detected (Not Detect.); Plesiomonas shigelloides Not Detected (Not Detect.); Rotavirus A Not Detected (Not Detect.); Salmonella Not Detected (Not Detect.); Sapovirus Not Detected (Not Detect.); Shigella sp./EIEC Not Detected (Not Detect.); Vibrio Not Detected (Not Detect.); Vibrio Cholerae Not Detected (Not Detect.); Yersinia enterocolitica Not Detected (Not Detect.)
[2025-02-28 13:15] LABS: Norovirus GI/GII Detected (Not Detect.)
[2025-03-05 22:48] LABS: Fecal Fat Qualitative Normal (Normal)
[2025-03-06 17:39] LABS: Calprotectin, Fecal 8 mcg/g
[2025-03-13 01:39] LABS: Pancreatic Elastase-1 267 mcg/g (>200)
== END 2025-02-28 06:31 | disposition home or self-care (01) ==
LOC: HO.LNP 06:30
PROVIDERS: Visit Provider Nurse Practitioner Family
DX: R19.7 Diarrhea, unspecified (principal); R15.9 Full incontinence of feces; R10.9 Unspecified abdominal pain
CPT/HCPCS: 82656; 82705; 83993; 87507

== ENCOUNTER 2025-03-28 09:37 | Outpatient (AMB) | payer BC, SELFPAY ==
[2025-03-28 09:44] VITALS: BP 118/70; PULSE 73; O2SAT 97; BMI 26.7
--- NOTE | 2025-03-28 09:44 | A.OFFPC_ITS ---
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 Required: No Accompanied by: Self / Same As Patient Allergies amoxicillin [AMOXICILLIN] Allergy (Severe, Verified 03/28/25 10:05) RASH Penicillins Allergy (Severe, Verified 03/28/25 10:05) Rash Medication List - Last Reconciled 03/28/25 by North Reynolds MD acetaminophen (Tylenol Extra Strength) 1,000 mg PO Q6H PRN bismuth subsalicylate 2 tabs PO QID 14 days calcium carbonate (Oyster Shell Calcium 500) 500 mg PO DAILY 90 days cholecalciferol (vitamin D3) 50 mcg PO DAILY diclofenac sodium 50 mg PO TID PRN 30 days doxycycline hyclate 100 mg PO BID 14 days hydrocortisone 2.5% (Proctosol HC) 1 appl [place] BID-QID PRN hydrocortisone acetate (Anucort-HC) 25 mg [place] BID ibuprofen 800 mg PO TID lorazepam 0.5 mg (1/2 x 1 mg) PO BID PRN methylcellulose (laxative) (Citrucel) 1,000 mg (2 x 500 mg) PO DAILY metronidazole 1,000 mg (2 x 500 mg) PO BID sennosides (Natural Senna Laxative) 17.2 mg (2 x 8.6 mg) PO BEDTIME Tobacco use date assessed: 03/28/25 Dental Screening Dental Screen Date: 03/28/25 Did you have a dental visit in the last 12 months?: Yes Did you have a dental problem in the last 6 months where you did not have access to dental care?: No Was dental information given to patient?: Patient has dentist HPI 6 Months f/u HPI Details Patient comes in today for her follow up visit States that she feels okay Denies any headaches or dizziness Denies any chest pains, no SOB No nausea/vomiting, no abdominal pain - states that most of her previous GI symptoms (diarrhea, abdominal pain/cramping) have been slowly improving over the past few weeks She was seen by GI and worked up and her tests came back positive for Norovirus and H. pylori; tests for celiac disease came back negative States that she was treated for H.pylori, which she had a hard time tolerating but did complete them eventually , and that she was given extensive instructions by GI on what to do regarding her diet No change in bowel habits noted She continues to experience increased pain in her right foot - would like to know how her x-rays done back in January came out Also still has some painful growth/skin lesions near her umbilical area that she states she's had for a while and would like to see someone about getting these off [facility] Medical History Osteoporosis Patellofemoral pain syndrome Diverticular disease Overweight (BMI 25.0-29.9) Depression Insomnia Rosacea Vitamin D deficiency Chronic recurrent major depressive disorder Unspecified hemorrhoids Anxiety Hyperlipidemia, unspecified Migraine Surgical History S/P colonoscopy (01/16/24) S/P rotator cuff repair (~11/16/22) Hx laparoscopic cholecystectomy H/O colonoscopy (~06/2018) H/O tubal ligation Family History Father CVD (cardiovascular disease) Diabetes mellitus HTN (hypertension) Mother Diabetes mellitus HTN (hypertension) Social History Housing: House Alcohol intake: former Patient Tobacco Use Status: Never used Tobacco e-Cigarette/Vaping Use: Never Used Second Hand Smoke Exposure: No service: No Current occupational status: employed 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 Cognitive needs: No Hearing needs: No Vision needs: Yes Questionnaire PHQ-9 Over the last 2 weeks, how often have you been bothered by any of the following problems? 1. Little interest or pleasure in doing things: not at all 2. Feeling down, depressed, or hopeless: not at all 3. Trouble falling or staying asleep, or sleeping too much: not at all 4. Feeling tired or having little energy: several days 5. Poor appetite or overeating: not at all 6. Feeling bad about yourself - or that you are a failure or have let yourself or your family down: not at all 7. Trouble concentrating on things, such as reading the newspaper or watching television: not at all 8. Moving or speaking so slowly that other people could have noticed. Or the opposite - being so fidgety or restless that you have been moving around a lot more than usual: not at all 9. Thoughts that you would be better off or of hurting yourself in some way: not at all Total score: 1 Depression Screening Interpretation: Negative Depression Screening Done: Yes 08219 - PHQ-9 Billing: Yes Source: Developed by Drs. Alexander Shipley, Ceci Bob, Marvel Marrero and colleagues, with an educational amarjit from [employer]. Thrive Questionnaire Date Thrive assessed: 03/28/25 I am a: Patient What is your living situation today?: I have a steady place to live Within the past 12 months, did the food you bought not last and you didn't have the money to get more?: Never true Within the past 12 months, did you worry whether your food would run out before you got money to buy more?: Never true Do you have trouble paying for medicines?: No Do you have trouble getting transportation to medical appointments?: No Do you have trouble paying your heating and electricity bill?: No Do you have trouble taking care of your child, family member or friend?: No Do you have trouble with day-to-day activities such as bathing, preparing meals, shopping, managing finances, etc.?: No Are you currently unemployed and looking for a job?: No Are you interested in more education?: No Please select the resources that you would like help with: None Currently or been in a relationship where the following occur: No concerns reported THRIVE Score: 0 AUDIT C Alcohol Use Questionnaire (AUDIT-C) 1. How often do you have a drink containing alcohol?: Never 3. How often do you have six or more drinks on one occasion?: Never Total Score: 0 Score Reviewed/Action Taken: Yes CASSANDRA-7 AMB Questionnaire CASSANDRA-7 Date CASSANDRA - 7 assessed: 03/28/25 Feeling nervous, anxious, or on edge: 0 = Not at all Not being able to stop or control worryin = Not at all Worrying too much about different things: 0 = Not at all Trouble relaxin = Not at all Being so restless that it is hard to sit still: 0 = Not at all Becoming easily annoyed or irritable: 0 = Not at all Feeling afraid as if something awful might happen: 0 = Not at all Total CASSANDRA-7 score (0-4 normal; 5-9 mild; 10-14 moderate; 15-21 severe): 0 Source: Developed by Drs. Alexander Shipley, Ceci Bob, Marvel Marrero and colleagues, with an educational amarjit from [employer]. Review of Systems Const Denies chills, Denies fatigue, Denies fever(s) and Denies headache(s) ENT Denies dysphagia, Denies dizziness, Denies otalgia, Denies headache(s), Denies neck pain, Denies odynophagia and Denies sore throat Card Denies chest pain, Denies irregular heart rhythm, Denies palpitations and Denies dyspnea Resp Denies chest congestion, Denies cough and Denies dyspnea GI Denies abdominal pain (previous GI symptoms have been slowly improving), Denies constipation, Denies dysphagia, Denies heartburn, Denies diarrhea, Denies nausea, Denies odynophagia and Denies vomiting Denies urinary frequency and Denies dysuria Musc Details: (+) persistent right foot pain - see HPI Denies back pain, Reports arthralgias (over both shoulders, on and off) and Denies neck pain Skin/Breast Details: (+) painful raised skin lesions near her umbilical area Denies rash Neuro Denies dizziness, Denies headache(s) and Denies paresthesias Psych Denies anxiety and Denies depression Endo Denies fatigue and Denies palpitations William/Lymph Denies easy bruising Physical exam (Primary Care) Vital Signs: Last Vital Signs Pulse 73 03/28/25 09:44 BP 118/70 03/28/25 09:44 Pulse Ox 97 03/28/25 09:44 Oxygen Delivery Method Room Air 03/28/25 09:44 BMI result Body Mass Index 26.7 Tobacco/Smoking Status: Tobacco use Status Tobacco use date assessed 03/28/25 03/28/25 09:49 Patient Tobacco Use Status Never used Tobacco 03/28/25 09:49 e-Cigarette/Vaping Use Never Used 03/28/25 09:49 PHQ-9: PHQ-9 Score PHQ-9: Total score 1 03/28/25 09:49 Depression Screening Interpretation: Negative Thrive Assessment: Date of Thrive Assessment Date Thrive assessed 03/28/25 03/28/25 09:49 Currently or been in a relationship where the following occur: No concerns reported Const General: no acute distress and alert HENMT Throat: Yes posterior oropharynx normal and Yes tonsils normal (no TP congestion) Neck Neck: Yes supple and No lymphadenopathy Thyroid: Thyroid normal Resp Auscultation: clear to auscultation bilaterally, no rales and no wheezes Cardio Rate: regular rate Rhythm: regular rhythm Heart sounds: no murmurs GI Palpation (GI): Soft to palpation and nontender Auscultation: normal bowel sounds General: Yes no CVA tenderness Back/Spine/Pelvis Back: no CVA tenderness Thoracic/Lumbar Spine: No lumbar spinal tenderness Skin Other: (+) 2 to 3 slightly reddish raised skin lesions on the abdomen near the right lower margin of the umbilical area Rashes: no rashes Extrem General: Yes no clubbing, cyanosis or edema Right lower extremity: foot Details: tenderness Location: of the plantar foot and of the calcaneus and no edema Coding Level of Care Code Est Pt Level 4 (15979) Diagnoses Pure hypercholesterolemia E78.00 Migraine without status migrainosus, not intractable, unspecified migraine type G43.909 Migraine type: unspecified Status migrainosus presence: without status migrainosus Intractability: not intractable Frequent bowel movements R19.4 Vitamin D deficiency E55.9 Age-related osteoporosis without current pathological fracture M81.0 Osteoporosis type: age-related Presence of current pathological fracture: without current pathological fracture Rotator cuff tear arthropathy of right shoulder M75.101; M12.811 Right foot pain M79.671 Skin lesion L98.9 Rosacea L71.9 Insomnia, unspecified type G47.00 Insomnia type: unspecified Anxiety F41.9 Episode of recurrent major depressive disorder, unspecified depression episode severity F33.9 Depression Type: major depressive disorder Major depression recurrence: recurrent Active/Remission status: currently active Major depression episode severity: unspecified Overweight (BMI 25.0-29.9) E66.3 Additional Codes PHQ-9 - 41658 - PHQ-9 Billing: Yes ([id number]) Assessment & Plan Assessment & Plan (1) Pure hypercholesterolemia: Code(s): E78.00 - Pure hypercholesterolemia, unspecified Category: Medical Plan: Reinforced low cholesterol diet Will recheck her fasting lipids in 6 months for follow up (2) Migraine: Code(s): G43.909 - Migraine, unspecified, not intractable, without status migrainosus Category: Medical Qualifiers: Migraine type: unspecified Status migrainosus presence: without status migrainosus Intractability: not intractable Qualified Code(s): G43.909 - Migraine, unspecified, not intractable, without status migrainosus Plan: Stable/controlled She was taking Meloxicam 15 mg QD PRN in the past but is currently back on Ibuprofen 800 mg TID for her shoulder pain Have advised her that she should take this with food and only on an as-needed basis (3) Frequent bowel movements: Code(s): R19.4 - Change in bowel habit Category: Medical Plan: Patient states that her previous GI symptoms have been gradually improving She was seen by GI and worked up and her tests came back positive for Norovirus and H. pylori; tests for celiac disease came back negative States that she was treated for H.pylori, which she had a hard time tolerating but did complete eventually States that she was also given extensive instructions by GI on what to do regarding her diet Follow up with GI as scheduled (4) Vitamin D deficiency: Code(s): E55.9 - Vitamin D deficiency, unspecified Category: Medical Plan: Continue Vitamin D3 2000 units QD Will recheck her Vitamin D level in 6 months for follow up (5) Osteoporosis: Code(s): M81.0 - Age-related osteoporosis without current pathological fracture Category: Medical Qualifiers: Osteoporosis type: age-related Presence of current pathological fracture: without current pathological fracture Qualified Code(s): M81.0 - Age- related osteoporosis without current pathological fracture Plan: Her BMD (baseline exam) done last October 2023 revealed (+) osteoporosis based on the lowest T-score value of -2.7 in the lumbar spine Her left femur BMD is normal Will check her urine NTx in 6 months for further evaluation - this was previously ordered but it does not appear that she had it done back then Have advised her that if her urine NTx is normal, then I would recommend she start taking Alendronate to help address her osteoporosis as this appears quite advanced for her age If urine NTx is abnormal, would then refer her to endocrinology for further evaluation and management Would also recommend she get lumbar spine x-rays for further evaluation at this time - x-rays reordered Reinforced fall precautions and have advised her that she should start taking OTC Calcium supplements daily and continue on her Vitamin D supplements as well Will recheck her BMD in 2 years for follow up - this will be due when she returns for her annual physical in the fall (6) Rotator cuff tear arthropathy of right shoulder: Comment: Right rotator cuff repair 11/16/2022 [place] Code(s): M75.101 - Unspecified rotator cuff tear or rupture of right shoulder, not specified as traumatic; M12.811 - Other specific arthropathies, not elsewhere classified, right shoulder Category: Medical Plan: S/P right rotator cuff surgery with Dr. Palomino in October 2022 States that her right shoulder symptoms have improved with physical therapy but still flare up on and off States that her left shoulder has also been bothering her lately and orthopedics is contemplating sending her for an MRI of her left shoulder as well Follow up with orthopedics as scheduled (7) Right foot pain: Code(s): M79.671 - Pain in right foot Category: Medical Plan: X-rays of the right foot done in January 2025 came back normal except for calcaneal spurs Will refer her to podiatry for further evaluation and management (8) Skin lesion: Code(s): L98.9 - Disorder of the skin and subcutaneous tissue, unspecified Category: Medical Plan: Will refer her to surgery for further evaluation and consideration for surgical excision of the lesions on her abdomen (9) Rosacea: Code(s): L71.9 - Rosacea, unspecified Category: Medical Plan: Follow up with dermatology as scheduled/as needed (10) Insomnia: Code(s): G47.00 - Insomnia, unspecified Category: Medical Qualifiers: Insomnia type: unspecified Qualified Code(s): G47.00 - Insomnia, unspecified Plan: Sleep hygiene reinforced Patient states that Lorazepam helps when needed She has been advised again that she can also try taking OTC Melatonin either 3 mg or 6 mg Q HS PRN if she wants to (11) Anxiety: Code(s): F41.9 - Anxiety disorder, unspecified Category: Medical Plan: Continue Lorazepam 0.5 mg BID PRN (12) Depression: Comment: hx of, not current Code(s): F32.A - Depression, unspecified Category: Medical Qualifiers: Depression Type: major depressive disorder Major depression recurrence: recurrent Active/Remission status: currently active Major depression episode severity: unspecified Qualified Code(s): F33.9 - Major depressive disorder, recurrent, unspecified Plan: Stable - states that exercising regularly helps her manage her depression She has refused offer to start her on Rx in the past and continues to decline - prefers not to take any more Rx as much as possible (13) Overweight (BMI 25.0-29.9): Code(s): E66.3 - Overweight Category: Medical Plan: Reinforced diet/exercise as tolerated/lose weight Plan To return in 6 months for her next annual physical examination Patient is reminded to get her labs done just BEFORE she returns for her annual PE Orders: Orders UA CC w/rflx Micro + Cult 6 Months R30.0 - Dysuria, Z00.00 - Encounter for general adult medical examination without abnormal findings XR lumbar spine 2-3V 6 Months M54.50 - Low back pain, unspecified Complete Blood Count Auto Diff 6 Months D64.9 - Anemia, unspecified, Z00.00 - Encounter for general adult medical examination without abnormal findings Comprehensive [place]. Panel Fast 6 Months E78.00 - Pure hypercholesterolemia, unspecified, Z00.00 - Encounter for general adult medical examination without abnormal findings Lipid Panel 6 Months E78.00 - Pure hypercholesterolemia, unspecified, Z00.00 - Encounter for general adult medical examination without abnormal findings TSH reflex Free T4 6 Months E78.00 - Pure hypercholesterolemia, unspecified, Z00.00 - Encounter for general adult medical examination without abnormal findings Vitamin D 25-OH Total 6 Months E55.9 - Vitamin D deficiency, unspecified, Z00.00 - Encounter for general adult medical examination without abnormal findings Vitamin B12 and Folate 6 Months E53.8 - Deficiency of other specified B group vitamins, Z00.00 - Encounter for general adult medical examination without abnormal findings Collagen Crosslinks NTX 6 Months M81.0 - Age-related osteoporosis without current pathological fracture Referrals 2 General Surgery Referral L98.9 - Disorder of the skin and subcutaneous tissue, unspecified Podiatry Referral M79.671 - Pain in right foot
== END 2025-03-28 10:25 | disposition home or self-care (01) ==
LOC: HO.HMCH 09:38
PROVIDERS: PCP Internal Medicine; Visit Provider Internal Medicine
DX: E78.00 Pure hypercholesterolemia, unspecified (principal); G43.909 Migraine, unspecified, not intractable, without status migrainosus; R19.4 Change in bowel habit; E55.9 Vitamin D deficiency, unspecified; M81.0 Age-related osteoporosis without current pathological fracture; M75.101 Unspecified rotator cuff tear or rupture of right shoulder, not specified as traumatic; M12.811 Other specific arthropathies, not elsewhere classified, right shoulder; M79.671 Pain in right foot; L98.9 Disorder of the skin and subcutaneous tissue, unspecified; L71.9 Rosacea, unspecified; G47.00 Insomnia, unspecified; F41.9 Anxiety disorder, unspecified; F33.9 Major depressive disorder, recurrent, unspecified; E66.3 Overweight

== ENCOUNTER → 2025-03-28 09:37 | Outpatient (BNVA) | payer BC, SELFPAY | PROVIDERS: PCP Internal Medicine; Visit Provider Internal Medicine | DX: E78.00 Pure hypercholesterolemia, unspecified (principal); G43.909 Migraine, unspecified, not intractable, without status migrainosus; R19.4 Change in bowel habit; E55.9 Vitamin D deficiency, unspecified; M81.0 Age-related osteoporosis without current pathological fracture; M75.101 Unspecified rotator cuff tear or rupture of right shoulder, not specified as traumatic; M12.811 Other specific arthropathies, not elsewhere classified, right shoulder; M79.671 Pain in right foot; L98.9 Disorder of the skin and subcutaneous tissue, unspecified; L71.9 Rosacea, unspecified; G47.00 Insomnia, unspecified; F41.9 Anxiety disorder, unspecified; F33.9 Major depressive disorder, recurrent, unspecified; E66.3 Overweight; Z68.26 Body mass index [BMI] 26.0-26.9, adult; Z79.899 Other long term (current) drug therapy | CPT/HCPCS: 96127 ==

== ENCOUNTER 2025-05-16 08:56 | Outpatient (AMB) | payer BC, SELFPAY ==
[2025-05-16 09:07] VITALS: BP 122/74; PULSE 70; BMI 27.4
--- NOTE | 2025-05-16 09:07 | MHC.OFFVIS ---
Vital Signs 05/16/25 09:07 Height 5 ft 2 in Weight 150 lb BMI 27.4 BP 122/74 Blood Pressure Location Rt brachial Position Sitting Pulse 70 Intake Visit Reasons: skin lesion near umbilical, may need excison Intake Note: Patient is seen in office for evaluation of a lump near the umbilical area. Pt c/o: scar enlarging, feels firm, painful. Present for 10yrs. Bothersome with pressure from jeans/ belt. 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 Required: No Accompanied by: Self / Same As Patient Allergies amoxicillin (AMOXICILLIN) Allergy (Severe, Verified 05/16/25 09:09) RASH Penicillins Allergy (Severe, Verified 05/16/25 09:09) Rash Medication List - Last Reconciled 05/16/25 by Jose Mckeon MD acetaminophen (Tylenol Extra Strength) 1,000 mg PO Q6H PRN bismuth subsalicylate 2 tabs PO QID 14 days calcium carbonate (Oyster Shell Calcium 500) 500 mg PO DAILY 90 days cholecalciferol (vitamin D3) 50 mcg PO DAILY hydrocortisone 2.5% (Proctosol HC) 1 appl [place] BID-QID PRN hydrocortisone acetate (Anucort-HC) 25 mg [place] BID ibuprofen 800 mg PO TID lorazepam 0.5 mg (1/2 x 1 mg) PO BID PRN methylcellulose (laxative) (Citrucel) 1,000 mg (2 x 500 mg) PO DAILY sennosides (Natural Senna Laxative) 17.2 mg (2 x 8.6 mg) PO BEDTIME HPI Comments Details: 59-year-old female patient presenting with a skin lesion located in the lower umbilicus which has been present for approximately 10 years. She reports a prior laparoscopic tubal ligation and later underwent laparoscopic cholecystectomy with an incision in the area of the skin lesion. The lesion has become hard and painful especially when laying down. She denies any bleeding or discharge from the site. She previously underwent a upper GI with a small-bowel follow-through which showed a hiatal hernia. She denies a history of infection following the surgical procedures at the umbilicus. [facility] Medical History Osteoporosis Patellofemoral pain syndrome Diverticular disease Overweight (BMI 25.0-29.9) Depression Insomnia Rosacea Vitamin D deficiency Chronic recurrent major depressive disorder Unspecified hemorrhoids Anxiety Hyperlipidemia, unspecified Migraine Surgical History S/P colonoscopy (01/16/24) S/P rotator cuff repair (~11/16/22) Hx laparoscopic cholecystectomy H/O colonoscopy (~06/2018) H/O tubal ligation Family History Father CVD (cardiovascular disease) Diabetes mellitus HTN (hypertension) Mother Diabetes mellitus HTN (hypertension) Social History Housing: House Alcohol intake: former Patient Tobacco Use Status: Never used Tobacco e-Cigarette/Vaping Use: Never Used Second Hand Smoke Exposure: No service: No Current occupational status: employed 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 Cognitive needs: No Hearing needs: No Vision needs: Yes Review of Systems Const All systems reviewed & are unremarkable except as noted in HPI and below Denies chills, Denies fever(s), Denies headache(s), Denies poor appetite and Denies weakness ENT Denies headache(s) Card Denies chest pain, Denies irregular heart rhythm, Denies palpitations and Denies dyspnea Resp Denies cough, Denies excessive phlegm production and Denies dyspnea GI Denies abdominal pain, Denies bloating, Denies change in bowel habits, Denies constipation, Denies heartburn, Denies diarrhea, Denies nausea and Denies vomiting Denies urinary frequency Musc Denies back pain, Denies muscle weakness and Denies numbness Skin/Breast Denies changing lesions and Denies unusual bruising Neuro Denies headache(s), Denies numbness, Denies paresthesias and Denies weakness Psych Denies anxiety and Denies depression Endo Denies palpitations William/Lymph Denies lymphadenopathy Physical Exam Vital Signs: Last Vital Signs Pulse 70 05/16/25 09:07 BP 122/74 05/16/25 09:07 BMI result Body Mass Index 27.4 Const General: cooperative and no acute distress Nutritional Appearance: well nourished Orientation/consciousness: patient oriented x3 Limitations: no limitations HEENT Head: Yes normocephalic and Yes atraumatic Ears: hearing grossly normal bilaterally Resp Effort & Inspection: normal respiratory effort, no audible wheezes, no cough and no respiratory distress Cardio Jugular venous distension: no JVD GI Inspection: Yes normal to inspection Palpation (GI): Soft to palpation, nontender, no guarding and not rigid Percussion: Yes normal to percussion Rectal Exam - Female: deferred Abdomen image:  1. Area of skin thickening located in the right lower portion of the umbilicus. There was an area of tenderness slightly below this but no definite hernias identified. Patient was examined in the standing and supine position with Valsalva maneuvers. Skin Other: Warm, dry, no rash Neuro General: patient oriented x3 Extrem General: Yes no clubbing, cyanosis or edema Assessment & Plan Assessment & Plan (1) Skin lesion: Code(s): L98.9 - Disorder of the skin and subcutaneous tissue, unspecified Category: Medical (2) Incisional hernia: Code(s): K43.2 - Incisional hernia without obstruction or gangrene Category: Medical Qualifiers: Obstruction and gangrene presence: without obstruction or gangrene Qualified Code(s): K43.2 - Incisional hernia without obstruction or gangrene Plan 59-year-old female patient presenting with a chronically thickened scar located in the lower portion of the umbilicus with complaints of a painful lump located below this. The patient is concerned about a hernia although no definite hernias identified. I recommended excision of the hypertrophic scar and wound exploration for possible hernia. If for hernias identified this will be repaired possibly with mesh. I reviewed the procedure, risks, and alternatives in detail and she consents to an excision of the skin lesion of umbilicus and possible umbilical hernia repair. This will be scheduled as a short-stay surgery. Coding Level of Care Code New Pt Level 4 (93206) Diagnoses Skin lesion L98.9 Incisional hernia, without obstruction or gangrene K43.2 Obstruction and gangrene presence: without obstruction or gangrene
--- OUTSIDE RECORDS SUMMARY | 2025-05-16 09:13 | XMS_ITS | Patient Health Record ---
Author Organization [facility] Address [address] [place] [address] Care Team Providers Care Shotgun Shell Assembly Machine Operator Name Role Phone Rodolfo KILPATRICK, [place] Primary Care Provider Alexander Loera Unavailable [phone] Allergies Allergen (clinical drug ingredient) Drug/Non Drug Allergy documented on EMR Reaction Allergy Type Onset Date Status amoxicillin Amoxicillin Unknown Drug Allergy Act patricia Reason For Referral No Information Medications Medication SIG (Take, Route, Frequency, Duration) Notes Start Date End Date Status LORazepam 0.5 MG 1 tablet at bedtime as needed Orally Once a day Active Cholestyramine 4 GM/DOSE 1 scoop in glas s of water or orange juice Orally Once or Twice a day for 30 day(s) 06/07/2018 Active Vitamin D Active Ibuprofen 800 MG 1 tablet with food o r milk as needed Orally prn Active Social History Tobacco Use: Social History Observation Description Date Details (start date - stop date) Never Smoker NA - NA Tobacco Use/Smoking Question Answer Notes Patient is a nonsmoker Alcohol Screen Question Answer Notes Did you have a drink contain ing alcohol in the past year? Yes How often did you have a dri nk containing alcohol in the past year? Monthly or less (1 point) How many drinks did you have on a typical day when you were drinking in the past year? 1 or 2 drinks (0 point) How often did you have 6 or more drinks on one occasion in the past year? Never (0 point) Points 1 Interpretation Negative Section Notes: Nonsmoker; no sig alcohol Problems Problem Type SNOMED Code ICD Code Onset Dates Problem Status W/U Status Risk Notes Problem 792905927 Encounter for screening for malignant neoplasm of colon (Z12.11) Active confirmed Problem 77162212 Diarrhea, unspecified type (R19.7) Active confirmed Plan Of Treatment Pending Test Test Name Order Date GI BIOPSY 07/13/2018 Future Test Test Name Order Date COLONOSCOPY 06/07/2018 Insurance Providers Payer Name Payer Address Payer Phone Subscriber Number Group Number Insured Name Patient Relationship to Insured Coverage Start Date Coverage End Date [facility] [address] [place], [place] [id number] ANDERSON FITZGERALD Self - patient is the insured Medical (General) History Medical History History ICD Code Denies [place],DM,CVA,Lung disease,renal dise ase Surgical History Surgery Date(Month/Year) Cholecystectomy Tubal ligation
== END 2025-05-16 09:24 | disposition home or self-care (01) ==
LOC: HO.HGS 08:57
PROVIDERS: PCP Internal Medicine; Visit Provider Surgery
DX: L98.9 Disorder of the skin and subcutaneous tissue, unspecified (principal); K43.2 Incisional hernia without obstruction or gangrene
CPT/HCPCS: 99204

== ENCOUNTER 2025-06-18 05:59 | Day surgery (SDC) | payer BC, SELFPAY ==
[2025-06-16 13:56] VITALS: BMI 27.4
--- NOTE | 2025-06-17 11:42 | HO.ANESPROP2 ---
Documented by User: Ingris Kwan NP 06/17/25 11:43 HPI - Anesthesia Eval Consult details Narrative: 59yo F for Excision of skin lesion of Umbilical,with possible Hernia Umbilical Reducible PMFSH Active Problems Active Problems: All Active Problems Incisional hernia (Acute) Skin lesion (Acute) Malabsorption (Acute) Right foot pain (Acute) Cervical cancer screening (Acute) Epigastric abdominal pain (Acute) Peroneal neuropathy (Acute) Internal derangement of right knee (Acute) Osteoporosis screening (Acute) Painful arc syndrome of left shoulder (Acute) Stiffness of right hand joint (Acute) Hand pain, right (Acute) Rotator cuff tear arthropathy of right shoulder (Acute) Cervical radiculopathy (Acute) Painful arc syndrome of right shoulder (Acute) Right shoulder pain (Acute) Closed fracture of tuft of distal phalanx of finger (Acute) Fracture of finger of left hand (Acute) Frequent bowel movements (Acute) Pure hypercholesterolemia (Acute) Annual physical exam (Acute) Osteoporosis (Acute) Patellofemoral pain syndrome (Acute) Diverticular disease (Acute) S/P rotator cuff repair (Acute ~11/16/22) Overweight (BMI 25.0-29.9) (Acute) Depression (Acute) Anxiety (Acute) Insomnia (Acute) Rosacea (Acute) Vitamin D deficiency (Acute) Migraine (Acute) Past Medical History Medical History (Updated 05/16/25 @ 09:24 by Jose Mckeon MD) Osteoporosis Patellofemoral pain syndrome Diverticular disease Overweight (BMI 25.0-29.9) Depression Insomnia Rosacea Vitamin D deficiency Chronic recurrent major depressive disorder Unspecified hemorrhoids Anxiety Hyperlipidemia, unspecified Migraine Family History Family History Father CVD (cardiovascular disease) Diabetes mellitus HTN (hypertension) Mother Diabetes mellitus HTN (hypertension) Family history of problems with anesthesia: No Surgical History Surgical History (Updated 06/16/25 @ 13:53 by Leana Cartagena RN) S/P colonoscopy (01/16/24) S/P rotator cuff repair (~11/16/22) Hx laparoscopic cholecystectomy H/O tubal ligation History of Problems with Anesthesia: No Social History Social History Housing: House Alcohol intake: former Patient Tobacco Use Status: Never used Tobacco e-Cigarette/Vaping Use: Never Used Second Hand Smoke Exposure: No Have you been hit, kicked, punched, or otherwise hurt by someone within the past year? 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 Cognitive needs: No Hearing needs: No Vision needs: Yes Meds Allergies Allergy/AdvReac Type Severity Reaction Status Date / Time amoxicillin (AMOXICILLIN) Allergy Severe RASH Verified 05/16/25 09:09 Penicillins Allergy Severe Rash Verified 05/16/25 09:09 Home Medications ?Medication ?Instructions ?Recorded ?Confirmed ?Last Taken ?Type cholecalciferol (vitamin D3) 50 50 mcg PO DAILY 03/17/23 06/16/25 Unknown History mcg (2,000 unit) capsule acetaminophen 500 mg tablet 1,000 mg PO Q6H PRN Pain 05/02/24 06/16/25 Unknown History (Tylenol Extra Strength) Exam Height,Weight and Vital Signs: Height 5 ft 2 in Weight 68.039 kg Assessment and Plan Assessment Anesthesia Assessment: Chart Reviewed Final Anesthetic Review Family History of Problems with Anesthesia: No History of Problems with Anesthesia: No Documented by User: Blane Rodriguez MD 06/18/25 07:45 [facility] Past Medical History Medical History (Updated 05/16/25 @ 09:24 by Jose Mckeon MD) Osteoporosis Patellofemoral pain syndrome Diverticular disease Overweight (BMI 25.0-29.9) Depression Insomnia Rosacea Vitamin D deficiency Chronic recurrent major depressive disorder Unspecified hemorrhoids Anxiety Hyperlipidemia, unspecified Migraine Family History Family History Father CVD (cardiovascular disease) Diabetes mellitus HTN (hypertension) Mother Diabetes mellitus HTN (hypertension) Surgical History Surgical History (Updated 06/16/25 @ 13:53 by Leana Cartagena RN) S/P colonoscopy (01/16/24) S/P rotator cuff repair (~11/16/22) Hx laparoscopic cholecystectomy H/O tubal ligation Social History Social History Housing: House Alcohol intake: former Patient Tobacco Use Status: Never used Tobacco e-Cigarette/Vaping Use: Never Used Second Hand Smoke Exposure: No Have you been hit, kicked, punched, or otherwise hurt by someone within the past year? 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 Cognitive needs: No Hearing needs: No Vision needs: Yes Meds Allergies Allergy/AdvReac Type Severity Reaction Status Date / Time amoxicillin (AMOXICILLIN) Allergy Severe RASH Verified 05/16/25 09:09 Penicillins Allergy Severe Rash Verified 05/16/25 09:09 Home Medications ?Medication ?Instructions ?Recorded ?Confirmed ?Last Taken ?Type cholecalciferol (vitamin D3) 50 50 mcg PO DAILY 03/17/23 06/16/25 Unknown History mcg (2,000 unit) capsule acetaminophen 500 mg tablet 1,000 mg PO Q6H PRN Pain 05/02/24 06/16/25 Unknown History (Tylenol Extra Strength) Exam Airway Mallampati Class: II TM Dist: <=3cm Neck ROM: Full Loose/Missing/Broken Teeth: No Heart: ok Lungs: ok Assessment and Plan Assessment Anesthesia Assessment: Anesthesia Plan Discussed Final Anesthetic Review NPO: Yes ASA Class: II Final Preanesthetic Review: No Changes in Pt Med Stat, Meds/Allgs Chart Reviewed, Consent Obtained/Reviewed and Anes Risks/Benef Reviewed Patient Risk: Low Procedure Risk: Intermediate Anesthetic Plan Anesthetic Plan: GA and Agree w/ Assess. and Plan Disposition: Standard PACU
[2025-06-18 06:04] VITALS: BMI 27.5
[2025-06-18 06:11] VITALS: BP 129/78; PULSE 72; RESP 18; TEMP 36.9; O2SAT 98
[2025-06-18] MEDS: Lactated Ringers 1,000 ML 100 ML IVCONT (06:22)
--- NOTE | 2025-06-18 07:19 | MHC.SHP ---
Pre-Procedural Eval Section A - 24 Hr Update-Section A only Date of Service: 06/18/25 The patient is an INPATIENT: No Changes since office visit: Yes Patient answered all questions; No Cold of Flu in the past 2 weeks, No New Medical Problems and No Changes in Medication The patient has been examined within 24 hours of the surgical procedure. The History & Physical has been completed within 30 days and I have reviewed it.: Yes Section B - Complete if H&P > 30 days Chief Complaint: Incisional hernia without obstruction or gangrene Details of Present Illness: no change in symptoms Relevant Family History (Specify if Yes): No Relevant Social History: None Present Medications: see Short Stay Collaborative assessment Medical History: No relevant PMH History of Previous Operations: No relevant previous surgery Allergies: Allergies Allergy/AdvReac Type Severity Reaction Status Date / Time amoxicillin (AMOXICILLIN) Allergy Severe RASH Verified 05/16/25 09:09 Penicillins Allergy Severe Rash Verified 05/16/25 09:09 Review of Systems Sugical H&P ROS: Negative: Constitution, Cardiovascular, Respiratory, Neurological, Psychiatric, Hem-Onc, Allergic/Immunologic, Gastrointestinal, Genitourinary, Musculoskeletal, Integumentary and Endocrine Exam Surgical H&P Exam: Normal: HEENT, Normal: Heart, Normal: Lungs, Normal: Extremities, Normal: Abdomen and Normal: Skin Plan Diagnosis/Plan: Unchanged I have reviewed the history and physical and performed a pertinent physical examination on my patient. No changes have occurred unless specified. Time Spent With Patient Time: Total time managing care of this patient today ____ minutes.
--- NOTE | 2025-06-18 08:06 | P.OP_ITS ---
Operative Note Operative Note Date of Service: 06/18/25 Narrative: Preoperative diagnosis: Umbilical skin lesion, possible umbilical hernia Postoperative diagnosis: Umbilical skin lesion, no umbilical hernia Procedure: Excision umbilical skin lesion, exploration of the umbilicus Surgeon: Jose Mckeon MD Curtain Mender: CATA Hughes Anesthesia: General LMA Indications for procedure: 59-year-old female patient presenting with an asymmetric skin lesion to the right of midline below the umbilicus measuring approximately 4 cm x 3 cm. Lesion has been present for many years without significant change. There is concern for an underlying umbilical hernias well. Operative findings: Superficial skin lesion possible keloid with no underlying umbilical hernia Specimen: Skin lesion umbilicus Estimated blood loss: 2 mL Complications: None Procedure details: Patient was brought to the OR and placed in a supine position. After administering general anesthesia the patient's abdomen was prepped with ChloraPrep and draped in a sterile fashion. Local anesthesia was infiltrated below the umbilical skin. Elliptical incision oriented to the right of midline was then created and carried down into the subcutaneous tissue. Electrocautery was then used to excise the lesion off the subcutaneous tissue. The lesion was passed off the table and sent to pathology for further examination. Incision was extended below the umbilicus and fascia explored. No umbilical hernia could be identified in this location. Wounds were then irrigated with saline solution and suctioned dry. Dermis was then reapproximated using interrupted 3-0 Polysorb sutures. Skin was closed using a running subcuticular 4-0 Polysorb suture. Steri-Strips, 4 x 4 gauze and Tegaderm were then applied. The patient tolerated the procedure well. Sponge, instrument, and needle counts reported as correct. The patient was transferred to PACU in stable condition.
[2025-06-18 08:08] VITALS: BP 121/89; PULSE 83; RESP 14; TEMP 36.9; O2SAT 95
[2025-06-18 08:13] VITALS: BP 120/75; PULSE 78; RESP 16; O2SAT 95
[2025-06-18 08:18] VITALS: BP 117/77; PULSE 63; RESP 18; O2SAT 97
[2025-06-18 08:23] VITALS: BP 121/76; PULSE 61; RESP 17; TEMP 36.4; O2SAT 97
== END 2025-06-18 08:46 | disposition home or self-care (01) ==
PROVIDERS: PCP Internal Medicine; Visit Provider Surgery
PROC: (CPT 11406; principal; 2025-06-18 07:30)
DX: L90.5 Scar conditions and fibrosis of skin (principal); K44.9 Diaphragmatic hernia without obstruction or gangrene; M81.0 Age-related osteoporosis without current pathological fracture; E55.9 Vitamin D deficiency, unspecified; L71.9 Rosacea, unspecified; E78.5 Hyperlipidemia, unspecified; F33.9 Major depressive disorder, recurrent, unspecified; Z79.1 Long term (current) use of non-steroidal anti-inflammatories (NSAID); Z79.899 Other long term (current) drug therapy; Z88.0 Allergy status to penicillin; Z90.49 Acquired absence of other specified parts of digestive tract; Z98.51 Tubal ligation status
CPT/HCPCS: 11406; 88304; 88305; C9088; J2003; J2405; J2704; J3010; J3374

== ENCOUNTER → 2025-06-18 05:59 | Outpatient (BNV) | payer BC, SELFPAY | PROVIDERS: PCP Internal Medicine; Visit Provider Surgery | DX: L90.5 Scar conditions and fibrosis of skin (principal) | CPT/HCPCS: 11406 ==

== ENCOUNTER 2025-07-04 09:38 | Outpatient (AMB) | payer BC, SELFPAY ==
--- OUTSIDE RECORDS SUMMARY | 2025-06-20 06:30 | XMS_ITS ---
Author Organization [facility] Address [address] [place] [address] Care Team Providers Care Technical Support Professional Name Role Phone Edvin Reynolds MDn[place] Primary Care Provider Sal Walters Unavailable [phone] Allergies Allergen (clinical drug ingredient) Drug/Non Drug [...] Negative Encounters Encounter Location Date Provider Diagnosis [facility] [address] [place] [address] 06/20/2025 Sal Babcock Plan Of Treatment Next Appt Details Provider Name:Sal Babcock , 10/10/2025 09:30:00 AM, [address] [place], [address], Progress Notes * Alla FITZGERALD:[birth year] (59 yo F)Acc No.[id number]:06/20/2025 Progress Notes Patient: Eboni POE Provider: Audrey Babcock DPM :1965 A ge:59 Y S ex:Female Date:06/20/2025 Address:[address] [place], [place] [id number] Pcp:North Reynolds MD Subjective: * Chief Complaints: [...] C ardiovascular: Pacemaker d enies. M MANAGER ASSURANCE d enies. W PW d enies. C [...] Pending * Provider: Audrey Babcock DPM Date: 06/20/2025 Generated for Natty Mcdonald/Shelley on: 07/04/2025 09:46 AM EDT
--- NOTE | 2025-07-04 09:43 | A.OFFVIS_ITS ---
Vital Signs 3 07/04/25 09:54 Height 5 ft 2 in Weight 151 lb 6 oz BMI 27.7 BP 131/82 Blood Pressure Location Lt brachial Position Sitting Pulse 65 Intake Visit Reasons: s/p excision skin lesion of umbilicus, poss umb he Intake Note: Patient is seen in office for post op assessment post excision umbilical skin lesion, exploration of the umbilicus. Pt c/o: healing as expected no concerns surgery:06/18/25 Chemistry Tutor Required: No Accompanied by: Self / Same As Patient Allergies amoxicillin (AMOXICILLIN) Allergy (Severe, Verified 07/04/25 09:53) RASH Penicillins Allergy (Severe, Verified 07/04/25 09:53) Rash HPI Comments Details: 59-year-old female patient returning following a recent excision of skin and exploration for umbilical hernia on 06/18/2025. She tolerated the procedure well and generally feels much improved. She feels the incision is healing well but does note some slight redness in the scar. She denies any fever, chills, nausea or vomiting. [facility] Medical History Osteoporosis Patellofemoral pain syndrome Diverticular disease Overweight (BMI 25.0-29.9) Depression Insomnia Rosacea Vitamin D deficiency Chronic recurrent major depressive disorder Unspecified hemorrhoids Anxiety Hyperlipidemia, unspecified Migraine Surgical History History of surgical removal of skin lesion (06/18/25) S/P colonoscopy (01/16/24) S/P rotator cuff repair (~11/16/22) Hx laparoscopic cholecystectomy H/O tubal ligation Family History Father CVD (cardiovascular disease) Diabetes mellitus HTN (hypertension) Mother Diabetes mellitus HTN (hypertension) Social History Housing: House Alcohol intake: former Patient Tobacco Use Status: Never used Tobacco e-Cigarette/Vaping Use: Never Used Second Hand Smoke Exposure: No service: No Current occupational status: employed 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 Cognitive needs: No Hearing needs: No Vision needs: Yes Physical Exam Vital Signs: Last Vital Signs Pulse 65 07/04/25 09:54 BP 131/82 07/04/25 09:54 BMI result Body Mass Index 27.7 Const General: no acute distress Nutritional Appearance: well nourished Limitations: no limitations Resp Effort & Inspection: normal respiratory effort GI Other: Abdominal incision emanating from the umbilicus is clean, dry, and intact without redness or discharge. Abdomen image: 2 1. Well-healing wound at lower outer quadrant umbilicus with no evidence of keloid or hypertrophic scar Assessment & Plan Assessment & Plan (1) Skin lesion: Code(s): L98.9 - Disorder of the skin and subcutaneous tissue, unspecified Category: Medical Plan 59-year-old female returning status post excision of a skin lesion of the umbilicus which was determined to be a dermal scar. No malignancy was identified. She tolerated the procedure well in the wounds are healing nicely. She should follow up as needed. Coding Level of Care Code Global (00229) Diagnoses Skin lesion L98.9
--- OUTSIDE RECORDS SUMMARY | 2025-07-04 09:46 | XMS_ITS | Patient Health Record ---
Author Organization [facility] Address [address] [place] [address] Care Team Providers Care Surgical Services Assistant Name Role Phone Rodolfo KILPATRICK, [place] Primary Care Provider Alexander Loera Unavailable [phone] Allergies Allergen (clinical drug ingredient) Drug/Non Drug [...] Problem Status W/U Status Risk Notes Problem [id number] Encounter for screening for malignant neoplasm of colon (Z12.11) Active confirmed Problem [id number] Diarrhea, unspecified type (R19.7) Active confirmed Plan Of Treatment Pending Test Test Name Order Date GI BIOPSY 07/13/2018 Future Test Test Name Order Date COLONOSCOPY 06/07/2018 Insurance Providers Payer Name Payer Address Payer Phone Subscriber Number Group Number Insured Name Patient Relationship to Insured Coverage Start Date Coverage End Date [facility] [address] [place], [place] [id number] [phone] [id number] ANDERSON FITZGERALD Self - patient is the insured Medical (General) History Medical History History ICD Code Denies NM,DM,CVA,Lung disease,renal dise ase Surgical History Surgery Date(Month/Year) Cholecystectomy Tubal ligation
[2025-07-04 09:54] VITALS: BP 131/82; PULSE 65; BMI 27.7
== END 2025-07-04 10:00 | disposition home or self-care (01) ==
LOC: HO.HGS 09:39
PROVIDERS: PCP Internal Medicine; Visit Provider Surgery
DX: L98.9 Disorder of the skin and subcutaneous tissue, unspecified (principal)
CPT/HCPCS: 99024

== ENCOUNTER 2025-09-26 06:44 | Outpatient (REF) | payer BC, SELFPAY ==
--- OUTSIDE RECORDS SUMMARY | 2025-06-20 05:30 | XMS_ITS ---
Author Organization [facility] Address [address] [place] [address] Care Team Providers Care Backup Administrator Name Role Phone Rodolfo KILPATRICK [place] Primary Care Provider Sal Walters Unavailable [phone] Allergies Allergen (clinical drug ingredient) Drug/Non Drug [...] Negative Encounters Encounter Location Date Provider Diagnosis [facility] [address] [place] [address] 06/20/2025 Sal Babcock Plan Of Treatment Next Appt Details Provider Name:Sal Babcock , 10/10/2025 09:30:00 AM, [address] [place], [address], Progress Notes * Eboni FITZGERALDDOB:[birth year] (59 yo F)Acc No.[id number]:06/20/2025 Progress Notes Patient: Eboni POE Provider: Audrey Babcock DPM :1965 A ge:59 Y S ex:Female Date:06/20/2025 Address:[address] [place], [place] [id number] Pcp:North Reynolds MD Subjective: * Chief Complaints: [...] enies. C ardiovascular: Pacemaker d enies. M CIRCULATION LIBRARIAN d enies. W PW d enies. C [...] 0 06/20/2025 Generated for Natty Mcdonald/Shelley on: 11/26/2024 06:47 AM EST
--- OUTSIDE RECORDS SUMMARY | 2025-09-02 09:00 | XMS_ITS ---
Author Organization [facility] Address [address] [place] [address] Care Team Providers Care Linseed Oil Press Tender Name Role Phone Rodolfo KILPATRICK, [place] Primary Care Provider Unava ilSal Carbajal Unavailable [phone] Encounters Encounter Location Date Provider Diagnosis [address] [address] 09/02/2025 Sal Babcock Plan Of Treatment Next Appt Details Provider Name:Sal Babcock , 10/10/2025 09:30:00 AM, [address] [place] [address], [phone], Progress Notes * Eboni FITZGERALDDOB:[birth year] (59 yo F)Acc No.[id number]:09/02/2025 Progress Notes Patient: Eboni POE Provider: Audrey Babcock DPM :1965 A ge:59 Y S ex:Female Date:09/02/2025 Address:[address] [place] [address] Pcp:North Reynolds MD Subjective: * Chief Complaints: * * Medical History: Objective: * Vitals: Assessment: Plan: * Treatment: * Images: * The named appointment provid er may or may not be the originator of this progress note, and it is not deemed complete until electronically signed by the appointment provider. Sign off status: Pending * Provider: Audrey Babcock DPM Date: Generated for Natty navas/Vera/Shelley on: 11/26/2024 06:47 AM EST
--- NOTE | ~2025-09-26 | XR_ITS ---
EXAMINATION: XR LUMBOSACRAL SPINE CLINICAL INFORMATION: M54.50 - Low back pain, unspecified COMPARISON: None available. TECHNIQUE: Three views of the lumbosacral spine. FINDINGS: 5 lumbar type vertebral bodies. No evidence of acute fracture or subluxation. Vertebral body heights are maintained. Disc spaces are maintained. No suspicious lytic or blastic lesion. SI joints are symmetric. Multiple calcifications in the pelvis, probable phleboliths. Right abdomen surgical clips. XR/XR lumbar spine 2-3V IMPRESSION: No acute findings Electronically signed by: Jeff Díaz MD 09/26/2025 10:52 AM MARIBEL
--- OUTSIDE RECORDS SUMMARY | 2025-09-26 06:47 | XMS_ITS | Patient Health Record ---
Author Organization [facility] Address [address] [place] [address] Care Team Providers Care Carry Out Clerk And Shelf Stocker Name Role Phone Rodolfo KILPATRICK, [place] Primary Care Provider Alexander Loera [phone] Allergies Allergen (clinical drug ingredient) Drug/Non Drug [...] orange juice Orally Once or Twice a day; Duration: 30 day(s) 06/07/2018 Active Vitamin D Active [...] Problem Status W/U Status Risk Notes Problem Screening for malignant neoplasm of colon (395840358) Encounter for screening for malignant neoplasm of colon (Z12.11) Active confirmed Problem Diarrhea (19080838) Diarrhea, unspecified type (R19.7) Active confirmed Plan Of Treatment Pending Test Test Name Order Date GI BIOPSY 07/13/2018 Future Test Test Name Order Date COLONOSCOPY 06/07/2018 Insurance Providers Payer Name Payer Address Payer Phone Subscriber Number Group Number Insured Name Patient Relationship to Insured Coverage Start Date Coverage End Date [facility] [address] [place], [place] [id number] ANDERSON FITZGERALD Self - patient is the insured Medical (General) History Medical History History ICD Code Denies UT,DM,CVA,Lung disease,renal dise ase Surgical History Surgery Date(Month/Year) Cholecystectomy Tubal ligation
--- OUTSIDE RECORDS SUMMARY | 2025-09-26 06:47 | XMS_ITS | Patient Health Record ---
Author Organization [facility] Address [address] [place] [address] Care Team Providers Care Brickmason Apprentice Name Role Phone Edvin Reynolds MDneth Primary Care Provider Sal Walters Unavailable [phone] Allergies Allergen (clinical drug ingredient) Drug/Non Drug Allergy documented on EMR Reaction Allergy Type Onset Date Status Penicillin rash Drug Allergy Active Reason For Referral No Information Medications Medication SIG (Take, Route, Fr equency, [...] Negative Encounters Encounter Location Date Provider Diagnosis [facility] [address] [place] [address] 06/19/2025 Sal Babcock Plan Of Treatment Next Appt Details Provider Name:Sal Babcock , 10/10/2025 09:30:00 AM, [address] [place], [address], Insurance Providers Payer Name Payer Address Payer Phone Subscriber Number Group Number Insured Name Patient Relationship to Insured Coverage Start Date Coverage End Date [employer] [address] [place] [address] [id number] Eboni Cobian Self - patient is the insured Medical (General) History Medical History History ICD Code Anxiety Back,Hip,and Knee pain covid-19 Depression Diverticulosis Gall bladder problems Headaches/Migraines Chicken pox Surgical History Surgery Date(Month/Year) rotator cuff surgery right arm 11/16/22 tubal ligation 10/04/1989 Gall bladder removal 2001
[2025-09-26 06:59] LABS: MANUAL DIFF FLAG NO
[2025-09-26 07:12] LABS: Hematocrit 42.8 % (37.0-47.0); Hemoglobin 13.8 g/dl (12.0-16.0); Imm Gran Abs Auto 0.01 X10*3/uL (0.00-0.03); Imm Gran Pct Auto 0.2 % (0.0-0.4); Lymphocytes Absolute Auto 2.4 X10*3/uL (1.2-4.9); Mean Corpuscular HGB Conc 32.2 g/dl (31.0-35.0); Mean Corpuscular Hemoglobin 27.5 pg (27.0-33.0); Mean Corpuscular Volume 85.4 fL (80.0-98.0); NRBC Abs Auto 0.000 X10*3/uL (0.0-0.012); NRBC Pct Auto 0.0 /100WBC (0.0-0.2); Platelet Count 241 X10*3/uL (160-400); Red Blood Count 5.01 X10*6/uL (4.20-5.50); White Blood Count 4.8 X10*3/uL (4.8-10.8)
[2025-09-26 07:39] LABS: Appearance Urine Clear; PH 7.5 (5.0-9.0)
[2025-09-26 07:40] LABS: Glucose Urine UA Negative (Negative); Specific Gravity - Urine 1.020 (1.005-1.025)
[2025-09-26 07:59] LABS: Alanine Aminotransferase 22 U/L (0-31); Albumin Level 4.6 g/dL (3.5-5.0); Alkaline Phosphatase 94 U/L (39-117); Anion Gap 11 (12-20); Aspartate Amino Transferase 28 U/L (5-31); Blood Urea Nitrogen 18 mg/dL (9-16); Calcium 9.3 mg/dL (8.4-10.2); Carbon Dioxide 28 mmol/L (22-29); Chloride 106 mmol/L (96-108); Cholesterol 254 mg/dL (<200); Estimated Glomerular Filt Rate > 60; HDL Cholesterol 133 mg/dL (>40); Potassium 3.9 mmol/L (3.3-5.1); Sodium 141 mmol/L (135-145); Total Protein 7.4 g/dL (6.5-8.0); Triglycerides 50 mg/dL (<150)
[2025-09-26 08:23] LABS: Folate 13.1 ng/mL (> or = 4.0); Vitamin B12 891 pg/mL (200-900)
[2025-10-01 18:22] LABS: NTXCreaRU 101 mg/dL (20-275)
== END 2025-09-26 06:45 | disposition home or self-care (01) ==
LOC: HO.XRAY 06:44
PROVIDERS: PCP Internal Medicine; Visit Provider Internal Medicine
DX: Z00.00 Encounter for general adult medical examination without abnormal findings (principal); M81.0 Age-related osteoporosis without current pathological fracture; E53.8 Deficiency of other specified B group vitamins; E78.00 Pure hypercholesterolemia, unspecified; D64.9 Anemia, unspecified; E55.9 Vitamin D deficiency, unspecified; M54.50 Low back pain, unspecified; R30.0 Dysuria
CPT/HCPCS: 36415; 72100; 80053; 80061; 81003; 82306; 82523; 82607; 82746; 84443; 85025

== ENCOUNTER → 2025-09-26 07:03 | Outpatient (BNV) | payer BC, SELFPAY | PROVIDERS: PCP Internal Medicine; Visit Provider Radiology Diagnostic Ultrasound | DX: M54.50 Low back pain, unspecified (principal) | CPT/HCPCS: 72100 ==

== ENCOUNTER 2025-10-03 07:27 | Outpatient (REF) | payer BC, SELFPAY ==
--- OUTSIDE RECORDS SUMMARY | 2025-06-20 05:30 | XMS_ITS ---
Author Organization [facility] Address [address] [place] [address] Care Team Providers Care Rn Endocrinology Name Role Phone Rodolfo KILPATRICK [place] Primary Care Provider Sal Walters Unavailable [phone] Allergies Allergen (clinical drug ingredient) Drug/Non Drug [...] Negative Encounters Encounter Location Date Provider Diagnosis [facility] [address] [place] [address] 06/20/2025 Sal Babcock Plan Of Treatment Next Appt Details Provider Name:Sal Babcock , 10/10/2025 09:30:00 AM, [address] [place], [address], Progress Notes * Eboni FITZGERALDDOB:[birth year] (59 yo F)Acc No.[id number]:06/20/2025 Progress Notes Patient: Eboni POE Provider: Audrey Babcock DPM :1965 A ge:59 Y S ex:Female Date:06/20/2025 Address:[address] [place], [place] [id number] Pcp:North Reynolds MD Subjective: * Chief Complaints: [...] enies. C ardiovascular: Pacemaker d enies. M SONAR TECHNICIAN d enies. W PW d enies. C [...] 0 06/20/2025 Generated for Natty Mcdonald/Shelley on: 12/03/2024 07:28 AM EST
--- OUTSIDE RECORDS SUMMARY | 2025-09-02 09:00 | XMS_ITS ---
Author Organization [facility] Address [address] [place] [address] Care Team Providers Care Coke Drawer Name Role Phone Rodolfo KILPATRICK, [place] Primary Care Provider Unava ilSal Carbajal Unavailable [phone] Encounters Encounter Location Date Provider Diagnosis [address] [address] 09/02/2025 Sal Babcock Plan Of Treatment Next Appt Details Provider Name:Sal Babcock , 10/10/2025 09:30:00 AM, [address] [place] [address], [phone], Progress Notes * Eboni FITZGERALDDOB:[birth year] (59 yo F)Acc No.[id number]:09/02/2025 Progress Notes Patient: Eboni POE Provider: Audrey Babcock DPM :1965 A ge:59 Y S ex:Female Date:09/02/2025 Address:[address] [place] [address] Pcp:North Reynolds MD Subjective: * Chief Complaints: * * Medical History: Objective: * Vitals: Assessment: Plan: * Treatment: * Images: * The named appointment provid er may or may not be the originator of this progress note, and it is not deemed complete until electronically signed by the appointment provider. Sign off status: Pending * Provider: Audrey Babcock DPM Date: Generated for Natty navas/Dario on: 12/03/2024 07:29 AM EST
--- NOTE | ~2025-10-03 | MM_ITS ---
EXAMINATION: MM SCREENING DIGITAL BREAST TOMOSYNTHESIS, BILATERAL CLINICAL INFORMATION: Screening. Asymptomatic. COMPARISON: Mammography: Comparison is made with available priors TECHNIQUE: Digital breast mammography with tomosynthesis is performed in both the craniocaudal and mediolateral oblique views along with computer-aided detection (CAD). FINDINGS: The breasts are heterogeneously dense, which may obscure small masses. Oval focal asymmetry upper outer left breast middle depth stable dating back to 2019. There are no significant masses, abnormal calcifications, or other abnormalities. MM/MM tomosynthesis screening BI IMPRESSION: No mammographic evidence of malignancy. ASSESSMENT: BI-RADS Category 2: Benign RECOMMENDATION: Routine annual mammography screening. 1 year F/U This examination should not preclude the clinical evaluation of a suspicious palpable abnormality. This patient's information was entered into a reminder system with a target due date for their next mammogram. Electronically signed by: Maryan Rosas DO 10/07/2025 07:44 AM [facility]
--- OUTSIDE RECORDS SUMMARY | 2025-10-03 07:29 | XMS_ITS | Patient Health Record ---
Author Organization [facility] Address [address] [place] [address] Care Team Providers Care Fisher Purse Seine Name Role Phone Rodolfo KILPATRICK, [place] Primary Care Provider Alexander Loera [phone] Allergies Allergen (clinical drug ingredient) Drug/Non Drug [...] Problem Screening for malignant neoplasm of colon (297953117) Encounter for screening for malignant neoplasm of colon (Z12.11) Active confirmed Problem Diarrhea (70365611) Diarrhea, unspecified type (R19.7) Active confirmed Plan Of Treatment Pending Test Test Name Order Date GI BIOPSY 07/13/2018 Future Test Test Name Order Date COLONOSCOPY 06/07/2018 Insurance Providers Payer Name Payer Address Payer Phone Subscriber Number Group Number Insured Name Patient Relationship to Insured Coverage Start Date Coverage End Date [facility] [address] [place], [place] [id number] [phone] [id number] ANDERSON FITZGERALD Self - patient is the insured Medical (General) History Medical History History ICD Code Denies MT,DM,CVA,Lung disease,renal dise ase Surgical History Surgery Date(Month/Year) Cholecystectomy Tubal ligation
--- OUTSIDE RECORDS SUMMARY | 2025-10-03 07:29 | XMS_ITS | Patient Health Record ---
Author Organization [facility] Address [address] [place] [address] Care Team Providers Care Sr. Manager Marketing Name Role Phone Edvin Reynolds MDneth Primary Care Provider Sal Walters Unavailable [phone] Allergies Allergen (clinical drug ingredient) Drug/Non Drug [...] Encounters Encounter Location Date Provider Diagnosis [facility] [address] [place] [address] 06/19/2025 Sal Babcock Plan Of Treatment Next Appt Details Provider Name:Sal Babcock , 10/10/2025 09:30:00 AM, [address] [place], [address], Insurance Providers Payer Name Payer Address Payer Phone Subscriber Number Group Number Insured Name Patient Relationship to Insured Coverage Start Date Coverage End Date [employer] [address] [place] [address] [id number] Eboni Cobian Self - patient is the insured Medical (General) History Medical History History ICD Code Anxiety Back,Hip,and Knee pain covid-19 Depression Diverticulosis Gall bladder problems Headaches/Migraines Chicken pox Surgical History Surgery Date(Month/Year) rotator cuff surgery right arm 11/16/22 tubal ligation 10/04/1989 Gall bladder removal 2001
== END 2025-10-03 07:28 | disposition home or self-care (01) ==
LOC: HO.MAMMO 07:27
PROVIDERS: PCP Internal Medicine; Visit Provider Internal Medicine
DX: Z12.31 Encounter for screening mammogram for malignant neoplasm of breast (principal)
CPT/HCPCS: 77063; 77067; 96127

== ENCOUNTER → 2025-10-03 07:30 | Outpatient (BNV) | payer BC, SELFPAY | PROVIDERS: PCP Internal Medicine; Visit Provider Internal Medicine | DX: Z12.31 Encounter for screening mammogram for malignant neoplasm of breast (principal) | CPT/HCPCS: 77063; 77067 ==

== ENCOUNTER 2025-10-03 08:47 | Outpatient (AMB) | payer BC, SELFPAY ==
--- NOTE | 2025-10-03 08:49 | A.OFFPC_ITS ---
Vital Signs 10/03/25 08:50 Height 5 ft 2 in Weight 151 lb 6 oz BMI 27.7 BP 122/90 H Blood Pressure Location Lt brachial Position Sitting Pulse 94 Pulse Source Pulse Oximeter Temp 97.3 F Temp Source Temporal Artery Scan Pulse Oximetry (%) 92 Oxygen Delivery Method Room Air Intake Visit Reasons: Annual Exam Stress Engineer Required: No Accompanied by: Self / Same As Patient Allergies amoxicillin (AMOXICILLIN) Allergy (Severe, Verified 10/03/25 09:34) RASH Penicillins Allergy (Severe, Verified 10/03/25 09:34) Rash Medication List - Last Reconciled 10/03/25 by North Reynolds MD acetaminophen (Tylenol Extra Strength) 1,000 mg PO Q6H PRN bismuth subsalicylate 2 tabs PO QID 14 days calcium carbonate (Oyster Shell Calcium 500) 500 mg PO DAILY 90 days cholecalciferol (vitamin D3) 50 mcg PO DAILY hydrocortisone acetate (Anucort-HC) 25 mg AL BID ibuprofen 800 mg PO TID lorazepam 0.5 mg (1/2 x 1 mg) PO BID PRN methylcellulose (laxative) (Citrucel) 1,000 mg (2 x 500 mg) PO DAILY sennosides (Natural Senna Laxative) 17.2 mg (2 x 8.6 mg) PO BEDTIME Tobacco use date assessed: 03/28/25 Dental Screening Dental Screen Date: 03/28/25 Did you have a dental visit in the last 12 months?: Yes Did you have a dental problem in the last 6 months where you did not have access to dental care?: No Was dental information given to patient?: Patient has dentist HPI Annual Exam HPI Details Patient comes in today for her annual physical examination States that she feels okay Relates that she went to a local urgent care center about a week ago for increased cough and congestion - was diagnosed with a viral bronchitis and was prescribed some Albuterol inhaler to use PRN as well as a short course of oral prednisone States that all of her respiratory symptoms have cleared up completely since She denies any headaches or dizziness Denies any chest pains No nausea/vomiting, no abdominal pain No change in bowel habits noted Denies any acute urinary symptoms She had her follow up labs done last week - to discuss her results She is up-to-date with her colon cancer screening - last had her colonoscopy done in 12/2023 and was recommended for repeat colonoscopy in 2033 She just had her annual mammogram done earlier this morning and her last pap smear/gynecology exam was done a year ago in September 2024 [facility] Medical History Osteoporosis Patellofemoral pain syndrome Diverticular disease Overweight (BMI 25.0-29.9) Depression Insomnia Rosacea Vitamin D deficiency Chronic recurrent major depressive disorder Unspecified hemorrhoids Anxiety Hyperlipidemia, unspecified Migraine Surgical History (Updated 10/03/25 @ 09:39 by North Reynolds MD) History of surgical removal of skin lesion (06/18/25) S/P colonoscopy (01/16/24) S/P rotator cuff repair (~11/16/22) Hx laparoscopic cholecystectomy H/O tubal ligation Family History Father CVD (cardiovascular disease) Diabetes mellitus HTN (hypertension) Mother Diabetes mellitus HTN (hypertension) Social History Housing: House Alcohol intake: former Patient Tobacco Use Status: Never used Tobacco e-Cigarette/Vaping Use: Never Used Second Hand Smoke Exposure: No service: No Current occupational status: employed 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 Cognitive needs: No Hearing needs: No Vision needs: Yes Questionnaire PHQ-9 Over the last 2 weeks, how often have you been bothered by any of the following problems? 1. Little interest or pleasure in doing things: not at all 2. Feeling down, depressed, or hopeless: not at all 3. Trouble falling or staying asleep, or sleeping too much: not at all 4. Feeling tired or having little energy: several days 5. Poor appetite or overeating: not at all 6. Feeling bad about yourself - or that you are a failure or have let yourself or your family down: not at all 7. Trouble concentrating on things, such as reading the newspaper or watching television: not at all 8. Moving or speaking so slowly that other people could have noticed. Or the opposite - being so fidgety or restless that you have been moving around a lot more than usual: not at all 9. Thoughts that you would be better off or of hurting yourself in some way: not at all Total score: 1 Depression Screening Interpretation: Negative Depression Screening Done: Yes 70403 - PHQ-9 Billing: Yes Source: Developed by Drs. Alexander Shipley, Ceci Bob, Marvel Marrero and colleagues, with an educational amarjit from [employer] Thrive Questionnaire Date Thrive assessed: 03/21/25 I am a: Patient What is your living situation today?: I have a steady place to live Within the past 12 months, did the food you bought not last and you didn't have the money to get more?: Never true Within the past 12 months, did you worry whether your food would run out before you got money to buy more?: Never true Do you have trouble paying for medicines?: No Do you have trouble getting transportation to medical appointments?: No Do you have trouble paying your heating and electricity bill?: No Do you have trouble taking care of your child, family member or friend?: No Do you have trouble with day-to-day activities such as bathing, preparing meals, shopping, managing finances, etc.?: No Are you currently unemployed and looking for a job?: No Are you interested in more education?: No Please select the resources that you would like help with: None Currently or been in a relationship where the following occur: No concerns reported THRIVE Score: 0 AUDIT C Alcohol Use Questionnaire (AUDIT-C) 1. How often do you have a drink containing alcohol?: Never 3. How often do you have six or more drinks on one occasion?: Never Total Score: 0 Score Reviewed/Action Taken: Yes CASSANDRA-7 AMB Questionnaire CASSANDRA-7 Date CASSANDRA - 7 assessed: 03/28/25 Feeling nervous, anxious, or on edge: 0 = Not at all Not being able to stop or control worryin = Not at all Worrying too much about different things: 0 = Not at all Trouble relaxin = Not at all Being so restless that it is hard to sit still: 0 = Not at all Becoming easily annoyed or irritable: 0 = Not at all Feeling afraid as if something awful might happen: 0 = Not at all Total CASSANDRA-7 score (0-4 normal; 5-9 mild; 10-14 moderate; 15-21 severe): 0 Source: Developed by Drs. Alexander Shipley, Ceci Bob, Marvel Marrero and colleagues, with an educational amarjit from [employer] Review of Systems Const Denies chills, Denies fatigue, Denies fever(s), Denies headache(s) and Denies malaise Eyes Denies blurry vision, Denies change in vision, Denies irritation and Denies itchy eyes ENT Denies dysphagia, Denies dizziness, Denies otalgia, Denies headache(s), Denies nasal congestion, Denies neck pain, Denies odynophagia, Denies sinus pain and Denies sore throat Card Denies chest pain, Denies rapid heart rate, Denies irregular heart rhythm, Denies palpitations and Denies dyspnea Resp Denies chest congestion, Denies cough, Denies dyspnea and Denies wheezing GI Denies abdominal pain, Denies bloating, Denies constipation, Denies dysphagia, Denies heartburn, Denies diarrhea, Denies nausea, Denies odynophagia and Denies vomiting Denies hematuria, Denies urinary frequency, Denies dysuria, Denies urinary incontinence and Denies urinary urgency Musc Denies back pain, Denies arthralgias, Denies joint swelling, Denies muscle w eakness and Denies neck pain Skin/Breast Denies breast pain, Denies breast mass, Denies change in pigmentation, Denies lesions, Denies rash and Denies unusual bruising Neuro Denies dizziness, Denies headache(s) and Denies paresthesias Psych Denies anxiety and Denies depression Endo Denies fatigue and Denies palpitations William/Lymph Denies easy bruising Aller/Immun Denies itchy eyes and Denies wheezing Physical exam (Primary Care) Vital Signs: Last Vital Signs Temp 97.3 F 10/03/25 08:50 Pulse 94 10/03/25 08:50 BP 122/90 H 10/03/25 08:50 Pulse Ox 92 10/03/25 08:50 Oxygen Delivery Method Room Air 10/03/25 08:50 BMI result Body Mass Index 27.7 Tobacco/Smoking Status: Tobacco use Status Tobacco use date assessed 03/28/25 10/03/25 08:52 Patient Tobacco Use Status Never used Tobacco 10/03/25 08:52 e-Cigarette/Vaping Use Never Used 10/03/25 08:52 PHQ-9: PHQ-9 Score PHQ-9: Total score 1 10/03/25 08:56 Depression Screening Interpretation: Negative Thrive Assessment: Date of Thrive Assessment Date Thrive assessed 03/21/25 10/03/25 08:52 Currently or been in a relationship where the following occur: No concerns reported Const General: no acute distress, alert and awake Orientation/consciousness: patient oriented x3 [facility] Head: Yes normocephalic and Yes atraumatic Ears: external ears normal, TM's normal bilaterally and EAC's normal General nose exam: No nasal discharge present Face and sinus: Yes normal facial exam and Yes sinuses nontender Teeth and gingiva: dentition normal Throat: Yes posterior oropharynx normal and Yes tonsils normal (no TP congestion) Eyes Eyelids: Yes eyelids normal Conjunctivae: conjunctivae normal Pupils: Equal, round and reactive pupils present EOM: EOMs intact bilaterally Neck Neck: Yes no lymphadenopathy and Yes supple Thyroid: Thyroid normal Resp Auscultation: clear to auscultation bilaterally, no rales and no wheezes Cardio Rate: regular rate Rhythm: regular rhythm Heart sounds: no murmurs GI Palpation (GI): Soft to palpation, nontender and No hepatosplenomegaly present Auscultation: normal bowel sounds General: Yes no CVA tenderness Back/Spine/Pelvis Back: no CVA tenderness Thoracic/Lumbar Spine: thoracic and lumbar spine normal to inspection Skin Lesions: no lesions Rashes: no rashes Neuro General: patient oriented x3, moves all extremities, no focal motor deficits and CN's II-XI intact bilaterally Cranial nerves: Yes Equal, round and reactive pupils present Cognition (Neuro): normal cognition Gait exam (Neuro): Normal gait present Extrem General: Yes no clubbing, cyanosis or edema Results Reviewed Results Reviewed: Laboratory Tests 09/26/25 09/26/25 06:49 06:57 WBC 4.8 Hgb 13.8 Hct 42.8 Plt Count 241 Sodium 141 Potassium 3.9 Creatinine 0.65 Estimated GFR > 60 Fasting Glucose 79 Calcium 9.3 D AST 28 ALT 22 Triglycerides 50 Cholesterol 254 H LDL Cholesterol, Calc 111 H HDL Cholesterol 133 N-Telopeptide X-linked 52 Vitamin B12 891 25-OH Vitamin D Total 38.8 TSH 1.37 Ur Specific [place] 1.020 Urine Protein Negative Urine Glucose (UA) Negative Urine Blood Negative Urine Nitrite Negative Ur Leukocyte Esterase Negative Coding Level of Care Code Est Pt Prev Care 40-64y(29643) Diagnoses Annual physical exam Z00.00 Pure hypercholesterolemia E78.00 Migraine without status migrainosus, not intractable, unspecified migraine type G43.909 Migraine type: unspecified Status migrainosus presence: without status migrainosus Intractability: not intractable Vitamin D deficiency E55.9 Age-related osteoporosis without current pathological fracture M81.0 Osteoporosis type: age-related Presence of current pathological fracture: without current pathological fracture Frequent bowel movements R19.4 Rotator cuff tear arthropathy of right shoulder M75.101; M12.811 Right foot pain M79.671 Rosacea L71.9 Skin lesion L98.9 Insomnia, unspecified type G47.00 Insomnia type: unspecified Anxiety F41.9 Episode of recurrent major depressive disorder, unspecified depression episode severity F33.9 Depression Type: major depressive disorder Major depression recurrence: recurrent Active/Remission status: currently active Major depression episode severity: unspecified Overweight (BMI 25.0-29.9) E66.3 Additional Codes PHQ-9 - 48709 - PHQ-9 Billing: Yes ([id number]) Assessment & Plan Assessment & Plan (1) Annual physical exam: Code(s): Z00.00 - Encounter for general adult medical examination without abnormal findings Category: Medical Plan: Results of her labs done last week reviewed and discussed with patient She is up-to-date with her colon cancer screening - last had her colonoscopy done in 12/2023 and was recommended for repeat colonoscopy in 2033 She just had her annual mammogram done earlier this morning She had her last pap smear/gynecology exam was done a year ago in September 2024 (2) Pure hypercholesterolemia: Code(s): E78.00 - Pure hypercholesterolemia, unspecified Category: Medical Plan: She is advised that her cholesterol level is elevated but majority of it is due to her HDL cholesterol, which is at 133 mg/dl; her LDL cholesterol is acceptable at 111 mg/dl Reinforced low cholesterol diet (3) Migraine: Code(s): G43.909 - Migraine, unspecified, not intractable, without status migrainosus Category: Medical Qualifiers: Migraine type: unspecified Status migrainosus presence: without status migrainosus Intractability: not intractable Qualified Code(s): G43.909 - Migraine, unspecified, not intractable, without status migrainosus Plan: Stable/controlled She was taking Meloxicam 15 mg QD PRN in the past but is currently back on Ibuprofen 800 mg TID for her shoulder pain Have advised her that she should take this with food and only on an as-needed basis (4) Vitamin D deficiency: Code(s): E55.9 - Vitamin D deficiency, unspecified Category: Medical Plan: Corrected Continue Vitamin D3 2000 units QD (5) Osteoporosis: Code(s): M81.0 - Age-related osteoporosis without current pathological fracture Category: Medical Qualifiers: Osteoporosis type: age-related Presence of current pathological fracture: without current pathological fracture Qualified Code(s): M81.0 - Age- related osteoporosis without current pathological fracture Plan: Her BMD (baseline exam) done last October 2023 revealed (+) osteoporosis based on the lowest T-score value of -2.7 in the lumbar spine Her left femur BMD is normal; her lumbar spine x-rays done last week came back normal Her urine NTx done last week came back normal We have recommended that patient start taking some Rx like Alendronate to help address her osteoporosis as this appears quite advanced for her age but patient states that she would like to wait and see how her repeat BMD comes out first Will consider referring her to endocrinology for further evaluation and management if her repeat BMD showed (+) further decline in her BMD Reinforced fall precautions and have advised her again that she should start taking OTC Calcium supplements daily and continue on her Vitamin D supplements as well (6) Frequent bowel movements: Code(s): R19.4 - Change in bowel habit Category: Medical Plan: Patient states that her previous GI symptoms have completely improved now She was seen by GI and worked up and her tests came back positive for Norovirus and H. pylori; tests for celiac disease came back negative States that she was treated for H.pylori, which she had a hard time tolerating but did complete eventually States that she was also given extensive instructions by GI on what to do regarding her diet Follow up with GI as scheduled (7) Rotator cuff tear arthropathy of right shoulder: Comment: Right rotator cuff repair 11/16/2022 [place] Code(s): M75.101 - Unspecified rotator cuff tear or rupture of right shoulder, not specified as traumatic; M12.811 - Other specific arthropathies, not elsewhere classified, right shoulder Category: Medical Plan: S/P right rotator cuff surgery with Dr. Palomino in October 2022 States that both of her shoulder symptoms have improved with physical therapy and flares up only now and then She recalls getting a cortisone injection into her left shoulder in the past with (+) relief of her symptoms Follow up with orthopedics as scheduled or as needed (8) Right foot pain: Code(s): M79.671 - Pain in right foot Category: Medical Plan: X-rays of the right foot done in January 2025 came back normal except for calcaneal spurs Follow up with podiatry as scheduled (9) Rosacea: Code(s): L71.9 - Rosacea, unspecified Category: Medical Plan: Follow up with dermatology as scheduled/as needed (10) Skin lesion: Code(s): L98.9 - Disorder of the skin and subcutaneous tissue, unspecified Category: Medical Plan: She had these lesions removed by Dr. Mckeon back in late May 2025 - was advised that these mostly came out as dermal scars on pathology (11) Insomnia: Code(s): G47.00 - Insomnia, unspecified Category: Medical Qualifiers: Insomnia type: unspecified Qualified Code(s): G47.00 - Insomnia, unspecified Plan: Sleep hygiene reinforced Patient states that Lorazepam helps when needed She has been advised again that she can also try taking OTC Melatonin either 3 mg or 6 mg Q HS PRN if she wants to (12) Anxiety: Code(s): F41.9 - Anxiety disorder, unspecified Category: Medical Plan: Continue Lorazepam 0.5 mg BID PRN (13) Depression: Comment: hx of, not current Code(s): F32.A - Depression, unspecified Category: Medical Qualifiers: Depression Type: major depressive disorder Major depression recurrence: recurrent Active/Remission status: currently active Major depression episode severity: unspecified Qualified Code(s): F33.9 - Major depressive disorder, recurrent, unspecified Plan: Stable - states that exercising regularly helps her manage her depression She has refused offer to start her on Rx in the past and continues to decline - prefers not to take any more Rx as much as possible (14) Overweight (BMI 25.0-29.9): Code(s): E66.3 - Overweight Category: Medical Plan: Reinforced diet/exercise as tolerated/lose weight Plan Follow up 6 months Orders: Orders XR DEXA axial skeleton Today M81.0 - Age-related osteoporosis without current pathological fracture, Z78.0 - Asymptomatic menopausal state
[2025-10-03 08:50] VITALS: BP 122/90; PULSE 94; TEMP 36.3; O2SAT 92; BMI 27.7
== END 2025-10-03 10:07 | disposition home or self-care (01) ==
LOC: HO.HMCH 08:48
PROVIDERS: PCP Internal Medicine; Visit Provider Internal Medicine
DX: Z00.00 Encounter for general adult medical examination without abnormal findings (principal); E78.00 Pure hypercholesterolemia, unspecified; G43.909 Migraine, unspecified, not intractable, without status migrainosus; E55.9 Vitamin D deficiency, unspecified; M81.0 Age-related osteoporosis without current pathological fracture; R19.4 Change in bowel habit; M75.101 Unspecified rotator cuff tear or rupture of right shoulder, not specified as traumatic; M12.811 Other specific arthropathies, not elsewhere classified, right shoulder; M79.671 Pain in right foot; L71.9 Rosacea, unspecified; L98.9 Disorder of the skin and subcutaneous tissue, unspecified; G47.00 Insomnia, unspecified; F41.9 Anxiety disorder, unspecified; F33.9 Major depressive disorder, recurrent, unspecified; E66.3 Overweight

== ENCOUNTER 2025-10-10 11:30 | Outpatient (REF) | payer BC, SELFPAY ==
--- NOTE | ~2025-10-10 | XR_ITS ---
EXAMINATION: XR CERVICAL SPINE CLINICAL INFORMATION: M54.2 - Cervicalgia COMPARISON: None available. TECHNIQUE: AP lateral and atlantoodontoid views. FINDINGS: Endocervical junction is intact. Marginal osteophyte formation and endplate sclerosis decreased intervertebral disc height, C5-6 and to a lesser extent C6-7. Grade 1 retrolisthesis C5-6. No acute cortical disruption. No lytic or blastic lesions. XR/XR cervical spine 3V IMPRESSION: Spondylosis C5-6 resulting in grade 1 retrolisthesis. Spondylosis at C6-7, mild to moderate. Electronically signed by: Petros Walsh MD 10/10/2025 12:53 PM EST
== END 2025-10-10 11:31 | disposition home or self-care (01) ==
LOC: HO.HOSX 11:30
PROVIDERS: PCP Internal Medicine; Visit Provider Physical Medicine & Rehabilitation
DX: M54.2 Cervicalgia (principal); M79.18 Myalgia, other site
CPT/HCPCS: 72040

== ENCOUNTER 2025-10-10 11:30 | Outpatient (AMB) | payer BC, SELFPAY ==
--- OUTSIDE RECORDS SUMMARY | 2025-06-20 05:30 | XMS_ITS ---
Author Organization [facility] Address [address] [place] [address] Care Team Providers Care Manager Battery Name Role Phone Rodolfo KILPATRICK [place] Primary Care Provider Sal Walters Unavailable [phone] Allergies Allergen (clinical drug ingredient) Drug/Non Drug Allergy documented on EMR Reaction Allergy Type Onset Date Status Penicillin rash Drug Allergy Active Medications Medication SIG (Take, Route, Fr equency, Duration) Notes Start Date End Date Status Calcium 500 MG 1 tablet with meals Orally Twice a day Active LORazepam 1 MG 1 tablet at bedtime as needed Orally Once a day Active Ibuprofen 800 MG 1 tablet with food o r milk as needed Orally every 8 hrs Active Tylenol Active Social History Tobacco Use: Social History Observation Description Date Details (start date - stop date) Never Smoker NA - NA Tobacco use other than smoking: Question Answer Notes Are you an other tobacco user? No Tobacco Control (Standard) Question Answer Notes Tobacco use: Nonsmoker Additional Findings: Tobacco non-user Current no nsmoker AUDIT-C (Standard) Question Answer Notes Did you have a drink containing alcohol in the p ast year? No Points 0 Interpretation Negative Encounters Encounter Location Date Provider Diagnosis [facility] [address] [place] [address] 06/20/2025 Sal Babcock Plan Of Treatment No Information Progress Notes * Eboni FITZGERALDDOB:[birth year] (59 yo F)Acc No.[id number]:06/20/2025 Progress Notes Patient: Odilia Eboni OSCAR Provider: Audrey Babcock DPM :1965 A ge:59 Y S ex:Female Date:06/20/2025 Address:[address] [place] [address] [facility] [place] [place] Pcp:North Reynolds MD Subjective: * Chief Complaints: * * ROS: G eneral/Constitutional: Nausea d enies. V omiting d enies. H cristopher Thirst d enies. L oss appetite d enies. C hills d enies. F atigue d enies.?Fever d enies. N ight Sweats d enies. U nexplained weight loss d enies. U nexplained weight gain d enies. H EENTM: Dentures d enies. D izziness d enies. G lasses/contacts d enies. R etinopathy d enies. B lurred/double vision d enies. T MJ?denies. D ischarge/drainage d enies. I mplants d enies. S ore throat d enies. D ental implants d enies. H jonathon of hearing d enies. D ifficulty chewing/swallowing/speaking d enies. N ose bleeds d enies. S ore mouth d enies. ? R espiratory: On Oxygen d enies. P neumonia/pleurisy d enies.?Bronchitis d enies. E mphysema d enies. C oughing d enies. C ough blood?denies. S hortness of breath d enies. W heezing d enies. C ardiovascular: Pacemaker d enies. M ROD POINTER d enies. W PW d enies. C HF d enies. H eart attack d enies. S eptal defect d enies. R apid beat d enies. C hest pain d enies. A trial Fib. d enies. M urmur/Palpitations d enies. G astrointestinal: Hemorrhoids d enies. S tomach/Abdominal pain d enies. D ark blood stool d enies. I rritable bowel d enies. C onstipation d enies. D iarrhea d enies. H ematology: Swelling d enies. C lots d enies. V aricose Veins d enies. B ruising d enies. B leeding problem d enies. G enitourinary: Blood urine d enies. F requent/Painfu/urination/bladder control d enies. K idney stones d enies. I nfection (UTI) d enies. N ephropathy d enies. s ex trans dis (STD) d enies. P rostate d enies. M usculoskeletal: Hammertoes d enies. B unions d enies. B ack Pain d enies. M uscle Cramps/ Resting d enies. M uscle cramps / walking d enies.?Generalized aches and pains a dmits. W eakness d enies. I nteg.: [place] d enies. S cars d enies. C orns/calluses?denies. I ngrown nails d enies. P ainful nails d enies. O pen Sores d enies. R ashes d enies. N eurologic: Difficulty sleeping d enies. B rain disorder d enies. N umbness d enies. B alance trouble d enies. C onfusion d enies. F ainting/blackouts d enies. T ingling d enies. T remors d enies. * Medical History: A nxiety, Back,Hip,and Knee pain, Covid-19, Depression, Diverticulosis, Gall bladder problems, Headaches/Migraines, Chicken pox. * Surgical History: r otator cuff surgery right arm 11/16/22, tubal ligation 10/04/1989, Gall bladder removal 2001. * Family History: M other: , Cancer, diagnosed with Family history of arthritis, Other malignant neoplasm of unspecified site, Diabetic - NIDDM, Unspecified essential hypertension. F ather: , foot problems, poor circulation, diagnosed with Unspecified essential hypertension, Unspecified heart disease, Other specified conditions influencing health status. * Social History: T obacco Use: T obacco use other than smoking A re you an other tobacco user? N o Tobacco Control (Standard) T obacco use: N onsmoker A dditional Findings: Tobacco non-user C urrent nonsmoker D rugs/Alcohol: D rugs H ave you used drugs other than those for medical reasons in the past 12 months? N o M iscellaneous: C affeine: no. Children: yes, 2. Marital status: . D rug/Alcohol: A IMMANUEL-C (Standard) D id you have a drink containing alcohol in the past year? N o P oints 0 I nterpretation N egative * Medications: T aking LORazepam 1 MG Tablet 1 tablet at bedtime as needed Orally Once a day , Taking Calcium 500 MG Tablet 1 tablet with meals Orally Twice a day , Taking Tylenol , Taking Ibuprofen 800 MG Tablet 1 tablet with food or milk as needed Orally every 8 hrs * Allergies: P enicillin: rash - Allergy. Objective: * Vitals: Assessment: Plan: * Treatment: * Images: * The named appointment provid er may or may not be the originator of this progress note, and it is not deemed complete until electronically signed by the appointment provider. Sign off status: Pending * Provider: Audrey Babcock DPM Date: 0 06/20/2025 Generated for Natty Mcdonald/Shelley on: 12/10/2024 12:20 PM EST
--- OUTSIDE RECORDS SUMMARY | 2025-09-02 09:00 | XMS_ITS ---
Author Organization [facility] Address [address] [place] [address] Care Team Providers Care Parachute Line Tier Name Role Phone Rodolfo KILPATRICK, [place] Primary Care Provider Unava Sal Kyle Unavailable [phone] Encounters Encounter Location Date Provider Diagnosis [facility] [address] [place] [address] 09/02/2025 Sal Babcock Plan Of Treatment No Information Progress Notes * Eboni FITZGERALDDOB:[birth year] (59 yo F)Acc No.[id number]:09/02/2025 Progress Notes Patient: Eboni POE Provider: Audrey Babcock DPM :1965 A ge:59 Y S ex:Female Date:09/02/2025 Address:[address] [place] [address] Pcp:North Reynolds MD Subjective: * Chief Complaints: [...] DPM Date: Generated for Marbellai yosef/Vera/eTransmitting on: 12/10/2024 12:21 PM EST
--- OUTSIDE RECORDS SUMMARY | 2025-10-10 04:30 | XMS_ITS ---
[facility] Address [address] [place] [address] Care Team Providers Care Sanitation Superintendent Name Role Phone Rodolfo KILPATRICK, [place] Primary Care Provider UnaSal Murillo Unavailable [phone] Allergies Allergen (clinical drug ingredient) Drug/Non Drug Allergy documented on EMR Reaction Allergy Type Onset Date Status Penicillin rash Drug Allergy Active REASON FOR VISIT Heel pain Medications Medication SIG (Take, Route, Fr equency, Duration) Notes Start Date End Date Status Tylenol Active Ibuprofen 800 MG 1 tablet with food o r milk as needed Orally every 8 hrs Active LORazepam 1 MG 1 tablet at bedtime as needed Orally Once a day Active Calcium 500 MG 1 tablet with meals Orally Twice a day Active Social History Tobacco Use: Social History [...] ast year? No Points 0 Interpretation Negative Problems Problem Type SNOMED Code ICD Code Onset Dates Problem Status W/U Status Risk Notes Problem Plantar fascial fibromatosis (00547694) Plantar fasciitis, bilateral (M72.2) Active confirmed Vital Signs Height 5ft 2in in 10/10/2025 Weight 150 lbs 10/10/2025 BMI 27.43 kg/m2 10/10/2025 Blood pressure systolic 128 mm Hg 10/10/20 25 Blood pressure diastolic 70 mm Hg 025 Encounters Encounter Location Date Provider Diagnosis [facility] [place] [address] [place] [address] 10/10/2025 [place] Pain in right foot M79.671 ; Plantar fasciitis, bilateral M72.2 ; Calcaneal spur, right foot M77.31 ; Other myositis of right foot M60.871 ; Bursitis of right foot M77.51 ; Pain in left foot M79.672 ; Calcaneal spur, left foot M77.32 ; Other myositis of left foot M60.872 and Bursitis of left foot M77.52 Assessments Encounter Date Diagnosis (ICD Code) Assessment Notes Treatment Notes Treatment Clinical Notes Section Notes 10/10/2025 Pain in right foot (ICD-10 - M79.671) 10/10/2025 Plantar fasciitis, bilateral (ICD-10 - M72.2) Patient Educated with: HEEL CORD STRETCHES.pdf (HEEL CORD STRETCHES.pdf) Patient Educated with: RICE THERAPY.pdf (RICE THERAPY.pdf) 10/10/2025 Calcaneal spur, right foot (ICD-10 - M77.31) 10/10/2025 Other myositis of right foot (ICD-10 - M60.871) 10/10/2025 Bursitis of right foot (ICD-10 - M77.51) 10/10/2025 Pain in left foot (ICD-10 - M79.672) 10/10/2025 Calcaneal spur, left foot (ICD-10 - M77.32) 10/10/2025 Other myositis of left foot (ICD-10 - M60.872) 10/10/2025 Bursitis of left foot (ICD-10 - M77.52) Plan Of Treatment Treatment Notes Assessment Notes Plantar fasciitis, bilateral Patient Edu cated with: HEEL CORD STRETCHES.pdf (HEEL CORD STRETCHES.pdf) Patient Educated with: RICE THERAPY.pdf (RICE THERAPY.pdf) Pending Test Test Name Order Date X ray : Foot, left 3V 10/10/2025 X ray : Foot, right 3V 10/10/2025 Next Appt Details Follow Up: prn, Reason: Progress Notes * Alla FITZGERALD:[birth year] (59 yo F)Acc No.[id number]:10/10/2025 Progress Notes Patient: Eboni POE Provider: Audrey Babcock DPM :1965 A ge:59 Y S ex:Female Date:10/10/2025 Address:[address] [place], [place] [id number] Pcp:North Reynolds MD Subjective: * Chief Complaints: * H eel pain * HPI: H eel pain: Nature: t enderness, sharp pain, stiffness. Location: P roximal plantar aspect of Heel , B/L. Duration: a year or more. 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 Aggravated: s tanding, walking, walking first thing in the morning/after rest. Treatments: r est/alter normal daily activity, deep tissue massage, medication ( oral anti-inflammatories - Motrin 800mg at the end of the day ) . * ROS: G eneral/Constitutional: Nausea d enies. [...] enies. C ardiovascular: Pacemaker d enies. M PROJECT DEVELOPER d enies. W PW d enies. C [...] d enies. C orns/calluses?denies. I ngrown nails a dmits. P ainful nails d enies. O pen Sores d enies. R ashes d enies. N eurologic: Difficulty sleeping d enies. B rain disorder d enies. N umbness d enies. B alance trouble d enies. C onfusion d enies. F ainting/blackouts d enies. T ingling d enies. T remors d enies. * Medical History: * Surgical History: r otator cuff surgery right arm 11/16/22tubal ligation 10/04/1989Gall bladder removal 2001 * Hospitalization/Major Diagno stic Procedure: D enies Past Hospitalization * Family History: M other: , Cancer, diagnosed with Other malignant neoplasm of unspecified site, Diabetic - NIDDM, Unspecified essential hypertension, Family history of arthritis. F ather: , foot problems, poor circulation, [...] I nterpretation N egative * Medications: T akingLORazepam 1 MG Tablet 1 tablet at bedtime as needed Orally Once a day Calcium 500 MG Tablet 1 tablet with meals Orally Twice a day Tylenol Ibuprofen 800 MG Tablet 1 tablet with food or milk as needed Orally every 8 hrs Medication List reviewed and reconciled with the patientTaking LORazepam 1 MG Tablet 1 tablet at bedtime as needed Orally Once a day Taking Calcium 500 MG Tablet 1 tablet with meals Orally Twice a day Taking Tylenol Taking Ibuprofen 800 MG Tablet 1 tablet with food or milk as needed Orally every 8 hrs Medication List reviewed and reconciled with the patient * Allergies: P enicillin: rash - Allergyyes[Allergies Verified] Objective: * Vitals: H t:5ft 2in, Wt:150, BMI:27.43, Shoe size:8, BP:128/70mm Hg, Ht-cm: 157.48 cm, Wt- k.04 kg. * Examination: H eel Pain: INSPECTION REVEALS: P ain on Palpation to Plantar Fascia med. and central bands, intrinsic musc., infra-calcaneal bursa, and med calc tubercle, B/L, No pain: posterior/superior heel, achilles bursa/tendon, sinus tarsi, peroneals, or with lateral heel compression; no limited STJ ROM, calor, or ecchymosis. X -Rays - IMAGING REPORT: Clinical Indication(s): Evaluate for Fracture, Evaluate Biomechanical Deformity. Views: 3 views of Foot, LAT, LO, MO , B/L Taken by trained P odiatric Director Of Convention Services ( E F ). Findings: n ormal bone and soft tissue density consistent for patients age and sex, navicular/cuneiform plantar subluxation with anterior cyma line, positive infra-calcaneal exostosis, no coalitions identified. Fracture: N egative fractures identified. ? O rthopedic: MUSCLE STRENGTH: 5 /5 all groups in a symmetrical fashion , B/L. GAIT ABNORMALITY: antalgic. FOOT MORPHOLOGY: Pes Planus structure, Decreased Ankle joint dorsiflexion ROM, knee extended. FOOTWEAR EVALUATION: s hoe gear properties exacerbate patients foot/toe deformity. N eurological: SENSORY: N eurological exam reveals intact sensorium, pain sensation normal, vibration sensation intact, pinprick sensation is normal in the lower extremities, Pt denies, anesthesia, burning, paresthesia, tingling, B/L. TINEL'S COMPRESSION: N egative tarsal tunnel, meg pedis, and medial calcaneal nerves. DEEP TENDON REFLEXES: A chilles, 2/4, B/L. G eneral Examination: GENERAL APPEARANCE: R brinaeals a pleasant, alert, well-nourished, well-developed, well hydrated individual, who demonstrates proper attention to hygiene/body habitus, and is in no acute distress, Pt serves as own h istorian for office visit today. ORIENTED: p erson, place, and time. V ascular: DP PULSES (B): 3 /4, B/L. PT PULSES (B): 3 /4, B/L. CAPILLARY FILL TIME: i mmediate, all digits, B/L. TROPHIC CONDITION-TEXTURE/ELASTICITY/TURGOR/HAIR GROWTH (B):?normal, B/L. TEMPERTURE GRADIENT (C): w arm to cool, proximal to distal, B/L. PIGMENTATION: n ormal, B/L. EDEMA (C): a bsent, B/L. D ermatologic: SKIN FINDINGS: S kin exam reveals normal texture, elasticity, and turgor. There are no masses. The interspaces are clear. Assessment: * Assessment: 1. P ain in right foot - M79.671 2 . P lantar fasciitis, bilateral - M72.2 (Primary) S pecify :Chronic problem, Worse (4) 3 . C alcaneal spur, right foot - M77.31 4 . O ther myositis of right foot - M60.871 5 . B ursitis of right foot - M77.51 6 . P ain in left foot - M79.672 7 . C alcaneal spur, left foot - M77.32? 8. O ther myositis of left foot - M60.872 9 . B ursitis of left foot - M77.52 Plan: * Treatment: 2. P ain in right foot I maging: X ray : Foot, right 3V 3. P ain in left foot I maging: X ray : Foot, left 3V * Procedure Codes: 7 3630 X-RAY EXAM OF RIGHT FOOT 3V, Modifiers: 26 , [id number] X-RAY EXAM OF LEFT FOOT 3V, Modifiers: 26 , LT * Preventive Medicine: Counseling: D iscussion: - 04: Office or other outpatient visit for the evaluation and management of a new patient, which required a medically appropriate history and/or examination and MODERATE level of DECISION MAKING for: 1 OR MORE CHRONIC PROBLEM(S) THATS WORSENING, 2 STABLE CHRONIC PROBLEMS, A NEWLY DIAGNOSED PROBLEM WITH UNCERTAIN PROGNOSIS, AN ACUTE COMPLICATED INJURY WITH MULTIPLE TREATMENT OPTIONS, OR AN ACUTE PROBLEM WITH ACCOMPANYING SYSTEMIC SYMPTOMS, THAT POSE(S) A MODERATE RISK OF MORBIDITY. THIS CONDITION MAY ALSO INCLUDE RX DRUG MANAGEMENT, OR A DECISON FOR MINOR SURGERY. The visit on the day of the encounter encompassed interpreting the data and educating the patient as to the nature of their condition, treatment options available according to their individual PMH, meds, allergies, and overall health/living conditions, as well as any potential risks or complications that may occur from a failure to adhere to, and participate in, the recommended course of therapy. The discussion included a complete verbal, and/or written explanation of the examination results, any x- rays taken, the proposed diagnosis, and outline of the treatment plan. A schedule for future care needs was also explained. The patient verbalized an understanding of the instructions at this time and agreed to be an active participant in their treatment. If the patient should think of any questions or concerns after the visit, I have encouraged the patient to call the office. H eel pain: F ASCIITIS: I explained to the patient the possible etiologies of Plantar Fasciitis including foot type/shoegear/activity level/exercise routine and the risks/benefits of all the different treatment options for heel pain including: No treatment at all, Rest, Ice, NSAIDs(only if well tolerated after meals), New/supportive Shoegear, Strappings and Tapings, Stretching exercises, Deep Tissue Massage, Heel cups/cushions, Arch support/shoe inserts, Custom orthoses, Topical analgesics including Aspercream/Voltaren gel, Night splint AFO for am stiffness, Cortisone injection therapy, Cast boot with crutches/cane/or walker for assisted ambulation, Physical Therapy, EPAT/ESWT, Interfil injection therapy, as well as surgical Norman/Endoscopic Fasciitomy surgical procedures if needed. Recommendations were made to limit barefoot walking, eliminate wearing nonsupportive shoegear (i.e. flip- flops or sandals, or a shoe with an easily bendable, foldable, or twistable sole) and wear shoegear with a good solid sole, a supportive arch, and plenty of room for an insert/orthotic if necessary. If wearing sandals was required by the patient, we recommended orthopedic sandals such as Orthoheel or Birkenstock even while in the home. If the patient wore heels in the past, we recommended they continue, but eliminate the use of flats. The advantages and disadvantages of each option were discussed and the patients questions re: types of shoegear, custom vs prefabricated inserts, activity level, PO vs Topical medications (and their respective potential complications/drug interactions/side effects), and consistency in home treatment regimens for optimal success were answered to their satisfaction. Literature detailing plantar fasciitis and the various treatment options were dispensed and reviewed. O rthotics: I explained to the patient the benefits of OT use. I explained that orthoses are medically necessary to decrease the foot pain through proper mechanical control, support of their foot , decrease stretch/strain on the plantar fascia, Prefabricated orthoses ( COMFORT PLUS - A ), were dispensed. The inserts were comfortably fit to the patients feet in both weight-bearing and non-weight bearing attitudes. The patient was instructed to increase the amount of time they were wearing the inserts, starting with one hour the first day and gradually increasing the amount of time worn until they are using them deadener and in all activities. They were asked to call the office if any signs of irritation were noted such as redness, blistering or callous formation. Instuctions were given for their usage and proper break-in/wear/care. Pt expressed comfort with and tolerance to inserts dispensed. P .R.I.C.E.: T he patient was counseled on the use of P.R.I.C.E. and NSAIDS (if well tolerated) to aid in the recovery from their painful condition, Recommended Topical analgesics including Aspercream/Biofreeze/Voltaren gel as directed. S hoe Gear Counseling: T he patient and I reviewed the types of shoes they should be wearing. My recommendation included obtaining a well-fitted shoe with a good supportive, non-foldable nor twistable sole, plenty of toe/room for the forefoot, and proper arch support. Based on todays examination, I recommended the patient look for new shoes, by having their feet professionally measured. We discussed that generally the best time of the day for a shoe fitting is the afternoon. Different shoes types and brands to best match the patients occupation and vocation were discussed. Specific brand selection will be up to the patient, their individual foot condition/deformities, and fit. The patient and I reviewed the standard new shoe break in period by wearing them for a few hours a day while checking for redness or sores as wear time is increased. The patient verbally confirmed to understanding the information discussed. S tretching Exercises: S tretching and deep tissue massage exercises for the patients injury/diagnosis were discussed and demonstrated, handouts were dispensed. Screening/Special Tests: F all Risk Screening: N o falls in the past year F ALLS: Screening for Future Fall Risk Have you had any falls with injury in the past year? N o * Follow Up: p rn * Images: * Sign off status: Completed true * Provider: Audrey Babcock DPM Date: 12/10/2024 Generated for Natty navas/Faxing/eTransmitting on: 1 12/10/2024 12:21 PM EST History and Physical Notes * HPI (History of Present Illness) Category Sub-Category Detail Notes Category Not es Heel pain Duration: a year or more Nature: tenderness, sharp pa in, stiffness Location: Proximal plantar asp ect of Heel , B/L Aggravated: standing, walking, w alking first thing in the morning/after rest Course: worse Treatments: rest/alter normal da grecia activity, deep tissue massage, medication ( oral anti-inflammatories - Motrin 800mg at the end of the day ) Examination Category Sub-Category Detail Notes Category Not es Heel Pain INSPECTION REVEALS: Pain on Palp ation to Plantar Fascia med. and central bands, intrinsic musc., infra-calcaneal bursa, and med calc tubercle, B/L, No pain: posterior/superior heel, achilles bursa/tendon, sinus tarsi, peroneals, or with lateral heel compression; no limited STJ ROM, calor, or ecchymosis Neurological SENSORY: Neurological exa m reveals intact sensorium, pain sensation normal, vibration sensation intact, pinprick sensation is normal in the lower extremities, Pt denies, anesthesia, burning, paresthesia, tingling, B/L TINEL'S COMPRESSION: Negative tarsal rick adrianne, meg pedis, and medial calcaneal nerves DEEP TENDON REFLEXES: Achilles, 2/4, B/L Dermatologic SKIN FINDINGS: Skin exam reveal s normal texture, elasticity, and turgor. There are no masses. The interspaces are clear Orthopedic GAIT ABNORMALITY: antalgic FOOT MORPHOLOGY: Pes Planus structure , Decreased Ankle joint dorsiflexion ROM, knee extended FOOTWEAR EVALUATION: shoe gear propertie s exacerbate patients foot/toe deformity MUSCLE STRENGTH: 5/5 all groups in a symmetrical fashion , B/L General Examination GENERAL APPEARANCE: Reveals a pleasant, alert, well- nourished, well-developed, well hydrated individual, who demonstrates proper attention to hygiene/body habitus, and is in no acute distress, Pt serves as own historian for office visit today ORIENTED: person, place, and t yousif Vascular DP PULSES (B): 3/4, B/L PT PULSES (B): 3/4, B/L CAPILLARY FILL TIME: immediate, all digi ts, B/L TEMPERTURE GRADIENT (C): warm to cool, p roximal to distal, B/L TROPHIC CONDITION-TEXTURE/ELASTICITY/TURGOR/HAIR GROWTH (B): normal, B/L EDEMA (C): absent, B/L PIGMENTATION: normal, B/L X-Rays - IMAGING REPORT Findings: normal b one and soft tissue density consistent for patients age and sex, navicular/cuneiform plantar subluxation with anterior cyma line, positive infra-calcaneal exostosis, no coalitions identified Fracture: Negative fractures i dentified Views: 3 views of Foot, LAT , LO, MO , B/L Taken by trained Podiatric Director Of Convention Services ( EF ) Clinical Indication(s): Evaluate for Fra cture, Evaluate Biomechanical Deformity
--- NOTE | 2025-10-10 11:33 | MHC.OFFVIS ---
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 Patient was last seen 05/02/24 for lower back and knee pain. At today's visit she states that for the past year she has had bilateral neck pain that is radiating into the upper back. She states that she has tried to change her sleeping habits with a new pillow. She states that she has not tried physical therapy or at home exercises but would like to discuss her options. Patient states that she does have numbness and tingling in her neck. Allergies amoxicillin (AMOXICILLIN) Allergy (Severe, Verified 10/03/25 09:34) RASH Penicillins Allergy (Severe, Verified 10/03/25 09:34) Rash Medication List - Last Reconciled 10/10/25 by Helen Summers MD acetaminophen (Tylenol Extra Strength) 1,000 mg PO Q6H PRN bismuth subsalicylate 2 tabs PO QID 14 days calcium carbonate (Oyster Shell Calcium 500) 500 mg PO DAILY 90 days cholecalciferol (vitamin D3) 50 mcg PO DAILY hydrocortisone acetate (Anucort-HC) 25 mg MT BID ibuprofen 800 mg PO TID lorazepam 0.5 mg (1/2 x 1 mg) PO BID PRN methylcellulose (laxative) (Citrucel) 1,000 mg (2 x 500 mg) PO DAILY sennosides (Natural Senna Laxative) 17.2 mg (2 x 8.6 mg) PO BEDTIME HPI Comments Details: Last seen by me on 05/02/2024 for right leg pain, suspected to be peroneal neuropathy. Here today for new issue of neck pain. Recently seen by ortho for shoulder pain. History of left shoulder injection and right RTC repair. Chronic neck pain. No PT, injections on neck, no xrays or MRI. Posterior C7 area pain goes to both posterior shouders. Does not radiate to arms. No numbness on fingers. No weakness. No bladder/bowel changes. [facility] Medical History (Updated 10/10/25 @ 11:52 by Helen Summers MD) Osteoporosis Patellofemoral pain syndrome Diverticular disease Overweight (BMI 25.0-29.9) Depression Insomnia Rosacea Vitamin D deficiency Chronic recurrent major depressive disorder Unspecified hemorrhoids Anxiety Hyperlipidemia, unspecified Migraine Surgical History (Updated 10/03/25 @ 09:39 by North Reynolds MD) History of surgical removal of skin lesion (06/18/25) S/P colonoscopy (01/16/24) S/P rotator cuff repair (~11/16/22) Hx laparoscopic cholecystectomy H/O tubal ligation Family History Father CVD (cardiovascular disease) Diabetes mellitus HTN (hypertension) Mother Diabetes mellitus HTN (hypertension) Social History Housing: House Alcohol intake: former Patient Tobacco Use Status: Never used Tobacco e-Cigarette/Vaping Use: Never Used Second Hand Smoke Exposure: No service: No Current occupational status: employed 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 Cognitive needs: No Hearing needs: No Vision needs: Yes Review of Systems Const All systems reviewed & are unremarkable except as noted in HPI and below Physical Exam Exam Exam: Constitutional: Patient appears to be in no acute distress, well nourished and well developed. Patient was appropriately conversant and oriented. Good historian. MSK: Inspection reveals appropriate head and neck positioning. Trigger points on upper trapezius bilateral. Cervical ROM was full. Spurling's sign negative. Bilateral shoulder, elbow and wrist ROM WNL. No ligamentous laxity or crepitance. No increased effusion. Strength is 5/5 in all muscle groups tested. No increased tone noted. Neurological: Neurologic examination of the upper and lower extremities was nonfocal with intact sensation, muscle stretch reflexes and without focal motor deficits . Bales?s negative bilaterally. Babinski was down going bilaterally. Clonus was negative. Gait is non-antalgic without loss of balance. Results Reviewed Results Reviewed: Ordering Physician: North Reynolds MD Date of Service: 07/15/22 Procedure(s): XR shoulder RT min 2V Accession Number(s): [id number] cc: North Reynolds MD~ EXAMINATION: XR SHOULDER, RIGHT CLINICAL INFORMATION: Pain COMPARISON: None TECHNIQUE: AP external rotation, Grashey, scapular Y, and axillary views of the right shoulder. FINDINGS: Mild acromioclavicular arthritis. No fracture. Glenohumeral and acromioclavicular alignment is anatomic with normal joint space. No abnormal soft tissue calcifications. XR/XR shoulder RT min 2V IMPRESSION: Mild acromioclavicular arthritis. No acute findings. I reviewed records from the following: Ortho Assessment & Plan Assessment & Plan (1) Neck pain: Code(s): M54.2 - Cervicalgia Category: Medical (2) Myofascial pain: Code(s): M79.18 - Myalgia, other site Category: Medical Plan Most of her pain is coming from bilateral upper trapezius, with trigger points. No signs of cervical radiculopathy or myelopathy. Referring to physical therapy. Cervical x-rays today for completion. We will consider trigger point injections if not improved with PT. Assessment and plan discussed with patient, and patient was agreeable. All questions were answered thoroughly. Follow up 3-4 months after PT. Helen Summers MD, RENAN Board Certified, [place] [employer] and Rehabilitation (ABPMR) Board Certified, [place] [employer] of Electrodiagnostic Medicine (ABEM) Orders: Orders XR cervical spine 3V Today M54.2 - Cervicalgia PT Evaluation and Treatment Today M54.2 - Cervicalgia, M79.18 - Myalgia, other site Coding Level of Care Code Est Pt Level 4 (56873) Diagnoses Neck pain M54.2 Myofascial pain M79.18
--- OUTSIDE RECORDS SUMMARY | 2025-10-10 12:21 | XMS_ITS | Patient Health Record ---
Author Organization [facility] Address [address] [place] [address] Care Team Providers Care Clinical Psychiatrist Name Role Phone Rodolfo KILPATRICK, [place] Primary Care Provider Alexander Loera [phone] Allergies Allergen (clinical drug ingredient) Drug/Non Drug Allergy documented on EMR Reaction Allergy Type Onset Date Status amoxicillin Amoxicillin Unknown Drug Allergy Act patricia Reason For Referral No Information Medications Medication SIG (Take, Route, Frequency, Duration) Notes Start Date End Date Status LORazepam 0.5 MG Tablet 1 tablet at bedt yousif as needed Orally Once a day Active Cholestyramine 4 GM/DOSE Powder 1 scoop in glass of water or orange juice Orally Once or Twice a day; Duration: 30 day(s) 06/07/2018 Active Vitamin D Active Ibuprofen 800 MG Tablet 1 tablet with fo od or milk as needed Orally prn Active Social History Tobacco Use: Social History Observation Description Date Details (start date - stop date) Never Smoker NA - NA Social History Drugs/Alcohol: Social Info Question Answer Notes Alcohol Screen Did you have a drink containing alcohol in the past year? Yes How often did you have a drink containing alcohol in the past year? Monthly or less (1 point) How many drinks did you have on a typical day when you were drinking in the past year? 1 or 2 drinks (0 point) How often did you have 6 or more drinks on one occasion in the past year? 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 Caffeine: 1-2 cups per day Section Notes: Nonsmoker; no sig alcohol Problems Problem Type SNOMED Code ICD Code Onset Dates Problem Status W/U Status Risk Notes Problem Screening for malignant neoplasm of colon (269724690) Encounter for screening for malignant neoplasm of colon (Z12.11) Active confirmed Problem Diarrhea (21274140) Diarrhea, unspecified type (R19.7) Active confirmed Plan Of Treatment Pending Test Test Name Order Date GI BIOPSY 07/13/2018 Future Test Test Name Order Date COLONOSCOPY 06/07/2018 Insurance Providers Payer Name Payer Address Payer Phone Subscriber Number Group Number Insured Name Patient Relationship to Insured Coverage Start Date Coverage End Date [facility] [address] [place], [place] [id number] ANDERSON FITZGERALD Self - patient is the insured Medical (General) History Medical History History ICD Code Denies [place],DM,CVA,Lung disease,renal dise ase Surgical History Surgery Date(Month/Year) Cholecystectomy Tubal ligation
--- OUTSIDE RECORDS SUMMARY | 2025-10-10 12:22 | XMS_ITS | Patient Health Record ---
[facility] Address [address] [place] [address] Care Team Providers Care Cold Work Operator Name Role Phone Edvin Reynolds MDneth Primary Care Provider Sal Walters Unavailable [phone] Allergies Allergen (clinical drug ingredient) Drug/Non Drug [...] with meals Orally Twice a day Active Immunizations Vaccine Route Administration Date Status Comme nts Influenza Unknown 08/22/2025 Administered Social History Tobacco Use: Social History Observation [...] Status Risk Notes Problem Plantar fascial fibromatosis (94264041) Plantar fasciitis, bilateral (M72.2) Active confirmed Vital Signs Blood pressure diastolic 70 mm Hg 10/10/2025 Height 5ft 2in in 10/10/2025 Blood pressure systolic 128 mm Hg 10/10/2025 Weight 150 lbs 10/10/2025 BMI 27.43 kg/m2 10/10/2025 Encounters Encounter [facility] Date [facility] [address] [facility]/10/2025 Sal Babcock Pain in right foot M79.671 ; Plantar fasciitis, bilateral M72.2 ; Calcaneal spur, right foot M77.31 ; Other myositis of right foot M60.871 ; Bursitis of right foot M77.51 ; Pain in left foot M79.672 ; Calcaneal spur, left foot M77.32 ; Other myositis of left foot M60.872 and Bursitis of left foot M77.[address] [address] 06/19/2025 Sal Babcock [address] [address] 10/10/2025 Sal Babcock Assessments Encounter Date Diagnosis (ICD Code) Assessment [...] foot (ICD-10 - M77.52) Plan Of Treatment Pending Test Test Name Order Date X ray : Foot, left 3V 10/10/2025 X ray : Foot, right 3V 10/10/2025 Insurance Providers Payer Name Payer Address Payer Phone Subscriber Number Group Number Insured Name Patient Relationship to Insured Coverage Start Date Coverage End Date Sony Melendez [address] [place] [address] [id number] Eboni Cobian Self - patient is the insured Medical (General) History Medical History History ICD Code Anxiety Back,Hip,and Knee pain covid-19 Depression Diverticulosis Gall bladder problems Headaches/Migraines Chicken pox Surgical History Surgery Date(Month/Year) rotator cuff surgery right arm 11/16/22 tubal ligation 10/04/1989 Gall bladder removal 2001
== END 2025-10-10 12:08 | disposition home or self-care (01) ==
PROVIDERS: PCP Internal Medicine; Visit Provider Physical Medicine & Rehabilitation
DX: M54.2 Cervicalgia (principal); M79.18 Myalgia, other site
CPT/HCPCS: 99213

== ENCOUNTER → 2025-10-10 11:53 | Outpatient (BNV) | payer BC, SELFPAY | PROVIDERS: PCP Internal Medicine; Visit Provider Radiology Diagnostic Radiology | DX: M47.812 Spondylosis without myelopathy or radiculopathy, cervical region (principal) | CPT/HCPCS: 72040 ==

== ENCOUNTER 2025-11-06 13:17 | Outpatient (AMB) | payer BC, SELFPAY ==
--- OUTSIDE RECORDS SUMMARY | 2025-06-20 05:30 | XMS_ITS ---
Author Organization [facility] Address [address] [place] [address] Care Team Providers Care Salesperson Handbags Name Role Phone Rodolfo KILPATRICK [place] Primary Care Provider Sal Walters Unavailable [phone] Allergies Allergen (clinical drug ingredient) Drug/Non Drug [...] Negative Encounters Encounter Location Date Provider [facility] [address] [place] [address] 06/20/2025 Sal Babcock Plan Of Treatment No Information Progress Notes * Eboni FITZGERALDDOB:[birth year] (60 yo F)Acc No.[id number]:06/20/2025 Progress Notes Patient: Odilia Eboni OSCAR Provider: Audrey Babcock DPM :1965 A ge:59 Y S ex:Female Date:06/20/2025 Address:[address] [place] [address] [facility] [place] Pcp:North Reynolds MD Subjective: * Chief Complaints: [...] enies. C ardiovascular: Pacemaker d enies. M LENS DOTTER d enies. W PW d enies. C [...] 0 06/20/2025 Generated for Natty Mcdonald/Shelley on: 01/07/2025 05:22 PM EST
--- OUTSIDE RECORDS SUMMARY | 2025-09-02 09:00 | XMS_ITS ---
Author Organization [facility] Address [address] [place] [address] Care Team Providers Care Wet End Tester Name Role Phone Rodolfo KILPATRICK, [place] Primary Care Provider Unava Sal Kyle Unavailable [phone] Encounters Encounter Location Date Provider Diagnosis [facility] [address] [place] [address] 09/02/2025 Sla Babcock Plan Of Treatment No Information Progress Notes * Eboni FITZGERALDDOB:[birth year] (60 yo F)Acc No.[id number]:09/02/2025 Progress Notes Patient: Eboni POE Provider: Audrey Babcock DPM :1965 A ge:59 Y S ex:Female Date:09/02/2025 Address:[address] [place] [address] Pcp:North Reynolds MD Subjective: * Chief Complaints: * * Medical History: Objective: * Vitals: Assessment: Plan: * Treatment: * Images: * The named appointment provid er may or may not be the originator of this progress note, and it is not deemed complete until electronically signed by the appointment provider. Sign off status: Pending * Provider: Audrey Babcock DPM Date: Generated for Marbellai yosef/Vera/eTransmitting on: 01/07/2025 05:22 PM EST
[2025-11-06 13:19] VITALS: BP 120/80; PULSE 78; RESP 18; O2SAT 99; BMI 28.2
--- NOTE | 2025-11-06 13:19 | MHC.PC.OV ---
Vital Signs 11/06/25 13:19 Height 5 ft 2 in Weight 154 lb BMI 28.2 BP 120/80 Blood Pressure Location Lt brachial Position Sitting Respiration 18 Pulse 78 Pulse Source Pulse Oximeter Temp Source Temporal Artery Scan Pulse Oximetry (%) 99 Oxygen Delivery Method Room Air Intake Visit Reasons: bronchitis medication not working Casket Trimmer Required: No Accompanied by: Self / Same As Patient Allergies amoxicillin (AMOXICILLIN) Allergy (Severe, Verified 11/06/25 13:39) RASH Penicillins Allergy (Severe, Verified 11/06/25 13:39) Rash Medication List - Last Reconciled 11/06/25 by LETICIA Giraldo acetaminophen (Tylenol Extra Strength) 1,000 mg PO Q6H PRN bismuth subsalicylate 2 tabs PO QID 14 days calcium carbonate (Oyster Shell Calcium 500) 500 mg PO DAILY 90 days cholecalciferol (vitamin D3) 50 mcg PO DAILY hydrocortisone acetate (Anucort-HC) 25 mg [place] BID ibuprofen 800 mg PO TID lorazepam 0.5 mg (1/2 x 1 mg) PO BID PRN methylcellulose (laxative) (Citrucel) 1,000 mg (2 x 500 mg) PO DAILY sennosides (Natural Senna Laxative) 17.2 mg (2 x 8.6 mg) PO BEDTIME Tobacco use date assessed: 11/06/25 Dental Screening Dental Screen Date: 11/06/25 Did you have a dental visit in the last 12 months?: Yes Did you have a dental problem in the last 6 months where you did not have access to dental care?: No Was dental information given to patient?: Patient has dentist HPI bronchitis medication not working HPI Details The patient is presenting today for ongoing coughing and sneezing for over a month now. Reports going to urgent care and was given prednisone that help during the time of taking he medication. Reports that the symptoms started returning after the prednisone completed. States that she did not sleep lastnight due to the coughing, which she reports is worse at night. The patient denies fevers, chills, and body aches, denies heartburn. Reports that the cough is nonproductive. Reports mild sob and reports that she has been using the albuterol inhaler that they gave her at the urgent care. The patient lungs were clear upon auscultation bilaterally. Nasal cavity reddened with mild edema. No drainage noted. [facility] Medical History Osteoporosis Patellofemoral pain syndrome Diverticular disease Overweight (BMI 25.0-29.9) Depression Insomnia Rosacea Vitamin D deficiency Chronic recurrent major depressive disorder Unspecified hemorrhoids Anxiety Hyperlipidemia, unspecified Migraine Surgical History History of surgical removal of skin lesion (06/18/25) S/P colonoscopy (01/16/24) S/P rotator cuff repair (~11/16/22) Hx laparoscopic cholecystectomy H/O tubal ligation Family History Father CVD (cardiovascular disease) Diabetes mellitus HTN (hypertension) Mother Diabetes mellitus HTN (hypertension) Social History Housing: House Alcohol intake: former Patient Tobacco Use Status: Never used Tobacco e-Cigarette/Vaping Use: Never Used Second Hand Smoke Exposure: No service: No Current occupational status: employed 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 Cognitive needs: No Hearing needs: No Vision needs: Yes Questionnaire Thrive Questionnaire Date Thrive assessed: 11/06/25 I am a: Patient What is your living situation today?: I have a steady place to live Within the past 12 months, did the food you bought not last and you didn't have the money to get more?: Never true Within the past 12 months, did you worry whether your food would run out before you got money to buy more?: Never true Do you have trouble paying for medicines?: No Do you have trouble getting transportation to medical appointments?: No Do you have trouble paying your heating and electricity bill?: No Do you have trouble taking care of your child, family member or friend?: No Do you have trouble with day-to-day activities such as bathing, preparing meals, shopping, managing finances, etc.?: No Are you currently unemployed and looking for a job?: No Are you interested in more education?: No Please select the resources that you would like help with: None Currently or been in a relationship where the following occur: No concerns reported THRIVE Score: 0 CASSANDRA-7 AMB Questionnaire CASSANDRA-7 Date CASSANDRA - 7 assessed: 03/28/25 Source: Developed by Drs. Alexander Shipley, Ceci Bob, Marvel Marrero and colleagues, with an educational amarjit from [employer]. Review of Systems Const Denies body aches, Denies chills, Denies fever(s), Reports headache(s) (Mild intermittently) and Denies poor appetite Eyes Reports no additional complaints ENT Denies dysphagia, Denies dizziness, Denies otalgia, Reports headache(s) (Mild intermittently), Reports nasal congestion, Denies odynophagia, Reports post nasal drip, Denies sinus pressure and Reports sore throat (Mild, intermittently) Card Denies chest pain, Denies syncope, Denies edema, Denies irregular heart rhythm, Denies lightheadedness and Denies dyspnea Resp Reports cough (Subacute, worse at night) and Denies dyspnea GI Denies abdominal pain, Denies constipation, Denies dysphagia, Denies diarrhea, Denies nausea, Denies odynophagia and Denies vomiting Reports no additional complaints Musc Reports no additional complaints and Denies abnormal gait Skin/Breast Reports system reviewed and no additional complaints, except as documented Neuro Denies abnormal gait, Denies dizziness, Denies syncope and Reports headache(s) (Mild intermittently) Psych Reports no additional complaints Physical exam (Primary Care) Vital Signs: Last Vital Signs Pulse 78 11/06/25 13:19 Resp 18 11/06/25 13:19 BP 120/80 11/06/25 13:19 Pulse Ox 99 11/06/25 13:19 Oxygen Delivery Method Room Air 11/06/25 13:19 BMI result Body Mass Index 28.2 Tobacco/Smoking Status: Tobacco use Status Tobacco use date assessed 11/06/25 11/06/25 13:28 Patient Tobacco Use Status Never used Tobacco 11/06/25 13:28 e-Cigarette/Vaping Use Never Used 11/06/25 13:28 Thrive Assessment: Date of Thrive Assessment Date Thrive assessed 11/06/25 11/06/25 13:28 Currently or been in a relationship where the following occur: No concerns reported Const General: cooperative, healthy appearing, comfortable and no acute distress Orientation/consciousness: patient oriented x3 HENMT Head: Yes normocephalic Ears: TM's normal bilaterally General nose exam: Abnormal mucous membranes and turbinates present (Mild edema) erythematous bilateral Face and sinus: Yes sinuses nontender Eyes General: appearance normal, both eyes and all related structures Conjunctivae: conjunctivae normal Neck Neck: Yes full ROM and Yes no lymphadenopathy Resp Effort & Inspection: normal respiratory effort Auscultation: clear to auscultation bilaterally, no crackles, no rales, no rhonchi and no wheezes Cardio Rate: regular rate Rhythm: regular rhythm Heart sounds: S1 normal heart sound present and S2 normal heart sound present Skin General skin exam: no rashes or lesions noted Neuro General: patient oriented x3 Gait exam (Neuro): Normal gait present Extrem General: Yes normal to inspection, Yes full ROM and No edema Psych Affect: normal affect Attitude: cooperative Insight: Good insight present (Psych) Judgement: Good judgement present (Psych) Coding Level of Care Code Est Pt Level 3 (56941) Diagnoses Allergic rhinitis, unspecified seasonality, unspecified trigger J30.9 Allergic rhinitis trigger: unspecified Allergic rhinitis seasonality: unspecified Subacute cough R05.2 Time Spent (min) 27 Assessment & Plan Assessment & Plan (1) Allergic rhinitis: Code(s): J30.9 - Allergic rhinitis, unspecified Category: Medical Qualifiers: Allergic rhinitis trigger: unspecified Allergic rhinitis seasonality: unspecified Qualified Code(s): J30.9 - Allergic rhinitis, unspecified (2) Subacute cough: Code(s): R05.2 - Subacute cough Category: Medical Plan The patient symptoms started over a month ago with coughing and sneezing, with a cough being worse at nighttime. She was seen in the urgent care and was ordered prednisone and albuterol inhaler. The patient reports feeling better while she was on the prednisone and then her cough started back up after the prednisone was completed. Explained to the patient that her symptoms are consistent with allergies. Encouraged the patient to take Claritin 10 mg OTC daily for at least a week then as needed. Flonase inhaler ordered to be taken b.i.d. for at least a week then as needed. The patient was also ordered benzonatate 200 mg b.i.d. for 14 days. Increase p.o. fluids and avoid allergens. Encouraged the patient to follow up if symptoms worsens or not resolving. Medications: New fluticasone propionate 50 mcg/actuation administer into each nostril 1 spray intranasal BID 16 grams 1RF benzonatate 200 mg PO BID PRN 30 caps 1RF cough 14 days
--- OUTSIDE RECORDS SUMMARY | 2025-11-06 17:23 | XMS_ITS | Patient Health Record ---
[facility] Address [address] [place] [address] Care Team Providers Care Ship Scaler Name Role Phone Edvin Reynolds MDneth Primary Care Provider Sal Walters Unavailable [phone] Allergies Allergen (clinical drug ingredient) Drug/Non Drug [...] Status Risk Notes Problem Plantar fascial fibromatosis (85448602) Plantar fasciitis, bilateral (M72.2) Active confirmed Vital Signs Blood pressure diastolic 70 mm Hg 10/10/2025 Height 5ft 2in in 10/10/2025 Blood pressure systolic 128 mm Hg 10/10/2025 Weight 150 lbs 10/10/2025 BMI 27.43 kg/m2 10/10/2025 Encounters Encounter [facility] Date [facility] [address] 10/10/2025 Sal Babcock Pain in right foot M79.671 ; Plantar fasciitis, bilateral M72.2 ; Calcaneal spur, right foot M77.31 ; Other myositis of right foot M60.871 ; Bursitis of right foot M77.51 ; Pain in left foot M79.672 ; Calcaneal spur, left foot M77.32 ; Other myositis of left foot M60.872 and Bursitis of left foot M77.[address] [address] 06/19/2025 Sal Babcock [address] [address] 10/10/2025 Sal Babcock Assessments Encounter Date Diagnosis [...] Date Coverage End Date Sony Melendez [address] [place] [address] [id number] Eboni Cobian Self - patient is the insured Medical (General) History Medical History History ICD Code Anxiety Back,Hip,and Knee pain covid-19 Depression Diverticulosis Gall bladder problems Headaches/Migraines Chicken pox Surgical History Surgery Date(Month/Year) rotator cuff surgery right arm 11/16/22 tubal ligation 10/04/1989 Gall bladder removal 2001
--- OUTSIDE RECORDS SUMMARY | 2025-11-06 17:23 | XMS_ITS | Patient Health Record ---
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 Caffeine: 1-2 cups per day Section Notes: Nonsmoker; no sig alcohol Problems Problem Type SNOMED Code ICD Code Onset Dates Problem Status W/U Status Risk Notes Problem Screening for malignant neoplasm of colon (328950090) Encounter for screening for malignant neoplasm of colon (Z12.11) Active confirmed Problem Diarrhea (89686600) Diarrhea, unspecified type (R19.7) Active confirmed Plan Of Treatment Pending Test Test Name Order Date GI BIOPSY 07/13/2018 Future Test Test Name Order Date COLONOSCOPY 06/07/2018 Insurance Providers Payer Name Payer Address Payer Phone Subscriber Number Group Number Insured Name Patient Relationship to Insured Coverage Start Date Coverage End Date [facility] [address] [place], [place] [id number] ANDERSON FITZGERALD Self - patient is the insured Medical (General) History Medical History History ICD Code Denies [place],DM,CVA,Lung disease,renal dise ase Surgical History Surgery Date(Month/Year) Cholecystectomy Tubal ligation
== END 2025-11-06 14:22 | disposition home or self-care (01) ==
LOC: HO.HMCH 13:18
PROVIDERS: PCP Internal Medicine
DX: J30.9 Allergic rhinitis, unspecified (principal); R05.2 Subacute cough

== ENCOUNTER 2025-11-07 10:20 | Outpatient (AMB) | payer BC, SELFPAY ==
--- OUTSIDE RECORDS SUMMARY | 2025-06-20 05:30 | XMS_ITS ---
Author Organization [facility] Address [address] [place] [address] Care Team Providers Care Reimbursement Analyst Name Role Phone Rodolfo KILPATRICK [place] Primary Care Provider Sal Walters Unavailable [phone] Allergies Allergen (clinical drug ingredient) Drug/Non Drug [...] Negative Encounters Encounter Location Date Provider Diagnosis [facility] [address] [place] [address] 06/20/2025 Sal Babcock Plan Of Treatment No Information Progress Notes * Eboin FITZGERALDDOB:[birth year] (60 yo F)Acc No.[id number]:06/20/2025 Progress Notes Patient: Odilia Eboni OSCAR Provider: Audrey Babcock DPM :1965 A ge:59 Y S ex:Female Date:06/20/2025 Address:[address] [place] [address] [facility] [id number] Pcp:North Reynolds MD Subjective: * Chief Complaints: [...] enies. C ardiovascular: Pacemaker d enies. M MANAGER CONTACT d enies. W PW d enies. C [...] 0 06/20/2025 Generated for Natty Mcdonald/Shelley on: 01/08/2025 11:44 AM EST
--- OUTSIDE RECORDS SUMMARY | 2025-09-02 09:00 | XMS_ITS ---
Author Organization [facility] Address [address] [place] [address] Care Team Providers Care Information Technology Instructor Name Role Phone Rodolfo KILPATRICK, [place] Primary Care Provider Unava Sal Kyle Unavailable [phone] Encounters Encounter Location Date Provider Diagnosis [facility] [address] [place] [address] 09/02/2025 Sal Babcock Plan Of Treatment No Information Progress Notes * Eboni FITZGERALDDOB:[birth year] (60 yo F)Acc No.[id number]:09/02/2025 Progress Notes Patient: Eboni POE Provider: Audrey Babcock DPM :1965 A ge:59 Y S ex:Female Date:09/02/2025 Address:[address] [place] [address] Pcp:North Reynolds MD Subjective: * Chief Complaints: * * Medical History: Objective: * Vitals: Assessment: Plan: * Treatment: * Images: * The named appointment provid er may or may not be the originator of this progress note, and it is not deemed complete until electronically signed by the appointment provider. Sign off status: Pending * Provider: Audrey Babcock DPM Date: Generated for Natty navas/Vera/eTransmitting on: 01/08/2025 11:44 AM EST
--- NOTE | 2025-11-07 10:27 | MHC.OFFVIS ---
Vital Signs 11/07/25 10:31 Height 5 ft 2 in Weight 154 lb 5.177 oz BMI 28.2 BP 111/74 Blood Pressure Location Lt brachial Position Sitting Pulse 76 Intake Visit Reasons: FMLA R/S x1. Intake Note: Eboni presents in the office as a follow up - had antibiotics from bacteria. CC: Was told that she has allergies or bronchitis because her symptoms are not going away. She states that her stomach is not perfect but it is better than it was. She states she has constipation from taking calcium but she needs it for her osteoparosis. Air Quality Chemist Required: No Allergies amoxicillin (AMOXICILLIN) Allergy (Severe, Verified 11/07/25 10:32) RASH Penicillins Allergy (Severe, Verified 11/07/25 10:32) Rash HPI HPI FMLA R/S x1.: Details: LAST VISIT Epigastric abdominal pain Postprandial abdominal bloating Postprandial diarrhea Post-cholecystectomy syndrome Plan Will check for malabsorption, check for celiac. Fecal calprotectin, CRP, H pylori breath test in the office today. Patient reports epigastric pain as well will check lipase. Patient reports postprandial loose stools we will do GI panel as well fecal fat qualitative and pancreatic last days to rule out pancreatic insufficiency. Patient is status post cholecystectomy, possible post cholecystectomy syndrome. Patient was encouraged to eat a low fat meals as even healthy fat like avocado can worsen her symptoms. We will discuss low FODMAP diet. List of food recommended as well as list of food to avoid given to patient. Patient will start taking 1-2 fiber supplements daily. I will send Citrucel in. However patient can take senna to help her empty her bowels. Patient was encouraged to increase fluid intake and activity to promote better bowel motility. Reviewed report from her upper GI study possible that contrast was diluted by bile. Patient might require to take bile salt binder is like Questran. Will await for lab results and re-evaluate patient symptoms after changing her diet. Patient has been dealing with this ever since she had her cholecystectomy for many years. Unlikely malabsorption. Patient denies any weight loss in the past few years. F/u in 6 months sooner if needed. Patient is agreeable to this plan and verbalizes understanding of instructions. She was given the opportunity to ask questions and all questions answered. ? Thank you for allowing me to participate in her care Orders Transglutaminase IgA Today R10.9 Fecal Fat Qualitative Today R19.7 Calprotectin, Fecal Today R15.9 C Reactive Protein Today K58.9 H Pylori Breath Test Today K21.9 Lipase Today R10.9 Magnesium Today N18.9 GI Panel Today R19.7 Pancreatic Elastase-1 Today R10.9 New methylcellulose (laxative) (Citrucel) take it with full glass of water 1,000 mg (2 x 500 mg) PO DAILY 60 tabs 2RF K52.9 sennosides (Natural Senna Laxative) 17.2 mg (2 x 8.6 mg) PO BEDTIME 60 tabs 3RF constipation K59.00 TODAY'S VISIT: Patient is here today for follow-up. Patient reports to be feeling much better. Treated for H pylori after last visit, completed empiric therapy even though patient was having nausea and epigastric pain. Patient was also diagnosed with norovirus, stooling normalized and she no longer has diarrhea. Patient reports that she is constipated now due to taking calcium. Patient is trying to take calcium only couple times a week. Discussed with her that she should be taking it daily as prescribed by her PCP. Patient no longer is taking anything for acid reflux. We will retest her for H pylori today. Patient denies any nausea or vomiting. Denies any dyspepsia, dysphagia or odynophagia. Patient reports to be feeling well [facility] Medical History Osteoporosis Patellofemoral pain syndrome Diverticular disease Overweight (BMI 25.0-29.9) Depression Insomnia Rosacea Vitamin D deficiency Chronic recurrent major depressive disorder Unspecified hemorrhoids Anxiety Hyperlipidemia, unspecified Migraine Surgical History History of surgical removal of skin lesion (06/18/25) S/P colonoscopy (01/16/24) S/P rotator cuff repair (~11/16/22) Hx laparoscopic cholecystectomy H/O tubal ligation Family History Father CVD (cardiovascular disease) Diabetes mellitus HTN (hypertension) Mother Diabetes mellitus HTN (hypertension) Social History Housing: House Alcohol intake: former Patient Tobacco Use Status: Never used Tobacco e-Cigarette/Vaping Use: Never Used Second Hand Smoke Exposure: No service: No Current occupational status: employed 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 Cognitive needs: No Hearing needs: No Vision needs: Yes Review of Systems Const Denies weight gain and Denies weight loss ENT Reports no additional complaints, Denies dysphagia and Denies odynophagia Card Reports no additional complaints Resp Reports no additional complaints GI Denies abdominal pain, Denies belching, Denies melena, Denies bloating, Denies change in bowel habits, Reports constipation, Denies dysphagia, Denies excessive flatus, Denies dyspepsia, Denies heartburn, Denies diarrhea, Denies loose stools, Denies nausea, Denies odynophagia and Denies vomiting Musc Reports no additional complaints Neuro Reports no additional complaints Psych Reports no additional complaints Endo Reports no additional complaints Physical Exam Vital Signs: Last Vital Signs Pulse 76 11/07/25 10:31 BP 111/74 11/07/25 10:31 BMI result Body Mass Index 28.2 Const General: healthy appearing, no acute distress and well developed Nutritional Appearance: obese Orientation/consciousness: patient oriented x3 Resp Effort & Inspection: normal respiratory effort, able to speak in complete sentences, no tracheal deviation and symmetric chest movement Auscultation: clear to auscultation bilaterally Cardio Rate: regular rate GI Inspection: Yes normal to inspection, No distended and Yes obesity Palpation (GI): Soft to palpation, not firm, nontender and No hepatosplenomegaly present Auscultation: normal bowel sounds General: Yes no CVA tenderness Back/Spine/Pelvis Back: no CVA tenderness Skin General skin exam: elasticity normal, turgor normal and dry skin Neuro General: patient oriented x3 Psych Appearance: grossly normal Mental Status: mental status grossly normal Results Reviewed Results Reviewed: Laboratory Tests 02/19/25 02/19/25 02/28/25 15:45 16:12 06:30 C-Reactive Protein 0.43 Lipase 38 Stool Fat, Qual Normal Stool Calprotectin 8 Stool Pancreat Elastase 267 Tiss Transglutamin IgA 1.2 H. pylori Breath Test Positive Assessment & Plan Assessment & Plan (1) Epigastric abdominal pain: Code(s): R10.13 - Epigastric pain Category: Medical (2) Postprandial abdominal bloating: Code(s): R14.0 - Abdominal distension (gaseous) (3) Postprandial diarrhea: Code(s): K52.9 - Noninfective gastroenteritis and colitis, unspecified (4) Postcholecystectomy syndrome: Code(s): K91.5 - Postcholecystectomy syndrome Plan Patient will be retested for H pylori today and will need to eat treat if positive, however patient reports no symptoms. Denies any epigastric pain or discomfort. Discussed with patient avoiding dietary triggers for now. She will not be put on any PPI unless she is symptomatic. Patient was encouraged to take fiber supplement. She may use Senokot as needed for constipation. Patient was encouraged to take calcium every day as ordered by her PCP. Patient may take vitamin-C with that as well to help with absorption. Patient will return in 6 months. She will call us if she will have any GI concerning symptoms. Patient is agreeable to this plan and verbalizes understanding of instructions. She was given the opportunity to ask questions and all questions answered. Thank you for allowing me to participate in her care Orders: Orders H Pylori Breath Test Today K21.9 - Gastro-esophageal reflux disease without esophagitis Medications: Refilled methylcellulose (laxative) (Citrucel) take it with full glass of water 1,000 mg (2 x 500 mg) PO DAILY 60 tabs 2RF K52.9 - Noninfective gastroenteritis and colitis, unspecified Coding Level of Care Code Est Pt Level 4 (17514) Add On Problem Visit Only Diagnoses Epigastric abdominal pain R10.13 Postprandial abdominal bloating R14.0 Postprandial diarrhea K52.9 Postcholecystectomy syndrome K91.5 Time Spent (min) 40 Comment 25 minutes spent with patient and additional 15 minutes spent reviewing her records
[2025-11-07 10:31] VITALS: BP 111/74; PULSE 76; BMI 28.2
--- OUTSIDE RECORDS SUMMARY | 2025-11-07 11:44 | XMS_ITS | Patient Health Record ---
[facility] Address [address] [place] [address] Care Team Providers Care Delivery Architect Name Role Phone Edvin Reynolds MDneth Primary Care Provider Sal Walters Unavailable [phone] Allergies Allergen (clinical drug ingredient) Drug/Non Drug [...] Status Risk Notes Problem Plantar fascial fibromatosis (96876907) Plantar fasciitis, bilateral (M72.2) Active confirmed Vital Signs Blood pressure diastolic 70 mm Hg 10/10/2025 Height 5ft 2in in 10/10/2025 Blood pressure systolic 128 mm Hg 10/10/2025 Weight 150 lbs 10/10/2025 BMI 27.43 kg/m2 10/10/2025 Encounters Encounter Location Date [facility] [address] [facility]/10[facility]25 Sal Babcock Pain in right foot M79.671 ; Plantar fasciitis, bilateral M72.2 ; Calcaneal spur, right foot M77.31 ; Other myositis of right foot M60.871 ; Bursitis of right foot M77.51 ; Pain in left foot M79.672 ; Calcaneal spur, left foot M77.32 ; Other myositis of left foot M60.872 and Bursitis of left foot M77.[address] [address] 06/19/2025 Sal Babcock [address] [address] 10/10/2025 Sal Babcock Assessments Encounter Date Diagnosis [...] Date Coverage End Date [employer] Melendez [address] [place] [address] [id number] Eboni Cobian Self - patient is the insured Medical (General) History Medical History History ICD Code Anxiety Back,Hip,and Knee pain covid-19 Depression Diverticulosis Gall bladder problems Headaches/Migraines Chicken pox Surgical History Surgery Date(Month/Year) rotator cuff surgery right arm 11/16/22 tubal ligation 10/04/1989 Gall bladder removal 2001
--- OUTSIDE RECORDS SUMMARY | 2025-11-07 11:44 | XMS_ITS | Patient Health Record ---
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 Caffeine: 1-2 cups per day Section Notes: Nonsmoker; no sig alcohol Problems Problem Type SNOMED Code ICD Code Onset Dates Problem Status W/U Status Risk Notes Problem Screening for malignant neoplasm of colon (432211783) Encounter for screening for malignant neoplasm of colon (Z12.11) Active confirmed Problem Diarrhea (81133774) Diarrhea, unspecified type (R19.7) Active confirmed Plan Of Treatment Pending Test Test Name Order Date GI BIOPSY 07/13/2018 Future Test Test Name Order Date COLONOSCOPY 06/07/2018 Insurance Providers Payer Name Payer Address Payer Phone Subscriber Number Group Number Insured Name Patient Relationship to Insured Coverage Start Date Coverage End Date [facility] [address] [place], [place] [id number] [phone] [id number] ANDERSON FITZGERALD Self - patient is the insured Medical (General) History Medical History History ICD Code Denies [place],DM,CVA,Lung disease,renal dise ase Surgical History Surgery Date(Month/Year) Cholecystectomy Tubal ligation
== END 2025-11-07 11:00 | disposition home or self-care (01) ==
LOC: HO.HGI 10:21
PROVIDERS: PCP Internal Medicine; Visit Provider Nurse Practitioner Family
DX: R10.13 Epigastric pain (principal); R14.0 Abdominal distension (gaseous); K52.9 Noninfective gastroenteritis and colitis, unspecified; K91.5 Postcholecystectomy syndrome
CPT/HCPCS: 99214

== ENCOUNTER 2025-11-07 10:20 | Outpatient (REF) | payer BC, SELFPAY | END 2025-11-07 10:21 | disposition home or self-care (01) | LOC: HO.LNP 10:20 | PROVIDERS: PCP Internal Medicine; Visit Provider Nurse Practitioner Family | DX: K52.9 Noninfective gastroenteritis and colitis, unspecified (principal); K91.5 Postcholecystectomy syndrome; K21.9 Gastro-esophageal reflux disease without esophagitis; R10.13 Epigastric pain; R14.0 Abdominal distension (gaseous) | CPT/HCPCS: 83013 ==